=== PATIENT | female | born 1990 | race Caucasian/White ===

== ENCOUNTER 2016-12-07 15:04 | Emergency (ER) | payer OTHER ==
[~2016-12-07] VITALS: Ht 167.6 cm; Wt 117.9 kg
[~2016-12-07 15:04] MED LIST: IBUP-1428 PO
[2016-12-07 15:08] VITALS: TEMP 36.5; Ht 167.6 cm; Wt 117.9 kg
[2016-12-07] MEDS ORDERED: PROPARACAINE HCL 0.5% OP SOLN 15 ML BTL OP STA (15:27)
--- NOTE | 2016-12-07 16:35 | EMERGENCY ROOM VISIT NOTE ---
History First contact with patient: 15:20 Chief Complaint: EYE ASSESSMENT Stated Complaint: HAVING PROBLEMS W VISION History of Present Illness The patient is a 26 year old female who presents to the Emergency Room via private vehicle with complaints of "having problems with vision". The patient states that around 8 AM today she woke up with what she describes as eye pain bilaterally, that is worse with looking at bright lights. She states that she rates the pain as a 7/10. She describes as an achy sensation in the eyes bilaterally. There is no eye pressure or headache. She denies any speech troubles, weakness, sensation of foreign body in the eye, fever, chills, nausea , vomiting, history of contacts, trauma to the head. She does note that she lightly struck the forehead region about 5 days ago while taking the dog outside. There was no loss of consciousness or symptoms afterward. She did see her eye doctor in November, noted minor changes in vision and she began wearing her glasses 1 month ago. Review of Systems A complete 6-point Review of Systems was discussed with the patient, with pertinent positives and negatives listed in the History of Present Illness. All remaining Review of Systems questions can be considered negative unless otherwise specified. Past Medical/Surgical History Medical Problems: (1) Abdominal pain (2) Abdominal pain (3) Abdominal pain (4) Abdominal pain in (5) Abdominal pain in (6) Arm paresthesia, left (7) Headache (8) Kidney stone (9) Lyme disease (10) Nausea With Vomiting (11) Paresthesia and pain of both upper extremities (12) Paresthesia and pain of both upper extremities (13) Paresthesia of left arm (14) Sinusitis (15) Tobacco Use Disorder (16) Urinary tract infection (17) Urinary tract infection (18) Weakness Surgical Problems: (1) Cholecystectomy (2) Tubal ligation status Family History Asthma Diabetes mellitus FH: cancer Hypertension Seizures Social History Smoking Status: Never Smoker Alcohol Use: occasionally Drug Use: none Marital Status: in relationship Housing Status: lives with family Occupation Status: unemployed Current/Historical Medications Scheduled Clindamycin Phosphate (Topical (Cleocin-T), 1 APPLN TOP BID Scheduled PRN Ibuprofen (Motrin), 800 MG PO Q6H PRN for Pain Allergies Coded Allergies: Latex (Verified Allergy, Mild, ., 12/07/16) Physical Exam Vital Signs Date Time Temp Pulse Resp B/P Pulse Ox O2 Delivery O2 Flow Rate FiO2 12/07/16 16:43 80 16 148/94 98 12/07/16 15:08 36.5 69 18 131/80 98 Room Air Right Eye Acuity: 20/15 Left Eye Acuity: 20/20 Physical Exam VITAL SIGNS - Vital signs and nursing notes were reviewed. Patient is afebrile , normotensive, non-tachycardic and is saturating well on room air 98%. GENERAL -26-year-old female appearing her stated age. Communicates well with provider and answers questions appropriately. HEAD - Normocephalic, Atraumatic. No William's Sign or Raccoon's Eyes. No depressed skull fractures palpable. EYES - PERRL with EOMI bilaterally. Sclera without noticeable foreign body or excoriations. No conjunctival injection noted in the either eye. Without subconjunctival hemorrhage. Palpebral conjunctiva pink and moist with no injection or discharge noted. Brief fundoscopic exam demonstrates no AV-nicking , cotton wool spots, or flame hemorrhages. Slit lamp examination performed as further described. EARS - No deformities of external structures noted on gross examination bilaterally. Handle of malleus, umbo, cone of light, pars tensa/flaccid all easily visualized. NOSE - Midline and without cyanosis. Without discharge. MOUTH/OROPHARYNX - Without perioral cyanosis. Tongue midline with equal elevation of palate bilaterally. No tonsillar hypertrophy, erythema, or exudates noted. Fair dentition noted. NECK - FROM assessed. No cervical lymphadenopathy noted. Slit Lamp Examination was performed of the bilateral eye(s). Alcaine drops were applied to the affected eye(s) for proper anesthetization. The affected eye(s) were stained with Fluorescein stain to precipitate adequate visualization of any conjunctival/scleral excoriations or ulcers. The patient's face was comfortably rested on the chin guard of the slit lamp apparatus. The lights were dimmed and the affected eye(s) were thoroughly examined under microscopy using the blue light. He diffuse haze of uptake was present but no identifiable abrasions comedogenic lesions, ulcerations or evidence of keratitis. I suspect that the generalized haze may be secondary to environmental irritants that may have been sustained yesterday such as waned, and dry heat Additionally, the eye(s) were examined under microscopy using the regular light. Close examination revealed no abnormalities. 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 Funduscopic exam with both the coags will and panoptic scope revealed normal funduscopic exam. Patient tolerated the procedure well and no complications were met. An Automated Tonometer was utilized to obtain bilateral orbital pressures. The pressures in the LEFT eye were found to be 15, 14, 16 and 16 with an average of 15.3. The pressures in the RIGHT eye were found to be 16, 13, 14 and 17 with an average of 15.0. Patient tolerated the procedure well and no complications were met. Medical Decision & Procedures Medical Decision Patient was seen and evaluated as above. After obtaining a thorough history and physical examination pressures were obtained of the eyes and were noted to be normal. Patient's visual acuity was also within normal limits. She complained of no trouble with vision. There was only bilateral eye pain. I did obtain Alcaine drops, and anesthetize the eyes which nearly relieved her pain completely. I then performed a slit lamp exam as described above. There was diffuse very minimal uptake, likely secondary to irritation such as wind or try heat yesterday. No evidence of keratitis. There was no flare or cells visualized. I did discuss the case with the attending, and then discussed the case with the on-call town planner, Dr. Dejesus, at 4:26 PM. He recommended I provide the patient with artificial tears. He also noted that patient may call his office on Friday if symptoms persist. He and I both agree the patient does not appear to have any emergent nature to this. The patient is stable for discharge. She stated that she felt comfortable purchasing artificial tears [id number]. She was educated upon today's findings and worrisome symptoms in which to return. She questions answered prior to discharge, and was discharged home in good condition. I suspect the patient is experiencing bilateral eye irritation secondary to either the wind or dry heat. In the evaluation and treatment of this patient, the following differential diagnoses were considered: Corneal Abrasion, Conjunctivitis, Eye Contusion, Globe Injury, Orbital Floor Injury (Blowout Fracture), Corneal Ulcer, Keratitis , Herpes Zoster Opthalmic, Blepharitis, Orbital Cellulitis, Iritis, Scleritis/ Episcleritis, Uveitis, Temporal Arteritis, Subconjunctival Hemorrhage. Impression Primary Impression: Irritation of both eyes Departure Information Dispostion Home / Self-Care Condition GOOD Referrals Jose Garcia M.D. (PCP) Evens Robertson M.D. Patient Instructions My [facility] Additional Instructions You have been treated in the Emergency Department today for your eye pain. Please use artificial tears in her eyes to help lubricate them. For pain control, you can use the following [id number] medicines (if >12 yo): - Regular strength (325mg/tab) Tylenol (acetaminophen) 2 tabs every 4-6 hours as needed. Do not exceed 12 tablets in a 24 hour period. Avoid taking more than 4 grams (4000 mg) of Tylenol per day. This includes any other sources of acetaminophen you may take on a regular basis. - Regular strength (200 mg/tab) Advil (ibuprofen) 1-2 tabs every 4-6 hours as needed. Do not exceed a dose of 3200 mg per day. You should relax in a quiet, dark place for the rest of the day. You should wear sunglasses while outside for the next few days until your eyes are not as sensitive to the light. You should schedule a follow-up appointment in 2-3 days with your Primary Care Provider or established Eye Doctor (Sr. Operations Manager) for further evaluation and treatment of your Corneal Abrasion. (Dr. Robertson) please feel free to call this number first thing Friday to schedule follow-up if your symptoms persist, or return here if worsening. Return to the Emergency Department if your current symptoms worsen despite treatment course outlined above, or if you develop any of the following symptoms : intractable pain, visual disturbances, loss of vision, increased redness, swelling, drainage, or if you develop a fever. Please return to the emergency department with any new/concerning symptoms from your standpoint.
[2016-12-07 16:43] VITALS: BP 148/94; PULSE 80; O2SAT 98
[2017-06-02] MEDS ORDERED: MECL1TAB40 PO (13:02)
[2017-06-02] MEDS ORDERED: VNTHFA/IN INH (16:26)
== END 2016-12-07 16:46 | disposition home or self-care (01) ==
LOC: C.EDB 15:05 → C.EDD 16:46
DX: H57.8 Other specified disorders of eye and adnexa (principal)

== ENCOUNTER 2016-12-09 16:04 | Emergency (ER) | payer OTHER ==
[~2016-12-09] VITALS: Ht 167.6 cm; Wt 117.0 kg
[2016-12-09 16:09] VITALS: TEMP 36.4; Ht 167.6 cm; Wt 117.0 kg
[2016-12-09] MEDS ORDERED: KETOROLAC TROMETHAMINE 60 MG/2 ML VIAL IM STA (16:38)
[2016-12-09] MEDS ORDERED: DEXAMETHASONE SOD INJ 10 MG/ML VIAL IM ONE (16:45)
--- NOTE | 2016-12-09 19:29 | EMERGENCY ROOM VISIT NOTE ---
History First contact with patient: 16:09 Chief Complaint: EYE ASSESSMENT Stated Complaint: EYES HURT, HARD TO SEE BRIGHTNESS, MIGRAINE History of Present Illness The patient is a 26 year old female who presents to the Emergency Room with complaints of bilateral eye pain, photophobia and blurred vision. The patient states that she was seen here 2 days ago for the same symptoms of eye irritation. She states the pain has been getting worse. She now has a headache which she describes as being over the forehead region. She states that the pain is making her nauseated. She rates the pain at a 9 out of 10. She states the visual changes or worsen Friday. The patient has been taken ibuprofen without any relief. The patient denies any URI symptoms of fever, cough, sore throat, ear pain or head congestion. The patient wears glasses. She denies wearing contacts. The patient sees [facility] for her glasses. The patient was instructed to follow-up with Dr. Robertson after her ER visit 2 days ago. She states she called their office to make a follow-up appointment and was told that they do not take her insurance and that she would have to pay out of pocket. Therefore the patient decided to come back to the emergency room. Review of Systems 6 system review was performed and was negative unless stated otherwise in history of present illness. Past Medical/Surgical History Medical Problems: (1) Abdominal pain (2) Abdominal pain (3) Abdominal pain (4) Abdominal pain in (5) Abdominal pain in (6) Arm paresthesia, left (7) Headache (8) Kidney stone (9) Lyme disease (10) Nausea With Vomiting (11) Paresthesia and pain of both upper extremities (12) Paresthesia and pain of both upper extremities (13) Paresthesia of left arm (14) Sinusitis (15) Tobacco Use Disorder (16) Urinary tract infection (17) Urinary tract infection (18) Weakness Surgical Problems: (1) Cholecystectomy (2) Tubal ligation status Family History Asthma Diabetes mellitus FH: cancer Hypertension Seizures Social History Smoking Status: Never Smoker Alcohol Use: occasionally Drug Use: none Marital Status: in relationship Housing Status: lives with family Occupation Status: unemployed Current/Historical Medications Scheduled Clindamycin Phosphate (Topical (Cleocin-T), 1 APPLN TOP BID Scheduled PRN Albuterol Hfa (Ventolin Hfa), 2 PUFFS INH Q6H PRN for SOB/Wheezing Ibuprofen (Motrin), 800 MG PO Q6H PRN for Pain Allergies Coded Allergies: Latex (Verified Allergy, Mild, ., 12/09/16) Physical Exam Vital Signs Date Time Temp Pulse Resp B/P Pulse Ox O2 Delivery O2 Flow Rate FiO2 12/09/16 16:09 36.4 81 20 128/81 99 Room Air Right Eye Acuity: 20/20 Left Eye Acuity: 20/20 Physical Exam GENERAL: 26-year-old white female appears in no acute distress. MENTAL STATUS: Alert and oriented 3. EYES: PERRLA. The sclera on the right eye has a purplish hue. No injection is noted bilaterally. EOMs intact. Funduscopic exam is limited but no distinct abnormality noted. EARS: Canals with cerumen unable to visualize TMs. NECK: Supple, no lymphadenopathy noted. No carotid bruits noted. LUNGS: Clear auscultation without wheezes rales or rhonchi. CARDIAC: Regular rate and rhythm without murmur. Pulses is full and equal throughout. NEURO:Cranial nerves two through 12 intact. Cerebellar function intact with ivmzaq-ko-uity. Fine motor intact with alternating finger motions. Medical Decision & Procedures Medications Administered Medications (Trade) Dose Ordered Sig/Bjorn Route Start Time Stop Time Status Last Admin Dose Admin Dexamethasone Sodium Phosphate (Decadron Inj) 10 mg NOW ONCE IM 12/09/16 16:45 12/09/16 16:46 DC 12/09/16 17:01 10 MG Ketorolac Tromethamine (Toradol Inj) 60 mg NOW STAT IM 12/09/16 16:38 12/09/16 16:40 DC 12/09/16 17:00 60 MG ED Course The patient was evaluated. The patient's EMR was reviewed from her last ER visit with similar symptoms. She had a slit lamp exam performed at that time as well as eye pressures which were all normal. She did not have the purplish hue to the right sclera at that time. I feel that this is most likely scleritis. Since it is almost certain that this patient will not follow up on an outpatient basis due to having to pay out of pocket, Dr. Lockett was consulted and will come evaluate the patient in the emergency room. He was consulted at approximately 4:50 PM but stated he would not get here until at the earliest 6: 30. The patient was willing to wait for Dr. Lockett. In the interim the patient was given Decadron 10 mg IM and Toradol [address] Lockett came to evaluate the patient. Please see his note for details. He informed me that he did not see any abnormality. He suspected that she had dry eyes. The patient is to use artificial tears 4 times a day into both eyes. And use ketorolac eye drops into the left eye as directed. The patient was informed of the treatment plan and was in agreement. The patient was discharged home in stable condition Medical Decision Differential diagnosis include scleritis, corneal abrasion, retinal detachment, glaucoma, dry eyes Impression Primary Impression: Dry eyes, bilateral Departure Information Dispostion Home / Self-Care Condition GOOD Referrals Jose Garcia M.D. (PCP) Forms HOME CARE DOCUMENTATION FORM, IMPORTANT VISIT INFORMATION, WORK / SCHOOL INSTRUCTIONS Patient Instructions My [facility] Additional Instructions Use artificial tears into both eyes 4 times a day. Use ketorolac drops into the left eye one drop 4 times a day for one week then one drop in the left eye twice daily for another week then stop. If symptoms persist, follow-up with your radio installer or Dr. Lockett
[2016-12-09 19:36] VITALS: BP 122/79; PULSE 83; O2SAT 99
--- NOTE | 2016-12-09 22:49 | OPHTHALMOLOGY CONSULTATION ---
DATE OF CONSULTATION: 12/09/2016 CONSULT REQUESTED BY ATTENDING PHYSICIAN: Dr. Portillo Joaquin. CHIEF COMPLAINT AND HISTORY OF PRESENT ILLNESS: This is a 26-year-old female with a past medical history of Lyme disease, who presented to the Emergency Department for evaluation of eye pain. She actually initially came to the Emergency Room on 12/07/2016 to be evaluated for bilateral eye pain and light sensitivity. She describes the pain as achy but denies any headache or significant vision change. She says that if she had to compare the right and left eye, she thinks the left eye may be slightly blurry compared to the right. She does have a history of mild trauma where she hit her forehead a week ago when she was walking her dog. She was also actually seen by her primary eye physician in [place] last month and received new glasses which she says are working well for her. When she was evaluated by the Emergency Room staff on 12/07/2016, she was told to use artificial tears and have outpatient followup. She was unable to get an appointment with her eye doctor today, and as she was still having left eye discomfort, she returned to the Emergency Department for further evaluation. PAST MEDICAL HISTORY: Positive for Lyme disease. PAST SURGICAL HISTORY: Cholecystectomy. MEDICINES: Include clindamycin. ALLERGIES: LATEX. FAMILY HISTORY: Positive for type 2 diabetes, hypertension and seizures. SOCIAL HISTORY: Occasional alcohol use. PHYSICAL EXAMINATION: Her visual acuity is 20/20 in both eyes with correction. Her intraocular pressures are normal to palpation. Her extraocular movements are full in both eyes. 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 The cornea on the right side is clear with a rapid tear breakup time of 3-4 seconds. The anterior chamber is deep and quiet. The iris is round with no defects and the lens is clear. For the left eye, the lids, lashes and lacrimal glands are within normal limits. The conjunctiva and sclerae are white and quiet. The cornea is clear and there is some rapid tear breakup time of 3-4 seconds. The anterior chamber is deep and quiet. The iris is normal and the lens is clear. The dilated fundus exam shows cup-to-disc ratios of 0.3 bilaterally, and the macular vessels and peripheral retina are within normal limits on both sides. ASSESSMENT AND PLAN: This is a 26-year-old female with left eye discomfort x3-4 days. 1. There is no significant ocular pathology on the exam to explain her symptoms. She does have some mild dry eye and we discussed ways to treat this with [id number] artificial tear use at least 3-4 times daily. To try to help with her left eye discomfort, I would recommend a short course of treatment with a nonsteroidal anti-inflammatory eyedrop called ketorolac to use 4 times a day for a week, then twice a day for a week, then stop. I would recommend that she follow up with her primary eye doctor in [place] or with [facility] in [place] if she is unable to get an appointment with her doctor if her symptoms continue. Thank you for this consult.
[2017-06-02] MEDS ORDERED: MECL1TAB40 PO (13:02)
[2017-06-02] MEDS ORDERED: VNTHFA/IN INH (16:26)
== END 2016-12-09 19:37 | disposition home or self-care (01) ==
LOC: C.EDB 16:07 → C.EDD 19:37
DX: H04.123 Dry eye syndrome of bilateral lacrimal glands (principal)

== ENCOUNTER 2017-03-07 10:54 | Emergency (ER) | payer OTHER ==
[~2017-03-07] VITALS: Ht 170.2 cm; Wt 115.0 kg
[2017-03-07 10:57] VITALS: TEMP 36.7; Ht 170.2 cm; Wt 115.0 kg
[2017-03-07] MEDS ORDERED: HYDROCODONE/ACETAMOPHEN 5/325MG TAB PO STA (11:06)
--- NOTE | 2017-03-07 11:17 | EMERGENCY ROOM VISIT NOTE ---
History First contact with patient: 10:59 Chief Complaint: ANKLE PAIN Stated Complaint: SWELLING TO RIGHT ANKLE W/BLACK AND BLUE History of Present Illness The patient is a 26 year old female who presents to the Emergency Room via private vehicle accompanied by female with complaints of "swelling the right ankle with black and blue". The patient states that she was seen here 9 months ago for right ankle inversion injury. She was discharged home with crutches any gel ankle splint and had use those until resolution of her pain. She did follow up with Dr. Cartagena, and then Dr. Antony. She denies any new injury but states that she is progressively been experiencing increased pain behind the right posterior malleolar region followed by ecchymosis and swelling. She notes the pain has not fully gone away. She feels is now getting worse but has not identified any new injury to the area. She notes this morning she was unable to weight on it secondary to pain in the right posterior malleolus region. She rates the pain as an 8/10. There is minimal tingling. There has been swelling for the past few months. She denies any calf pain, chest pain, shortness of breath, fevers, chills. Review of Systems A complete 6-point Review of Systems was discussed with the patient, with pertinent positives and negatives listed in the History of Present Illness. All remaining Review of Systems questions can be considered negative unless otherwise specified. Past Medical/Surgical History Medical Problems: (1) Abdominal pain (2) Abdominal pain (3) Abdominal pain (4) Abdominal pain in (5) Abdominal pain in (6) Arm paresthesia, left (7) Headache (8) Kidney stone (9) Lyme disease (10) Nausea With Vomiting (11) Paresthesia and pain of both upper extremities (12) Paresthesia and pain of both upper extremities (13) Paresthesia of left arm (14) Sinusitis (15) Tobacco Use Disorder (16) Urinary tract infection (17) Urinary tract infection (18) Weakness Surgical Problems: (1) Cholecystectomy (2) Tubal ligation status Family History Asthma Diabetes mellitus FH: cancer Hypertension Seizures Social History Smoking Status: Never Smoker Alcohol Use: occasionally Drug Use: none Marital Status: in relationship Housing Status: lives with family Occupation Status: unemployed Current/Historical Medications Scheduled Clindamycin Phosphate (Topical (Cleocin-T), 1 APPLN TOP BID Scheduled PRN Albuterol Hfa (Ventolin Hfa), 2 PUFFS INH Q6H PRN for SOB/Wheezing Ibuprofen (Motrin), 800 MG PO Q6H PRN for Pain Allergies Coded Allergies: Latex (Verified Allergy, Mild, ., 12/09/16) Physical Exam Vital Signs Date Time Temp Pulse Resp B/P (MAP) Pulse Ox O2 Delivery O2 Flow Rate FiO2 03/07/17 10:57 36.7 68 18 125/81 99 Room Air Physical Exam VITAL SIGNS - Vital signs and nursing notes were reviewed. Patient is afebrile , normotensive, non-tachycardic and is saturating well on room air and 99%. GENERAL -26-year-old female appearing her stated age who is in no acute distress. Communicates well with provider and answers questions appropriately. SKIN - Without rashes. The skin overlying the right lateral malleolus region is slightly edematous, minimal bruising noted. The calf and garcia is unremarkable. Of the right lower extremity EXTREMITIES - No clubbing or peripheral cyanosis. No pretibial edema present. Patient is neurovascularly intact in the right lower extremity. There is tenderness to palpation overlying the region just posterior to the right malleolus. Minimal tenderness to palpation of this region. There is no tenderness to the calf, tibia/fibular region or foot. This is localized only to the right lateral malleolar region. +5/5 strength noted in UE/LE bilaterally. Medical Decision & Procedures ER Provider Diagnostic Interpretation: RIGHT ANKLE MIN 3 VIEWS ROUTINE CLINICAL HISTORY: Right ankle pain status post trauma COMPARISON: 05/07/2016 DISCUSSION: No acute fractures are visualized. There is a curvilinear corticated density projected adjacent the lateral malleolar tip. This is felt to represent an old avulsion. There are small plantar calcaneal spur. The ankle mortise appears intact. IMPRESSION: No acute fractures or dislocations identified Electronically signed by: Jovan Mckay M.D. 03/07/2017 11:50 AM Dictated Date/Time: 03/07/2017 11:49 AM Medications Administered Medications (Trade) Dose Ordered Sig/Bjorn Route Start Time Stop Time Status Last Admin Dose Admin Acetaminophen/ Hydrocodone Bitart ([place] 5/325 Tab) 1 tab NOW STAT PO 03/07/17 11:06 03/07/17 11:08 DC 03/07/17 11:12 1 TAB Medical Decision Patient was seen and evaluated as above. After obtaining a thorough history and physical examination previous visit was extensively reviewed. Patient was seen here approximately 9 months ago for a similar complaint. She was discharged home with splint and crutches. Radiographs were reviewed, no acute fracture was noted. There was an old injury noted. This was discussed with the patient. After discussing benefits versus risks, I did elect to obtain repeat radiograph of the right ankle region. I do not suspect DVT or vascular abnormality in this case, the patient's pain and swelling is in the exact same location as the previous injury. She denied any new trauma, smoking, or central or history of blood clot. Patient notes pain ongoing for the past few months in the same region as the old injury. It appears that she has followed up regarding this injury, but appears to be experiencing continued pain. It is possible that she experienced a higher grade sprain previously and with continued ambulation has weak in this region. She feels as though the joint at times is unstable. Radiograph results as above. Old avulsion, no acute injury. Patient was informed upon these findings. She noted that she had in the past a gel ankle splint and crutches, but no longer has these. I did offer her new ones. She was fitted with a gel ankle splint and crutches. She is to be nonweightbearing until she follows up. She notes that she was not happy with the follow-up previously with orthopod's, therefore be referred to a new group. She is to call him later today or first thing Friday morning to establish follow-up. She is to return here with any worsening symptoms. She was educated upon worrisome symptoms which to return, had questions prior to discharge, and was discharged home in good condition. In the evaluation and treatment of this patient, the following differential diagnoses were considered: Ankle Fracture, Ankle Sprain, Distal Fibula Fracture , Distal Tibia Fracture, Foot Fracture, DVT, [place]uve Fracture, among others. Impression Primary Impression: Right ankle pain Departure Information Dispostion Home / Self-Care Condition GOOD Referrals Jose Garcia M.D. (PCP) Alton Saeed M.D. Patient Instructions My [facility] Additional Instructions You have been treated in the Emergency Department for a left Ankle pain/ swelling. You have received pain medicine in the emergency department which impairs your ability to operate a vehicle. It is illegal for you to drive after receiving these medicines. For pain control, you can use the following [id number] medicines (if >12 yo): - Regular strength (325mg/tab) Tylenol (acetaminophen) 2 tabs every 4-6 hours as needed. Do not exceed 12 tablets in a 24 hour period. Avoid taking more than 3 grams (3000 mg) of Tylenol per day. This includes any other sources of acetaminophen you may take on a regular basis. - Regular strength (200 mg/tab) Advil (ibuprofen) 1-2 tabs every 4-6 hours as needed. Do not exceed a dose of 3200 mg per day. If this is a recent injury (<24 hrs), ice can be applied to the area of pain for the first 3 days to help decrease pain and inflammation. You have been provided the number for an Orthopaedic Surgeon. You should call this number as soon as possible to establish a follow-up visit from today's Emergency Department visit. Keep the ankle brace/splint in place until cleared by Orthopedics. Use the crutches you have been provided to keep ALL weight off of the ankle until weight bearing is tolerable. Return to the Emergency Department if your current symptoms worsen despite treatment course outlined above, or if you develop any of the following symptoms : intractable pain despite aforementioned treatment course or new onset of numbness or tingling of the foot. Please return to the emergency department with any new/concerning symptoms.
--- NOTE | 2017-03-07 11:51 | DIAGNOSTIC IMAGING REPORT ---
RIGHT ANKLE MIN 3 VIEWS ROUTINE CLINICAL HISTORY: Right ankle pain status post trauma COMPARISON: 05/07/2016 DISCUSSION: No acute fractures are visualized. There is a curvilinear corticated density projected adjacent the lateral malleolar tip. This is felt to represent an old avulsion. There are small plantar calcaneal spur. The ankle mortise appears intact. IMPRESSION: No acute fractures or dislocations identified Electronically signed by: Jovan Mckay M.D. 03/07/2017 11:50 AM Dictated Date/Time: 03/07/2017 11:49 AM
[2017-03-07 12:20] VITALS: BP 126/78; PULSE 70; O2SAT 99
[2017-06-02] MEDS ORDERED: MECL1TAB40 PO (13:02)
[2017-06-02] MEDS ORDERED: VNTHFA/IN INH (16:26)
== END 2017-03-07 12:24 | disposition home or self-care (01) ==
LOC: C.EDB 10:56 → C.EDD 12:24
DX: M25.571 Pain in right ankle and joints of right foot (principal); Z82.5 Family history of asthma and other chronic lower respiratory diseases; Z83.3 Family history of diabetes mellitus; Z82.49 Family history of ischemic heart disease and other diseases of the circulatory system; Z82.0 Family history of epilepsy and other diseases of the nervous system

== ENCOUNTER 2017-03-24 16:33 | Emergency (ER) | payer OTHER ==
[~2017-03-24] VITALS: Ht 170.2 cm; Wt 116.0 kg
[2017-03-24 16:40] VITALS: TEMP 36.5; Ht 170.2 cm; Wt 116.0 kg
[2017-03-24] MEDS ORDERED: PRLSR20 PO (17:02)
[2017-03-24 17:34] LABS: MEAN CELL VOLUME 87.8 fL (80-100); MEAN CORPUSCULAR HEMOGLOBIN 28.2 pg (25-34); MEAN CORPUSCULAR HGB CONC 32.1 g/dl (32-36); MEAN PLATELET VOLUME 10.1 fL (7.4-10.4); PLATELET COUNT 306 K/uL (130-400); RED BLOOD COUNT 4.44 M/uL (4.2-5.4); WHITE BLOOD COUNT 13.68 K/uL (4.8-10.8)
[2017-03-24 17:51] LABS: ALT/SGPT 20 U/L (12-78); AST/SGOT 14 U/L (15-37); BLOOD UREA NITROGEN 8 mg/dl (7-18); CALCIUM 7.9 mg/dl (8.5-10.1); CARBON DIOXIDE 27 mmol/L (21-32); CHLORIDE 112 mmol/L (98-107); CREATININE 0.59 mg/dl (0.60-1.20); GLUCOSE 92 mg/dl (70-99); POTASSIUM 3.5 mmol/L (3.5-5.1); SODIUM 145 mmol/L (136-145)
[2017-03-24 17:57] LABS: BASO % 0.1 %; BASO ABS # 0.02 K/uL (0-0.2); COMPLETE YES; EOS % 2.2 %; IG% 0.4 %; LYMPH % 18.6 %; LYMPH ABS # 2.54 K/uL (1.2-3.4); MONO % 6.4 %; NEUT % 72.3 %
--- NOTE | 2017-03-24 17:57 | DIAGNOSTIC IMAGING REPORT ---
CHEST ONE VIEW PORTABLE CLINICAL HISTORY: Atypical chest and back pain. Left arm pain. COMPARISON STUDY: 10/19/2016 FINDINGS: The cardiac and mediastinal contours are normal. There is no evidence of focal pulmonary consolidation. There is no evidence of failure. No pleural effusions are visualized.[ IMPRESSION: No active disease in the chest. Electronically signed by: Jovan Mckay M.D. 03/24/2017 5:56 PM Dictated Date/Time: 03/24/2017 5:56 PM
[2017-03-24 18:02] LABS: ALB/GLOB RATIO 0.9 (0.9-2); ALKALINE PHOSPHATASE 101 U/L (45-117)
[2017-03-24 18:04] LABS: PREG INTERNAL NEGATIVE QC NEG CLEAR BACKGROUND; PREG INTERNAL POSITIVE QC POS CONTROL LINE
[2017-03-24] MEDS ORDERED: KETOROLAC TROMETHAMINE 30 MG/ML VIAL IV STA (18:38)
[2017-03-24] MEDS ORDERED: ALUMINUM/MAGNESIUM SUSP 30 ML UDC PO STA (18:38)
[2017-03-24] MEDS ORDERED: LORAZEPAM 2 MG/ML 1 ML VIAL IV STA (19:57)
--- NOTE | 2017-03-24 19:59 | EMERGENCY ROOM VISIT NOTE ---
History Report prepared by Sharon: Destiny Pedersen Under the Supervision of: Dr. Carola Bullard D.O. First contact with patient: 16:47 Chief Complaint: CHEST PAIN Stated Complaint: CHEST/BACK PAIN,LF ARM PAIN Nursing Triage Summary: pt reports left arm pain started around 1600 today has pain in back and chest. just came from bathroom feels nauseated History of Present Illness The patient is a 26 year old female who presents to the Emergency Room with complaints of constant chest pain starting 1 hour ago. The pain came on suddenly. She was feeling well before. After the chest pain started she developed numbness in her left arm and lower back pain. She reports nausea. She has pain in her right arm now. She did not take any medications for her pain. The pain does not change with movement. She reports feeling SOB and fatigue. She denies any dizziness, lightheadedness, vomiting, fever, chills, cough, bowel movement changes, urinary symptoms, or leg swelling. She denies any dietary changes, recent travel, change in activity, or changes in medication. She denies any history of thyroid problems, but it does run in her family. She notes her grandfather had a ID in his 50s. She denies any chance of . She denies any medical problems. She does not smoke. Source of History: patient Onset: 1 hour ago Position: chest Quality: other (pain) Timing: constant Associated Symptoms: + SOB, + nausea, + back pain, + fatigue, + numbness ( arm), No fevers, No chills, No cough, No vomiting, No urinary symptoms Note: Pt reports arm pain. Pt denies dizziness, lightheadedness, changes in bowel movement, leg swelling. Review of Systems See HPI for pertinent positives & negatives. A total of 10 systems reviewed and were otherwise negative. Past Medical & Surgical Medical Problems: (1) Abdominal pain (2) Abdominal pain (3) Abdominal pain (4) Abdominal pain in (5) Abdominal pain in (6) Arm paresthesia, left (7) Headache (8) Kidney stone (9) Lyme disease (10) Nausea With Vomiting (11) Paresthesia and pain of both upper extremities (12) Paresthesia and pain of both upper extremities (13) Paresthesia of left arm (14) Sinusitis (15) Tobacco Use Disorder (16) Urinary tract infection (17) Urinary tract infection (18) Weakness Surgical Problems: (1) Cholecystectomy (2) Tubal ligation status Family History Asthma Diabetes mellitus FH: cancer Hypertension Seizures Social History Smoking Status: Never Smoker Alcohol Use: occasionally Drug Use: none Marital Status: in relationship Housing Status: lives with family Occupation Status: unemployed Current/Historical Medications Scheduled Clindamycin Phosphate (Topical (Cleocin-T), 1 APPLN TOP BID Omeprazole (Prilosec), 20 MG PO DAILY Scheduled PRN Albuterol Hfa (Ventolin Hfa), 2 PUFFS INH Q6H PRN for SOB/Wheezing Ibuprofen (Motrin), 800 MG PO Q6H PRN for Pain Allergies Coded Allergies: Latex (Verified Allergy, Mild, ., 03/24/17) Physical Exam Vital Signs Date Time Temp Pulse Resp B/P (MAP) Pulse Ox O2 Delivery O2 Flow Rate FiO2 03/24/17 20:41 88 16 121/77 97 03/24/17 19:02 79 20 151/88 95 Room Air 03/24/17 17:47 79 19 120/59 97 03/24/17 16:53 92 03/24/17 16:40 36.5 100 18 112/75 95 Room Air Physical Exam GENERAL: tearful, alert, well appearing, well nourished, no distress, non-toxic EYE EXAM: normal conjunctiva, PERRL and EOM's grossly intact OROPHARYNX: no exudate, no erythema, lips, buccal mucosa, and tongue normal and mucous membranes are moist NECK: supple, no nuchal rigidity, no adenopathy, non-tender LUNGS: Clear to auscultation. Normal chest wall mechanics HEART: no murmurs, S1 normal and S2 normal ABDOMEN: obese abdomen, soft, non-tender, normo-active bowel sounds, no masses, no rebound or guarding. BACK: Back is symmetrical on inspection and there is no deformity, no midline tenderness, no CVA tenderness. SKIN: no rashes and no bruising UPPER EXTREMITIES: upper extremities are grossly normal. LOWER EXTREMITIES: No pitting edema. NEURO EXAM: Normal sensorium, cranial nerves II-XII grossly intact, normal speech, no gross weakness of arms, no gross weakness of legs. Medical Decision & Procedures ER Provider Diagnostic Interpretation: Xray results have been interpreted by the radiologist and by me. CHEST ONE VIEW PORTABLE CLINICAL HISTORY: Atypical chest and back pain. Left arm pain. COMPARISON STUDY: 10/19/2016 FINDINGS: The cardiac and mediastinal contours are normal. There is no evidence of focal pulmonary consolidation. There is no evidence of failure. No pleural effusions are visualized.[ IMPRESSION: No active disease in the chest. Electronically signed by: Jovan Mckay M.D. 03/24/2017 5:56 PM Dictated Date/Time: 03/24/2017 5:56 PM Laboratory Results 03/24/17 17:20 Red Blood Count 4.44, Mean Corpuscular Volume 87.8, Mean Corpuscular Hemoglobin 28.2, Mean Corpuscular Hemoglobin Concent 32.1, Mean Platelet Volume 10.1, Neutrophils (%) (Auto) 72.3, Lymphocytes (%) (Auto) 18.6, Monocytes (%) (Auto) 6.4, Eosinophils (%) (Auto) 2.2, Basophils (%) (Auto) 0.1, Neutrophils # (Auto) 9.90, Lymphocytes # (Auto) 2.54, Monocytes # (Auto) 0.87, Eosinophils # (Auto) 0.30, Basophils # (Auto) 0.02 03/24/17 17:20 Test 03/24/17 17:20 03/24/17 19:10 03/24/17 20:17 White Blood Count 13.68 K/uL (4.8-10.8) Red Blood Count 4.44 M/uL (4.2-5.4) Hemoglobin 12.5 g/dL (12.0-16.0) Hematocrit 39.0 % (37-47) Mean Corpuscular Volume 87.8 fL (80-100) Mean Corpuscular Hemoglobin 28.2 pg (25-34) Mean Corpuscular Hemoglobin Concent 32.1 g/dl (32-36) Platelet Count 306 K/uL (130-400) Mean Platelet Volume 10.1 fL (7.4-10.4) Neutrophils (%) (Auto) 72.3 % Lymphocytes (%) (Auto) 18.6 % Monocytes (%) (Auto) 6.4 % Eosinophils (%) (Auto) 2.2 % Basophils (%) (Auto) 0.1 % Neutrophils # (Auto) 9.90 K/uL (1.4-6.5) Lymphocytes # (Auto) 2.54 K/uL (1.2-3.4) Monocytes # (Auto) 0.87 K/uL (0.11-0.59) Eosinophils # (Auto) 0.30 K/uL (0-0.5) Basophils # (Auto) 0.02 K/uL (0-0.2) RDW Standard Deviation 43.4 fL (36.4-46.3) RDW Coefficient of Variation 13.6 % (11.5-14.5) Immature Granulocyte % (Auto) 0.4 % Immature Granulocyte # (Auto) 0.05 K/uL (0.00-0.02) Anion Gap 6.0 mmol/L (3-11) Est Creatinine Clear Calc Drug Dose 191.8 ml/min Estimated GFR () 147.6 Estimated GFR (Non- 127.4 BUN/Creatinine Ratio 13.0 (10-20) Calcium Level 7.9 mg/dl (8.5-10.1) Total Bilirubin 0.2 mg/dl (0.2-1) Aspartate Amino Transf (AST/SGOT) 14 U/L (15-37) Alanine Aminotransferase (ALT/SGPT) 20 U/L (12-78) Alkaline Phosphatase 101 U/L (45-117) Troponin I < 0.015 ng/ml (0-0.045) Total Protein 7.0 gm/dl (6.4-8.2) Albumin 3.3 gm/dl (3.4-5.0) Globulin 3.7 gm/dl (2.5-4.0) Albumin/Globulin Ratio 0.9 (0.9-2) Thyroid Stimulating Hormone (TSH) 0.870 uIu/ml (0.300-4.500) Human Chorionic Gonadotropin, Qual NEG (NEG) D-Dimer < 190 ug/L FEU (0-500) Bedside Troponin I < 0.030 ng/ml (0-0.045) Laboratory results per my review. Medications Administered Medications (Trade) Dose Ordered Sig/Bjorn Route Start Time Stop Time Status Last Admin Dose Admin Ketorolac Tromethamine (Toradol Inj) 30 mg NOW STAT IV 03/24/17 18:38 03/24/17 18:39 DC 03/24/17 18:57 30 MG Al Hydroxide/Mg Hydroxide (Maalox Susp) 30 ml NOW STAT PO 03/24/17 18:38 03/24/17 18:39 DC 03/24/17 18:57 30 ML Lorazepam (Ativan Inj) 0.5 mg NOW STAT IV 03/24/17 19:57 03/24/17 19:58 DC 03/24/17 20:06 0.5 MG ECG Indication: chest pain Rate (beats per minute): 93 Rhythm: sinus rhythm Findings: no acute ischemic change, no ectopy, other (normal axis, normal intervals, low voltage throughout) ED Course 1649: The patient was evaluated in room C1B. A complete history and physical exam was performed. 1841: Upon reevaluation, the patient is still having pain, but appears more comfortable. 1958: Upon reevaluation, the patient is feeling better. I discussed the findings and the treatment plan with the patient. She verbalizes agreement and understanding. She was discharged home. Medical Decision Differential diagnosis: Etiologies such as cardiac ischemia, aortic dissection, pulmonary embolism, pneumonia, pneumothorax, musculoskeletal, infections, pericarditis, myocarditis , esophageal rupture, gastrointestinal, as well as others were entertained. Medication Reconciliation: I attest that I have personally reviewed the patient' s current medication list. Blood pressure screening: Patient was found to have normal blood pressure on screening and does not require follow-up. HEART score 1 Pt only risk factor for ACS is obesity. Labs otw reassuring. Pain improved here. Pt well appearing despite complaints. Vs stable. Doubt acs, dissection, tamponade, effusion, perf, gi bleed, infectious etiology. Discussed with pt more likely musculoskeletal, anxiety/stress, GERD. No recent URI/RAD sx to suggest additional occult pulmonary pathology. Discussed with pt f/u with her PCP, sx to watch/return for, she verbalized understanding and was agreeable with plan. Impression Primary Impression: CHEST PAIN, UNSPECIFIED Scribe Attestation The scribe's documentation has been prepared under my direction and personally reviewed by me in its entirety. I confirm that the note above accurately reflects all work, treatment, procedures, and medical decision making performed by me. Departure Information Dispostion Home / Self-Care Referrals Jose Garcia M.D. (PCP) Patient Instructions My [facility] Additional Instructions Please follow up with her family doctor regarding the episode of pain he had today. If you have any recurrent or worsening pain, develop trouble breathing, dizziness, nausea or vomiting, weakness, numbness or tingling, or you have any other new or concerning symptoms, please return the emergency room.
[2017-03-24 20:41] VITALS: BP 121/77; PULSE 88; O2SAT 97
--- NOTE | 2017-03-25 01:44 | EMERGENCY ROOM VISIT NOTE ---
ED Visit Note This patient was signed out to me at shift change by Dr. Bullard. At that point, the patient was doing well and her workup was complete with exception of a second troponin. Dr. Bullard and felt she could go home if the troponin was normal. The troponin was 0 and went back and I checked on the patient. She has been having some atypical chest pain and it is reproducible upon palpation .her EKG does not suggest ischemia. her troponin 2 was negative as well as her d-dimer was within normal limits and in a low pretest probability setting, makes PE highly unlikely. This may be more musculoskeletal or costochondritis. I will discharge her home and she should follow-up with her regular doctor.
[2017-06-02] MEDS ORDERED: MECL1TAB40 PO (13:02)
[2017-06-02] MEDS ORDERED: VNTHFA/IN INH (16:26)
== END 2017-03-24 20:42 | disposition home or self-care (01) ==
LOC: C.EDB 16:37 → C.EDC 20:42
DX: R07.89 Other chest pain (principal); Z82.49 Family history of ischemic heart disease and other diseases of the circulatory system; Z87.442 Personal history of urinary calculi; Z87.440 Personal history of urinary (tract) infections; Z90.49 Acquired absence of other specified parts of digestive tract; Z98.51 Tubal ligation status; Z82.5 Family history of asthma and other chronic lower respiratory diseases; Z83.3 Family history of diabetes mellitus; Z80.9 Family history of malignant neoplasm, unspecified; Z82.0 Family history of epilepsy and other diseases of the nervous system; Z79.899 Other long term (current) drug therapy

== ENCOUNTER → 2017-03-28 | Outpatient (CLI) | payer OTHER ==
[~2017-03-28] MED LIST changes: +CLIN1LOT TOP; +IBUP-103 PO; +MECL1TAB40 PO; +ONDA4TAB10 SL; +PRLSR20 PO; +SULF1TAB92 PO; +TRAM-10 PO; +VNTHFA/IN INH
== END | disposition home or self-care (01) ==
LOC: C.RDSM 10:20
PROVIDERS: ATTEND Physical Medicine & Rehabilitation Sports Medicine
DX: M25.571 Pain in right ankle and joints of right foot (principal)

== ENCOUNTER 2017-04-06 00:52 | Emergency (ER) | payer OTHER ==
[~2017-04-06] VITALS: Ht 170.2 cm; Wt 114.4 kg
[~2017-04-06 00:52] MED LIST changes: -CLIN1LOT TOP; -IBUP-103 PO; -MECL1TAB40 PO; -ONDA4TAB10 SL; -SULF1TAB92 PO; -TRAM-10 PO; -VNTHFA/IN INH
[2017-04-06 01:07] VITALS: TEMP 36.5; Ht 170.2 cm; Wt 114.4 kg
[2017-04-06] MEDS ORDERED: KETOROLAC TROMETHAMINE 30 MG/ML VIAL IV STA (01:30)
[2017-04-06] MEDS ORDERED: ONDANSETRON INJ 2 MG/ML 2 ML VIAL IV STA (01:30)
[2017-04-06] MEDS ORDERED: SODIUM CHLORIDE 0.9% 1000ML 1,000 ML IV ONE (01:30)
[2017-04-06 01:55] LABS: BASO % 0.2 %; BASO ABS # 0.03 K/uL (0-0.2); COMPLETE YES; EOS % 1.4 %; HEMATOCRIT 38.7 % (37-47); IG% 0.4 %; LYMPH % 20.5 %; LYMPH ABS # 3.86 K/uL (1.2-3.4); MEAN CELL VOLUME 85.8 fL (80-100); MEAN CORPUSCULAR HEMOGLOBIN 27.5 pg (25-34); MEAN PLATELET VOLUME 10.3 fL (7.4-10.4); MONO % 7.4 %; NEUT % 70.1 %; PLATELET COUNT 356 K/uL (130-400); RED BLOOD COUNT 4.51 M/uL (4.2-5.4); WHITE BLOOD COUNT 18.87 K/uL (4.8-10.8)
[2017-04-06 02:14] LABS: BUN/CREATININE RATIO 25.8 (10-20); CALCIUM 8.6 mg/dl (8.5-10.1); CREATININE 0.59 mg/dl (0.60-1.20); POTASSIUM 3.7 mmol/L (3.5-5.1)
[2017-04-06 02:17] LABS: ALB/GLOB RATIO 0.9 (0.9-2)
[2017-04-06 02:27] LABS: PREG INTERNAL NEGATIVE QC NEG CLEAR BACKGROUND; PREG INTERNAL POSITIVE QC POS CONTROL LINE
[2017-04-06 02:29] LABS: URINE APPEARANCE CLOUDY (CLEAR); URINE BILIRUBIN NEG (NEG); URINE COLOR DK YELLOW; URINE EPITHELIAL CELL AUTO >30 /lpf (0-5); URINE NITRITE NEG (NEG); URINE PH 6.5 (4.5-7.5); UROBILINOGEN NEG (NEG); ZZUR CULT IF INDIC CLEAN CATCH YES
[2017-04-06 02:34] LABS: MANUAL MICROSCOPIC REQUIRED? NO; REVIEW REQ? YES
[2017-04-06 02:48] LABS: LYME DISEASE AB IGG NEG (NEG); LYME DISEASE AB IGM NEG (NEG)
[2017-04-06 05:31] LABS: CSF APPEARANCE CLEAR; CSF CHEMISTRY TUBE # 2; CSF COLOR COLORLESS; CSF XANTHOCHROMIC NO XANTHOCHROMIA
[2017-04-06 05:39] LABS: CSF TOTAL PROTEIN 24.3 mg/dl (15.0-45.0)
[2017-04-06 06:42] VITALS: BP 124/77; PULSE 69; O2SAT 95
[2017-04-06] MEDS ORDERED: OXYCODONE IR HOME PACK PO ONE (06:45)
[2017-04-06] MEDS ORDERED: ONDANSETRON HOME PACK 4MG OD TAB PO ONE (06:45)
--- NOTE | 2017-04-06 07:54 | DIAGNOSTIC IMAGING REPORT ---
CT SCAN OF THE BRAIN WITHOUT IV CONTRAST CLINICAL HISTORY: Headache and dizziness. COMPARISON STUDY: CT of the brain dated 10/26/2014. TECHNIQUE: Unenhanced axial CT scan of the brain is performed from the vertex to the skull base. Automated dose control exposure was utilized. CT DOSE: 537.48 mGy.cm FINDINGS: Brain parenchyma: The brain parenchyma is normal in appearance. There is no hemorrhage, mass effect, or evidence of acute territorial ischemia by CT criteria. Gordon-white matter is preserved. No extra-axial fluid collection is seen. Ventricles, sulci, cisterns: Normal in configuration. Intracranial vasculature: The visualized intracranial vasculature at the skull base is normal in appearance. Calvarium: Unremarkable. Sinuses and mastoids: Trace fluid is seen within the sphenoid sinuses. The remaining visualized paranasal sinuses are clear. The mastoid air cells are well pneumatized. Orbits: The bony orbits are grossly intact. IMPRESSION: No acute intracranial abnormality. Electronically signed by: Armando Heller M.D. 04/06/2017 7:53 AM Dictated Date/Time: 04/06/2017 7:51 AM
--- NOTE | 2017-04-06 08:21 | EMERGENCY ROOM VISIT NOTE ---
ED Visit Note First contact with patient: 01:22 I saw this patient in conjunction with Bhavin Felder PA-C. I performed a lumbar puncture on her as described below. Lumbar puncture: We reviewed the risks and benefits with the patient. She was in agreement to have the procedure performed. I wore a gown, mask and sterile gloves. The patient was placed over a tray table with her back exposed. Landmarks were identified. The back was cleansed with Betadine. Landmarks were reidentified. Her back was draped with sterile dressings. The appropriate spinal level was anesthetized with buffered lidocaine. A spinal needle was inserted and CSF was obtained without difficulty. The patient tolerated this procedure well. She was made to lay flat for the next hour.
--- NOTE | 2017-04-06 08:46 | DIAGNOSTIC IMAGING REPORT ---
TWO VIEW CHEST CLINICAL HISTORY: Headache. Leukocytosis. Nausea and dizziness. FINDINGS: PA and lateral chest radiographs are compared to study dated 03/24/2017. The cardiomediastinal silhouette is unremarkable. The lungs and pleural spaces are clear. There is no pneumothorax. The bony thorax appears intact. Cholecystectomy clips are noted. IMPRESSION: No active disease in the chest. Electronically signed by: Armando Heller M.D. 04/06/2017 8:45 AM Dictated Date/Time: 04/06/2017 8:44 AM
--- NOTE | 2017-04-07 04:31 | EMERGENCY ROOM VISIT NOTE ---
History First contact with patient: :22 Chief Complaint: NECK PAIN Stated Complaint: NECK PAIN,HEADACHE,DIZZY,NAUSEA,BODYACHES History of Present Illness The patient is a 26 year old female who presents to the Emergency Room with several complaints bring her to the emergency department today. The patient states that around 3 hours ago she went to lay down to go to sleep tonight, when she began to develop left-sided neck pain. The patient progressively developed headache, nausea, dizziness, and generalized fatigue. She did not take anything [id number] for her symptoms. She became concerned that she may have Lyme disease as her mother was recently diagnosed with this. The patient has not had fever or chills. She is not photophobic. No chest pain, chest tightness, shortness of breath, or abdominal pain. She rates her current discomfort an 8/10 and nonradiating. She does not report aggravating or alleviating factors. Review of Systems More than 10 systems were reviewed and otherwise negative with the exception of history of present illness. Past Medical/Surgical History Medical Problems: (1) Abdominal pain (2) Abdominal pain (3) Abdominal pain (4) Abdominal pain in (5) Abdominal pain in (6) Arm paresthesia, left (7) Headache (8) Kidney stone (9) Lyme disease (10) Nausea With Vomiting (11) Paresthesia and pain of both upper extremities (12) Paresthesia and pain of both upper extremities (13) Paresthesia of left arm (14) Sinusitis (15) Tobacco Use Disorder (16) Urinary tract infection (17) Urinary tract infection (18) Weakness Surgical Problems: (1) Cholecystectomy (2) Tubal ligation status Family History Asthma Diabetes mellitus FH: cancer Hypertension Seizures Social History Smoking Status: Former Smoker Alcohol Use: occasionally Drug Use: none Marital Status: in relationship Housing Status: lives with family Occupation Status: unemployed Current/Historical Medications Scheduled Clindamycin Phosphate (Topical (Cleocin-T), 1 APPLN TOP BID Omeprazole (Prilosec), 20 MG PO DAILY Scheduled PRN Albuterol Hfa (Ventolin Hfa), 2 PUFFS INH Q6H PRN for SOB/Wheezing Ibuprofen (Motrin), 800 MG PO Q6H PRN for Pain Allergies Coded Allergies: Latex (Verified Allergy, Mild, ., 04/06/17) Physical Exam Vital Signs Date Time Temp Pulse Resp B/P (MAP) Pulse Ox O2 Delivery O2 Flow Rate FiO2 04/06/17 06:42 69 19 124/77 95 04/06/17 05:19 62 20 116/77 97 Room Air 04/06/17 03:20 84 18 120/67 98 Room Air 04/06/17 01:07 36.5 82 20 144/105 96 Room Air Pain Rating (0-10): 5.0 Physical Exam VITALS: Vitals are noted on the nurse's note and reviewed by myself. Vital signs stable. GENERAL: Well-developed, well-nourished, white female, who is in no acute distress and resting comfortably. Patient is cooperative with the examination. HEAD: Normocephalic atraumatic. NECK: Supple without nuchal rigidity. No lymphadenopathy. No thyromegaly. Cervical spine is nontender. Full range of motion of neck. HEART: Regular rate and rhythm without murmurs gallops or rubs. LUNGS: Clear to auscultation bilaterally without wheezes, rales or rhonchi. No retractions or accessory muscle use. ABDOMEN: Positive normal bowel sounds x 4. Soft, nontender, without masses or organomegaly. No guarding or rebound tenderness. MUSCULOSKELETAL: No muscle atrophy, erythema, or edema noted. Full range of motion without joint tenderness in all extremities. No tenderness to palpation. Normal gait. Strength 5/5 throughout. NEURO: Patient was alert and oriented to person place and time. CN II through XII grossly intact. Deep tendon reflexes 2+ throughout. No focal neurological deficits. No photophobia. SKIN: The skin was without rashes, erythema, edema, or bruising. Capillary reflex less than 2 seconds. Medical Decision & Procedures ER Provider Diagnostic Interpretation: CT SCAN OF THE BRAIN WITHOUT IV CONTRAST CLINICAL HISTORY: Headache and dizziness. COMPARISON STUDY: CT of the brain dated 10/26/2014. TECHNIQUE: Unenhanced axial CT scan of the brain is performed from the vertex to the skull base. Automated dose control exposure was utilized. CT DOSE: 537.48 mGy.cm FINDINGS: Brain parenchyma: The brain parenchyma is normal in appearance. There is no hemorrhage, mass effect, or evidence of acute territorial ischemia by CT criteria. Gordon-white matter is preserved. No extra-axial fluid collection is seen. Ventricles, sulci, cisterns: Normal in configuration. Intracranial vasculature: The visualized intracranial vasculature at the skull base is normal in appearance. Calvarium: Unremarkable. Sinuses and mastoids: Trace fluid is seen within the sphenoid sinuses. The remaining visualized paranasal sinuses are clear. The mastoid air cells are well pneumatized. Orbits: The bony orbits are grossly intact. IMPRESSION: No acute intracranial abnormality. TWO VIEW CHEST CLINICAL HISTORY: Headache. Leukocytosis. Nausea and dizziness. FINDINGS: PA and lateral chest radiographs are compared to study dated 03/24/2017. The cardiomediastinal silhouette is unremarkable. The lungs and pleural spaces are clear. There is no pneumothorax. The bony thorax appears intact. Cholecystectomy clips are noted. IMPRESSION: No active disease in the chest. Laboratory Results 04/06/17 01:44 Red Blood Count 4.51, Mean Corpuscular Volume 85.8, Mean Corpuscular Hemoglobin 27.5, Mean Corpuscular Hemoglobin Concent 32.0, Mean Platelet Volume 10.3, Neutrophils (%) (Auto) 70.1, Lymphocytes (%) (Auto) 20.5, Monocytes (%) (Auto) 7.4, Eosinophils (%) (Auto) 1.4, Basophils (%) (Auto) 0.2, Neutrophils # (Auto) 13.23, Lymphocytes # (Auto) 3.86, Monocytes # (Auto) 1.40, Eosinophils # (Auto) 0.27, Basophils # (Auto) 0.03 04/06/17 01:44 Test 04/06/17 00:00 04/06/17 01:44 04/06/17 05:00 Urine Color DK YELLOW Urine Appearance CLOUDY (CLEAR) Urine pH 6.5 (4.5-7.5) Urine Specific [place] 1.030 (1.000-1.030) Urine Protein NEG (NEG) Urine Glucose (UA) NEG (NEG) Urine Ketones TRACE (NEG) Urine Occult Blood NEG (NEG) Urine Nitrite NEG (NEG) Urine Bilirubin NEG (NEG) Urine Urobilinogen NEG (NEG) Urine Leukocyte Esterase NEG (NEG) Urine WBC (Auto) 1-5 /hpf (0-5) Urine RBC (Auto) 0-4 /hpf (0-4) Urine Hyaline Casts (Auto) 1-5 /lpf (0-5) Urine Epithelial Cells (Auto) >30 /lpf (0-5) Urine Bacteria (Auto) NEG (NEG) Urine Renal Epithelial Cells /lpf (0-5) Urine Yeast (Auto) (NONE PRSENT) Urine Test NEG (NEG) White Blood Count 18.87 K/uL (4.8-10.8) Red Blood Count 4.51 M/uL (4.2-5.4) Hemoglobin 12.4 g/dL (12.0-16.0) Hematocrit 38.7 % (37-47) Mean Corpuscular Volume 85.8 fL (80-100) Mean Corpuscular Hemoglobin 27.5 pg (25-34) Mean Corpuscular Hemoglobin Concent 32.0 g/dl (32-36) Platelet Count 356 K/uL (130-400) Mean Platelet Volume 10.3 fL (7.4-10.4) Neutrophils (%) (Auto) 70.1 % Lymphocytes (%) (Auto) 20.5 % Monocytes (%) (Auto) 7.4 % Eosinophils (%) (Auto) 1.4 % Basophils (%) (Auto) 0.2 % Neutrophils # (Auto) 13.23 K/uL (1.4-6.5) Lymphocytes # (Auto) 3.86 K/uL (1.2-3.4) Monocytes # (Auto) 1.40 K/uL (0.11-0.59) Eosinophils # (Auto) 0.27 K/uL (0-0.5) Basophils # (Auto) 0.03 K/uL (0-0.2) RDW Standard Deviation 42.3 fL (36.4-46.3) RDW Coefficient of Variation 13.4 % (11.5-14.5) Immature Granulocyte % (Auto) 0.4 % Immature Granulocyte # (Auto) 0.08 K/uL (0.00-0.02) Anion Gap 6.0 mmol/L (3-11) Est Creatinine Clear Calc Drug Dose 190.4 ml/min Estimated GFR () 147.6 Estimated GFR (Non- 127.4 BUN/Creatinine Ratio 25.8 (10-20) Calcium Level 8.6 mg/dl (8.5-10.1) Total Bilirubin 0.3 mg/dl (0.2-1) Aspartate Amino Transf (AST/SGOT) 13 U/L (15-37) Alanine Aminotransferase (ALT/SGPT) 18 U/L (12-78) Alkaline Phosphatase 99 U/L (45-117) Total Protein 7.3 gm/dl (6.4-8.2) Albumin 3.5 gm/dl (3.4-5.0) Globulin 3.8 gm/dl (2.5-4.0) Albumin/Globulin Ratio 0.9 (0.9-2) Lyme Disease IgG Antibody NEG (NEG) Lyme Disease IgM Antibody NEG (NEG) CSF Color COLORLESS CSF Appearance CLEAR CSF WBC 0 /uL (0-5) CSF RBC 0 /uL (0) CSF Xanthrochromic NO XANTHOCHROMIA CSF Cell Count Tube # 4 CSF Chemistry Tube # 2 CSF Glucose 59 mg/dl (40-70) CSF Total Protein 24.3 mg/dl (15.0-45.0) Medications Administered Medications (Trade) Dose Ordered Sig/Bjorn Route Start Time Stop Time Status Last Admin Dose Admin Sodium Chloride 1,000 ml @ 999 mls/hr Q1H1M ONCE IV 04/06/17 01:30 04/06/17 02:30 DC 04/06/17 01:54 999 MLS/HR Ketorolac Tromethamine (Toradol Inj) 30 mg NOW STAT IV 04/06/17 01:30 04/06/17 01:32 DC 04/06/17 01:52 30 MG Ondansetron HCl (Zofran Inj) 4 mg NOW STAT IV 04/06/17 01:30 04/06/17 01:32 DC 04/06/17 01:52 4 MG Ondansetron HCl (ZOFRAN ODT 4MG Home Pack) 1 homepack UD ONCE PO 04/06/17 06:45 04/06/17 06:46 DC 04/06/17 06:39 1 HOMEPACK Oxycodone HCl (Roxicodone Immediate Rel 5MG Home Pack) 1 homepack UD ONCE PO 04/06/17 06:45 04/06/17 06:46 DC 04/06/17 06:39 1 HOMEPACK ED Course Physical exam and history were performed. Nursing notes and EMR were reviewed. Patient appears to have neck pain and headache worsened over the past 3-4 hours. Additionally the patient is complaining of body aches. She is concerned for Lyme disease as her mother was recently diagnosed with this. IV access was established and labs were obtained. The patient was hydrated and medicated as above. The patient's blood work is as above and was reviewed. She does have a notably elevated white blood cell count of nearly 19,000. She does have a slight bandemia with this. She is not grossly anemic or with significant electrolyte imbalance. Transaminases are nondiagnostic. Lipase is negative. On reevaluation the patient continued to have persistent headache symptoms. Review of her EMR shows that she perpetually has an elevated white blood cell count that is typically around 12,000 and 13,000. This elevation today appears outside of normal even for her. The patient underwent chest x-ray which did not show evidence of acute process. I discussed the case with my attending physician, Dr. Mobley, who remain closely involved in patient care and decision making. We had a lengthy discussion with the patient regarding further options of care including a lumbar puncture. The risks and benefits were discussed at length, as well as possible complications and alternatives. The patient gave consent for lumbar puncture. Because of this a CT scan of the head was performed did not show acute bleed or contraindication to lumbar puncture. Lumbar puncture was performed by Dr. Mobley. Patient tolerated the procedure well and without complication. Please see Dr. Mobley's dictation for specifics regarding this procedure. The patient's CSF findings are without evidence of meningitis or blood. Overall the patient appears stable for discharge home. She likely has a musculoskeletal or tension type headache. The patient does not appear to have bleed or meningitis. I do not have a source for her elevated white blood cell count, and I do recommend that she follow-up on a very short interval with her primary care physician. The patient was educated on possibility of a spinal headache. She was otherwise invited back to the ER with any new, worsening, or concerning symptoms. She was given a home pack of oxycodone for pain control. The chart was completed utilizing [employer] Speech Voice Recognition Software. Grammatical errors, random word insertions, pronoun errors, and incomplete sentences are an occasional consequence of this system due to software limitations, ambient noise, and hardware issues. Any formal questions or concerns about the content, text, or information contained within the body of this dictation should be directly addressed to the provider for clarification. . Medical Decision The differential diagnosis includes, but is not limited to: acute intracranial bleed, meningitis, encephalitis, mass or mass effect, sinusitis, infection, tumor, headache, temporal arteritis and carbon monoxide exposure, and migraine. [place] Drug Monitoring Program Search Results: no issues identified Impression Primary Impression: Headache Additional Impressions: Elevated white blood cell count Neck pain Departure Information Dispostion Home / Self-Care Condition FAIR Forms HOME CARE DOCUMENTATION FORM, IMPORTANT VISIT INFORMATION Patient Instructions My [facility], ED Lumbar Puncture Normal Additional Instructions You were seen and evaluated today on an emergency basis only. This is not a substitute for, or an effort to provide, complete comprehensive medical care. It is not possible to recognize and treat all injuries or illnesses in a single emergency department visit. For this reason it is recommended that you followup with your primary care physician this week for ongoing care and evaluation. For baseline pain relief you may alternate ibuprofen and acetaminophen every 4 hours for pain control. Take 600 mg ibuprofen (Advil) and then 4 hours later take 1000 mg acetaminophen (Tylenol). Do not take more than 3000 mg acetaminophen in a single day. Oxycodone (OxyIR) 5mg (homepack): Take ONE pill every SIX hours for breakthrough pain. Avoid alcohol, operating machinery or dangerous equipment, working on ladders or roofs, DRIVING, or situations where being under the influence may be dangerous. It is recommended to use an [id number] stool softener such as Colace, 100mg twice daily while taking this medication to avoid constipation. Zofran 1 tablet every 6 hrs as needed for nausea. You are welcome to return to the emergency department anytime with new, worsening, or concerning symptoms. Problem Qualifiers Primary Impression: Headache Headache type: unspecified Headache chronicity pattern: acute headache Intractability: not intractable Qualified Codes: R51 - Headache
[2017-04-14 07:57] LABS: LYME IGG CSF NO BANDS DETECTED; LYME IGM CSF NO BANDS DETECTED
[2017-06-02] MEDS ORDERED: MECL1TAB40 PO (13:02)
[2017-06-02] MEDS ORDERED: VNTHFA/IN INH (16:26)
== END 2017-04-06 06:42 | disposition home or self-care (01) ==
LOC: C.EDB 00:53
DX: R51 Headache (principal); D72.829 Elevated white blood cell count, unspecified; M54.2 Cervicalgia; Z87.442 Personal history of urinary calculi; Z87.891 Personal history of nicotine dependence; Z87.440 Personal history of urinary (tract) infections; Z83.6 Family history of other diseases of the respiratory system; Z83.3 Family history of diabetes mellitus; Z80.9 Family history of malignant neoplasm, unspecified; Z82.49 Family history of ischemic heart disease and other diseases of the circulatory system

== ENCOUNTER 2017-04-09 12:01 | Emergency (ER) | payer OTHER ==
[2017-04-09 12:04] VITALS: TEMP 36.7; Ht 170.2 cm
[2017-04-09] MEDS ORDERED: DiphenhydrAMINE HCL 50 MG/ML VIAL IV STA (13:15)
[2017-04-09] MEDS ORDERED: SODIUM CHLORIDE 0.9% 1000ML 1,000 ML IV STA (13:15)
[2017-04-09] MEDS ORDERED: DEXAMETHASONE SOD INJ 10 MG/ML VIAL IV ONE (13:15)
[2017-04-09] MEDS ORDERED: PROCHLORPERAZINE 5 MG/ML 2 ML VIAL IV STA (13:15)
--- NOTE | 2017-04-09 13:16 | EMERGENCY ROOM VISIT NOTE ---
History Report prepared by Sharon: Romel Tirado Under the Supervision of: Dr. Miki Perales M.D. First contact with patient: 12:53 Chief Complaint: HEADACHE Stated Complaint: MIGRAINE, NECK STIFFNESS, BACK PAIN-SPINAL TAP DON History of Present Illness The patient is a 26 year old female who presents to the Emergency Room with complaints of a worsening headache that started a few days ago. She was seen here 4 days ago, and had a spinal tap done. The patient says that ever since then, she has been having neck stiffness, back pain, and a worsening headache. She states that this is the same headache as when she was here before, but worse. The patient says that her headache is so bad that she cannot stand or sit up. Standing and sitting up worsens the pain. The patient has only been laying down. The patient denies any abdominal pain. She has been taking ibuprofen, Aleve, and Excedrin for the pain, her last dose being yesterday. She did have a Lyme test which was negative. The patient denies any chance of . She is a non-smoker. Source of History: patient Onset: A few days ago Position: head Quality: other (headache) Timing: worsening Modifying Factors (Worsening): other (sitting or standing up) Modifying Factors (Relieving): other (laying down) Associated Symptoms: + back pain, No abdominal pain Note: Associated symptoms: Neck stiffness. Review of Systems See HPI for pertinent positives & negatives. A total of 10 systems reviewed and were otherwise negative. Past Medical & Surgical Medical Problems: (1) Abdominal pain (2) Abdominal pain (3) Abdominal pain (4) Abdominal pain in (5) Abdominal pain in (6) Arm paresthesia, left (7) Headache (8) Kidney stone (9) Lyme disease (10) Nausea With Vomiting (11) Paresthesia and pain of both upper extremities (12) Paresthesia and pain of both upper extremities (13) Paresthesia of left arm (14) Sinusitis (15) Tobacco Use Disorder (16) Urinary tract infection (17) Urinary tract infection (18) Weakness Surgical Problems: (1) Cholecystectomy (2) Tubal ligation status Family History Asthma Diabetes mellitus FH: cancer Hypertension Seizures Social History Smoking Status: Never Smoker Alcohol Use: occasionally Drug Use: none Marital Status: in relationship Housing Status: lives with family Occupation Status: unemployed Current/Historical Medications Scheduled Clindamycin Phosphate (Topical (Cleocin-T), 1 APPLN TOP BID Omeprazole (Prilosec), 20 MG PO DAILY Scheduled PRN Albuterol Hfa (Ventolin Hfa), 2 PUFFS INH Q6H PRN for SOB/Wheezing Ibuprofen (Motrin), 800 MG PO Q6H PRN for Pain Allergies Coded Allergies: Latex (Verified Allergy, Mild, ., 04/06/17) Physical Exam Vital Signs Date Time Temp Pulse Resp B/P (MAP) Pulse Ox O2 Delivery O2 Flow Rate FiO2 04/09/17 15:37 70 18 132/74 97 Room Air 04/09/17 13:41 65 18 134/87 100 Room Air 04/09/17 13:39 52 04/09/17 12:04 36.7 78 20 123/76 100 Room Air Physical Exam GENERAL: Patient is a healthy-appearing well-nourished 26 year old female. HEAD: Normocephalic atraumatic EYES: Ocular movements intact pupils equal and react to light OROPHARYNX mucous membranes are moist no exudates present no erythema or edema present NECK: Supple no nuchal rigidity CHEST: Good equal expansion LUNGS: Clear and equal to auscultation CARDIAC: Normal S1 and S2 ABDOMEN: Soft nontender no guarding BACK: No CVA tenderness EXTREMITIES: No pain upon palpation normal muscle strength in all groups no clubbing cyanosis or edema NEURO: Patient is following commands and answering questions appropriately. Alert and oriented x3 Cranial Nerves 2-12 grossly intact No evidence of meningitis or encephalitis on exam. Medical Decision & Procedures Laboratory Results 04/09/17 13:30 Red Blood Count 4.68, Mean Corpuscular Volume 87.0, Mean Corpuscular Hemoglobin 27.6, Mean Corpuscular Hemoglobin Concent 31.7, Mean Platelet Volume 10.7, Neutrophils (%) (Auto) 70.8, Lymphocytes (%) (Auto) 20.2, Monocytes (%) (Auto) 6.9, Eosinophils (%) (Auto) 1.6, Basophils (%) (Auto) 0.2, Neutrophils # (Auto) 8.94, Lymphocytes # (Auto) 2.55, Monocytes # (Auto) 0.87, Eosinophils # (Auto) 0.20, Basophils # (Auto) 0.03 04/09/17 13:30 Test 04/09/17 13:25 7/5/17 13:30 Urine Color YELLOW Urine Appearance CLEAR (CLEAR) Urine pH 7.5 (4.5-7.5) Urine Specific [place] 1.024 (1.000-1.030) Urine Protein NEG (NEG) Urine Glucose (UA) NEG (NEG) Urine Ketones NEG (NEG) Urine Occult Blood NEG (NEG) Urine Nitrite NEG (NEG) Urine Bilirubin NEG (NEG) Urine Urobilinogen NEG (NEG) Urine Leukocyte Esterase NEG (NEG) Urine Test NEG (NEG) White Blood Count 12.63 K/uL (4.8-10.8) Red Blood Count 4.68 M/uL (4.2-5.4) Hemoglobin 12.9 g/dL (12.0-16.0) Hematocrit 40.7 % (37-47) Mean Corpuscular Volume 87.0 fL (80-100) Mean Corpuscular Hemoglobin 27.6 pg (25-34) Mean Corpuscular Hemoglobin Concent 31.7 g/dl (32-36) Platelet Count 347 K/uL (130-400) Mean Platelet Volume 10.7 fL (7.4-10.4) Neutrophils (%) (Auto) 70.8 % Lymphocytes (%) (Auto) 20.2 % Monocytes (%) (Auto) 6.9 % Eosinophils (%) (Auto) 1.6 % Basophils (%) (Auto) 0.2 % Neutrophils # (Auto) 8.94 K/uL (1.4-6.5) Lymphocytes # (Auto) 2.55 K/uL (1.2-3.4) Monocytes # (Auto) 0.87 K/uL (0.11-0.59) Eosinophils # (Auto) 0.20 K/uL (0-0.5) Basophils # (Auto) 0.03 K/uL (0-0.2) RDW Standard Deviation 43.5 fL (36.4-46.3) RDW Coefficient of Variation 13.7 % (11.5-14.5) Immature Granulocyte % (Auto) 0.3 % Immature Granulocyte # (Auto) 0.04 K/uL (0.00-0.02) Anion Gap 8.0 mmol/L (3-11) Estimated GFR () 142.3 Estimated GFR (Non- 122.8 BUN/Creatinine Ratio 18.2 (10-20) Calcium Level 8.6 mg/dl (8.5-10.1) Total Bilirubin 0.3 mg/dl (0.2-1) Direct Bilirubin < 0.1 mg/dl (0-0.2) Aspartate Amino Transf (AST/SGOT) 10 U/L (15-37) Alanine Aminotransferase (ALT/SGPT) 17 U/L (12-78) Alkaline Phosphatase 95 U/L (45-117) Total Protein 7.2 gm/dl (6.4-8.2) Albumin 3.5 gm/dl (3.4-5.0) Lipase 114 U/L (73-393) Monoscreen NEG (NEG) Labs reviewed by ED physician. Medications Administered Medications (Trade) Dose Ordered Sig/Bjorn Route Start Time Stop Time Status Last Admin Dose Admin Prochlorperazine Edisylate (Compazine Inj) 10 mg NOW STAT IV 04/09/17 13:15 04/09/17 13:17 DC 04/09/17 13:35 10 MG Diphenhydramine HCl (Benadryl Inj) 50 mg NOW STAT IV 04/09/17 13:15 04/09/17 13:17 DC 04/09/17 13:35 50 MG Caffeine Citrated 500 mg/Sodium Chloride 1,025 ml @ 512.5 mls/ hr 1415 ONCE IV 04/09/17 14:15 04/09/17 16:14 DC 04/09/17 15:09 512.5 MLS/HR Sodium Chloride 1,000 ml @ 999 mls/hr Q1H1M STAT IV 04/09/17 13:15 04/09/17 14:15 DC 04/09/17 13:35 999 MLS/HR Dexamethasone Sodium Phosphate (Decadron Inj) 10 mg NOW ONCE IV 04/09/17 13:15 04/09/17 13:17 DC 04/09/17 13:35 10 MG Magnesium Sulfate (Magnesium Sulfate) 2 gm NOW STAT IV 04/09/17 13:28 04/09/17 13:29 DC 04/09/17 13:49 2 GM Ketorolac Tromethamine (Toradol Inj) 30 mg NOW STAT IV 04/09/17 14:57 04/09/17 14:58 DC 7/5/17 15:21 30 MG ED Course 1309: Past medical records reviewed. The patient was evaluated in room A9B. A complete history and physical examination was performed. 1315: Ordered Decadron Inj 10 mg IV, NSS 1000 ml @ 999 mls/hr IV, Benadryl Inj 50 mg IV, Compazine Inj 10 mg IV. 1328: Ordered Magnesium Sulfate 2 gm IV. 1350: I discussed the patient with Dr. Hooper of anesthesiology. 1415: Ordered Caffeine Citrated 500 mg/Sodium Chloride 1,025 ml @ 512.5 mls/hr IV. 1455: Upon reexamination the patient is resting.. I discussed results and treatment plan with the patient. She verbalizes agreement and understanding. The patient is ready for discharge. 1457: Ordered Toradol Inj 30 mg IV. Medical Decision Differential diagnosis: Etiologies such as migraine headache, meningitis, sinusitis, CO exposure, ICH, SAH, infection, tumor, headache, sinus thrombosis, arterial dissection, as well as others were entertained. Medication Reconciliation: I attest that I have personally reviewed the patient' s current medication list Blood Pressure Screening: Patient was found to have normal blood pressure on screening and does not require follow up. This is a 26-year-old female who presents emergency department complaining of headache take its worse when she sits up or stands up. The patient had a lumbar puncture performed 3 days ago. These laboratory results and culture results were reviewed by me. There were noted to be normal. The patient does have an elevation in her white blood count cell count however it is grossly decreased compared to 3 days ago. I do believe that the patient is doing better. She is able swallow her own saliva. An IV was established, patient given normal saline bolus, Compazine, Benadryl, caffeine, Decadron. I did discuss the case with anesthesia who agreed to do a blood patch. Repeat examination revealed improvement patient's symptoms. I do believe that the patient as well as to be discharged home for follow-up with neurology. Patient and family were in agreement with the treatment plan. Consults Time Called: 1340 Consulting Physician: Dr. Hooper of anesthesiology Returned Call: 1350 I discussed the patient with Dr. Hooper of anesthesiology. Impression Primary Impression: Headache, post-lumbar puncture Scribe Attestation The scribe's documentation has been prepared under my direction and personally reviewed by me in its entirety. I confirm that the note above accurately reflects all work, treatment, procedures, and medical decision making performed by me. Departure Information Dispostion Home / Self-Care Referrals Jose Garcia M.D. (PCP) Forms HOME CARE DOCUMENTATION FORM, IMPORTANT VISIT INFORMATION, School Instructions, Work Instructions Patient Instructions ED Headache Post Spinal Tap W Patch, My [facility] Additional Instructions Culture results are usually available in approx 48 hours You have been examined and treated today on an emergency basis only. This is not a substitute for, or an effort to provide, complete comprehensive medical care. It is impossible to recognize and treat all injuries or illnesses in a single emergency department visit. It is therefore important that you follow up closely with Dr Garcia. Call as soon as possible for an appointment. Thank you for your time and consideration. I look forward to speaking with you again soon. Please don't hesitate to call us if you have any questions.
[2017-04-09] MEDS ORDERED: MAGNESIUM SULFATE 1GM / D5W 1 GM BAG IV STA (13:28)
[2017-04-09 13:40] LABS: URINE APPEARANCE CLEAR (CLEAR); URINE BILIRUBIN NEG (NEG); URINE COLOR YELLOW; URINE NITRITE NEG (NEG); URINE PH 7.5 (4.5-7.5); URINE SPECIFIC GRAVITY 1.024 (1.000-1.030); UROBILINOGEN NEG (NEG)
[2017-04-09 13:41] LABS: BASO % 0.2 %; BASO ABS # 0.03 K/uL (0-0.2); COMPLETE YES; EOS % 1.6 %; HEMATOCRIT 40.7 % (37-47); IG% 0.3 %; LYMPH % 20.2 %; LYMPH ABS # 2.55 K/uL (1.2-3.4); MEAN CORPUSCULAR HEMOGLOBIN 27.6 pg (25-34); MEAN CORPUSCULAR HGB CONC 31.7 g/dl (32-36); MEAN PLATELET VOLUME 10.7 fL (7.4-10.4); MONO % 6.9 %; NEUT % 70.8 %; PLATELET COUNT 347 K/uL (130-400); RED BLOOD COUNT 4.68 M/uL (4.2-5.4); WHITE BLOOD COUNT 12.63 K/uL (4.8-10.8)
[2017-04-09 13:44] LABS: MANUAL MICROSCOPIC REQUIRED? NO; REVIEW REQ? NO
[2017-04-09 14:04] LABS: ALT/SGPT 17 U/L (12-78); BLOOD UREA NITROGEN 12 mg/dl (7-18); BUN/CREATININE RATIO 18.2 (10-20); CALCIUM 8.6 mg/dl (8.5-10.1); CARBON DIOXIDE 25 mmol/L (21-32); CHLORIDE 110 mmol/L (98-107); CREATININE 0.66 mg/dl (0.60-1.20); GLUCOSE 79 mg/dl (70-99); POTASSIUM 3.9 mmol/L (3.5-5.1); SODIUM 143 mmol/L (136-145)
[2017-04-09 14:07] LABS: ALKALINE PHOSPHATASE 95 U/L (45-117); AST/SGOT 10 U/L (15-37)
[2017-04-09] MEDS ORDERED: CAFFEINE CITRATE 500 MG in SODIUM CHLORIDE 0.9% 1000ML 1,000 ML IV ONE (14:15)
--- NOTE | 2017-04-09 14:56 | Anesthesiology Progress Note ---
Anesthesia Progress Note Date of Service Apr 09, 2017. Progress Notes Ms. Araiza presented with what appeared to be a positional headache three days after having an LP in the ER to r/o meningitis. Per ER physician, LP was negative for infection and her lyme titer was negative. Patient described a significant headache that started a day after her LP and was worsened by prolonged sitting and standing. Headache was much improved upon lying supine. She has NKDA and denied being on any blood thinning medications. I spoke at length with patient and she ultimately agreed to have epidural blood patch performed. Risk and benefits were discussed and consent was obtained. IV fluids were running and patient was placed on CV monitors. Patient was placed in sitting position. Midline approach was done at L3-L4. 17G Touhy needle was used , patient was prepped and draped with duraprep. 1ml of 1% lidocaine used for skin analgesia. ERMA to air at 7cm. ER nurse and then primer charging tool setter eventually obtained only 10ml of blood after multiple attempts (sterile technique performed ). All 10ml of blood was slowly injected into epidural space. Patient tolerated well and had no complaints of backpain. Headache had already gone down to a 5/ 10 in intensity in sitting position (was 10/10 beforehand). She was instructed to remain flat for 1 hour after which point she can be discharged per ER physician. She was instructed to have no heavy lifting or straining for several days and to increase her intake of caffeinated beverages. VSS. No complications.
[2017-04-09] MEDS ORDERED: KETOROLAC TROMETHAMINE 30 MG/ML VIAL IV STA (14:57)
[2017-04-09 15:37] VITALS: BP 132/74; PULSE 70; O2SAT 97
[2017-04-16 05:39] LABS: EBV EARLY ANTIGEN AB <9.00 U/ML; EHRLICHIA CHAFF IGG AB <1:64 (<1:64); EHRLICHIA CHAFF IGM AB <1:20 (<1:20); EPSTEIN BARR VIR CAPSID IGG >750.00 U/ML
[2017-06-02] MEDS ORDERED: MECL1TAB40 PO (13:02)
[2017-06-02] MEDS ORDERED: VNTHFA/IN INH (16:26)
== END 2017-04-09 16:01 | disposition home or self-care (01) ==
LOC: C.EDB 12:02 → C.EDA 16:01
DX: G97.1 Other reaction to spinal and lumbar puncture (principal); R51 Headache; M54.9 Dorsalgia, unspecified; M43.6 Torticollis; Z98.51 Tubal ligation status; Z82.5 Family history of asthma and other chronic lower respiratory diseases; Z83.3 Family history of diabetes mellitus; Z82.49 Family history of ischemic heart disease and other diseases of the circulatory system; Z82.0 Family history of epilepsy and other diseases of the nervous system

== ENCOUNTER 2017-04-23 17:19 | Emergency (ER) | payer OTHER ==
[~2017-04-23] VITALS: Ht 170.2 cm; Wt 118.0 kg
[2017-04-23 17:32] VITALS: TEMP 37; Ht 170.2 cm; Wt 118.0 kg
[2017-04-23] MEDS ORDERED: IBUPROFEN 600 MG TAB PO STA (17:51)
[2017-04-23] MEDS ORDERED: ACETAMINOPHEN 500 MG TAB PO STA (17:51)
--- NOTE | 2017-04-23 18:22 | DIAGNOSTIC IMAGING REPORT ---
HEAD WITHOUT CONTRAST (CT) CT DOSE: 537.48 mGy.cm HISTORY: Trauma mval, headache TECHNIQUE: Multiaxial CT images of the head were performed without the use of intravenous contrast. Comparison: 04/06/2017 Findings: The paranasal sinuses and mastoid air cells are clear. The calvarium and skull base are intact. The ventricles and sulci are within normal limits. There is no mass, hematoma, midline shift, or acute infarct. Impression: No acute intracranial abnormality. The above report was generated using voice recognition software. It may contain grammatical, syntax or spelling errors. Electronically signed by: Riley Ghosh M.D. 04/23/2017 6:20 PM Dictated Date/Time: 04/23/2017 6:20 PM
[2017-04-23 18:36] VITALS: BP 129/78; PULSE 92; O2SAT 94
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
[2017-06-02] MEDS ORDERED: MECL1TAB40 PO (13:02)
[2017-06-02] MEDS ORDERED: VNTHFA/IN INH (16:26)
== END 2017-04-23 18:40 | disposition home or self-care (01) ==
LOC: C.EDB 17:21
DX: S16.1XXA Strain of muscle, fascia and tendon at neck level, initial encounter (principal); S06.0X0A Concussion without loss of consciousness, initial encounter; V89.0XXA Person injured in unspecified motor-vehicle accident, nontraffic, initial encounter; Z87.442 Personal history of urinary calculi; Z87.891 Personal history of nicotine dependence; Z87.440 Personal history of urinary (tract) infections; Z90.49 Acquired absence of other specified parts of digestive tract; Z98.51 Tubal ligation status; Z82.5 Family history of asthma and other chronic lower respiratory diseases; Z83.3 Family history of diabetes mellitus; Z80.9 Family history of malignant neoplasm, unspecified; Z82.0 Family history of epilepsy and other diseases of the nervous system; Z82.49 Family history of ischemic heart disease and other diseases of the circulatory system

== ENCOUNTER 2017-04-30 12:35 | Emergency (ER) | payer OTHER ==
[~2017-04-30] VITALS: Ht 170.2 cm; Wt 115.0 kg
[~2017-04-30 12:35] MED LIST changes: -PRLSR20 PO
[2017-04-30 12:46] VITALS: TEMP 36.8; Ht 170.2 cm; Wt 115.0 kg
[2017-04-30] MEDS ORDERED: SULF1TAB92 PO (13:01)
[2017-04-30 13:19] LABS: URINE APPEARANCE CLEAR (CLEAR); URINE BILIRUBIN NEG (NEG); URINE COLOR YELLOW; URINE NITRITE NEG (NEG); URINE PH 7.5 (4.5-7.5); URINE SPECIFIC GRAVITY 1.013 (1.000-1.030); UROBILINOGEN NEG (NEG); ZZUR CULT IF INDIC CLEAN CATCH NO
[2017-04-30 13:20] LABS: MANUAL MICROSCOPIC REQUIRED? NO; REVIEW REQ? NO
[2017-04-30 13:22] LABS: PREG INTERNAL NEGATIVE QC NEG CLEAR BACKGROUND; PREG INTERNAL POSITIVE QC POS CONTROL LINE
[2017-04-30] MEDS ORDERED: SODIUM CHLORIDE 0.9% 1000ML 1,000 ML IV STA (13:22)
[2017-04-30] MEDS ORDERED: ACETAMINOPHEN 325 MG TAB PO STA (13:22)
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
--- NOTE | 2017-04-30 14:41 | DIAGNOSTIC IMAGING REPORT ---
CERVICAL SPINE W/O CLINICAL HISTORY: 26 years-old Female presenting with Fall, questionable LOC, Dizzy, C spine pain/tenderness. TECHNIQUE: Multidetector CT of the cervical spine was performed without the use of intravenous contrast. IV contrast: None. A dose lowering technique was used consistent with the principles of ALARA (as low as reasonably achievable). COMPARISON: Correlation made to MR from 2013. CT DOSE (mGy.cm): The estimated cumulative dose is 996.30 mGy.cm inclusive of the head CT. FINDINGS: Insole Taper topogram: Unremarkable. Slight straightening of normal cervical lordosis. Vertebral bodies maintain normal height and alignment. The vertebral disc spaces preserved. No acute fracture or subluxation. No significant degenerative change. No osseous neural foraminal or spinal canal narrowing. Minimal mucosal thickening in the sphenoid sinus. Paraspinal soft tissues remarkable for numerous prominent cervical lymph nodes bilaterally, possibly reactive. Lung apices clear. IMPRESSION: 1. No acute osseous injury of the cervical spine. 2. Prominent bilateral cervical lymph nodes, possibly reactive. Electronically signed by: Alton Eubanks M.D. 04/30/2017 2:40 PM Dictated Date/Time: 04/30/2017 2:35 PM
[2017-04-30 14:50] VITALS: O2SAT 96
[2017-04-30 15:38] LABS: BASO % 0.2 %; BASO ABS # 0.03 K/uL (0-0.2); COMPLETE YES; EOS % 1.3 %; HEMATOCRIT 40.4 % (37-47); IG% 0.3 %; LYMPH % 24.1 %; LYMPH ABS # 3.27 K/uL (1.2-3.4); MEAN CELL VOLUME 87.3 fL (80-100); MEAN CORPUSCULAR HEMOGLOBIN 27.6 pg (25-34); MEAN CORPUSCULAR HGB CONC 31.7 g/dl (32-36); MEAN PLATELET VOLUME 10.4 fL (7.4-10.4); MONO % 6.9 %; NEUT % 67.2 %; PLATELET COUNT 347 K/uL (130-400); RED BLOOD COUNT 4.63 M/uL (4.2-5.4); WHITE BLOOD COUNT 13.55 K/uL (4.8-10.8)
[2017-04-30 15:54] LABS: BUN/CREATININE RATIO 16.6 (10-20); CALCIUM 8.6 mg/dl (8.5-10.1); CREATININE 0.7 mg/dl (0.60-1.20); MAGNESIUM 2.1 mg/dl (1.8-2.4); POTASSIUM 3.5 mmol/L (3.5-5.1)
[2017-04-30 15:57] LABS: ALB/GLOB RATIO 0.9 (0.9-2)
[2017-04-30 16:59] VITALS: BP 101/73; PULSE 68; O2SAT 100
[2017-06-02] MEDS ORDERED: MECL1TAB40 PO (13:02)
[2017-06-02] MEDS ORDERED: VNTHFA/IN INH (16:26)
== END 2017-04-30 17:00 | disposition home or self-care (01) ==
LOC: EDBD 12:35 → C.EDC 12:37
DX: R51 Headache (principal); S06.0X0A Concussion without loss of consciousness, initial encounter; W22.8XXA Striking against or struck by other objects, initial encounter; R42 Dizziness and giddiness; F17.200 Nicotine dependence, unspecified, uncomplicated; Z87.440 Personal history of urinary (tract) infections; Z87.442 Personal history of urinary calculi; Z86.19 Personal history of other infectious and parasitic diseases; Z90.49 Acquired absence of other specified parts of digestive tract; Z98.51 Tubal ligation status; Z83.3 Family history of diabetes mellitus; Z80.9 Family history of malignant neoplasm, unspecified; Z82.49 Family history of ischemic heart disease and other diseases of the circulatory system; Z82.0 Family history of epilepsy and other diseases of the nervous system

== ENCOUNTER 2017-06-02 18:13 | Emergency (ER) | payer OTHER ==
[~2017-06-02] VITALS: Ht 170.2 cm; Wt 114.0 kg
[~2017-06-02 18:13] MED LIST changes: +MECL1TAB40 PO; +SULF1TAB92 PO; +VNTHFA/IN INH
[2017-06-02 18:33] VITALS: TEMP 36.8; Ht 170.2 cm; Wt 114.0 kg
[2017-06-02] MEDS ORDERED: ACETAMINOPHEN 500 MG TAB PO STA (18:49)
[2017-06-02] MEDS ORDERED: ONDANSETRON 4MG OD TAB PO STA (18:49)
[2017-06-02] MEDS ORDERED: IBUP-103 PO (19:07)
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
[2017-06-02] MEDS ORDERED: CLIN1LOT TOP (19:44)
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
[2017-06-02] MEDS ORDERED: TRAM-10 PO (20:49)
[2017-06-02] MEDS ORDERED: ONDA4TAB10 SL (20:49)
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
[2017-06-02] MEDS ORDERED: TRAMADOL HCL 50 MG HOME PACK PO ONE (21:00)
[2017-06-02] MEDS ORDERED: ONDANSETRON HOME PACK 4MG OD TAB PO ONE (21:00)
[2017-06-02 21:23] VITALS: BP 119/85; PULSE 90; O2SAT 97
== END 2017-06-02 21:25 | disposition home or self-care (01) ==
LOC: C.EDB 18:14 → C.EDD 21:25
DX: S09.90XA Unspecified injury of head, initial encounter (principal); S16.1XXA Strain of muscle, fascia and tendon at neck level, initial encounter; S80.12XA Contusion of left lower leg, initial encounter; V87.7XXA Person injured in collision between other specified motor vehicles (traffic), initial encounter; Z82.0 Family history of epilepsy and other diseases of the nervous system; Z82.49 Family history of ischemic heart disease and other diseases of the circulatory system; Z83.3 Family history of diabetes mellitus; Z82.5 Family history of asthma and other chronic lower respiratory diseases

== ENCOUNTER 2017-06-21 19:58 | Emergency (ER) | payer OTHER ==
[~2017-06-21] VITALS: Ht 170.2 cm; Wt 117.4 kg
[~2017-06-21 19:58] MED LIST changes: +CLIN1LOT TOP; +IBUP-103 PO; -IBUP-1428 PO; +ONDA4TAB10 SL; -SULF1TAB92 PO; +TRAM-10 PO
[2017-06-21 20:05] VITALS: TEMP 36.4; Ht 170.2 cm; Wt 117.4 kg
[2017-06-21] MEDS ORDERED: TRAM-10 PO (20:12)
[2017-06-21] MEDS ORDERED: ACETAMINOPHEN 500 MG TAB PO STA (20:17)
--- NOTE | 2017-06-21 20:40 | DIAGNOSTIC IMAGING REPORT ---
RIGHT ANKLE MIN 3 VIEWS ROUTINE CLINICAL HISTORY: Right ankle pain. Swelling. COMPARISON: None. DISCUSSION: No acute fractures or dislocations are visualized. There is a small plantar calcaneal spur. There is accessory ossicle posterior to the talus. There is mild lateral soft tissue swelling. IMPRESSION: No fractures or subluxations identified. Electronically signed by: Jovan Mckay M.D. 06/21/2017 8:39 PM Dictated Date/Time: 06/21/2017 8:38 PM
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
[2017-06-21 21:17] VITALS: BP 135/85; PULSE 66; O2SAT 98
== END 2017-06-21 21:18 | disposition home or self-care (01) ==
LOC: C.EDB 19:59 → C.EDD 21:18
DX: S93.401A Sprain of unspecified ligament of right ankle, initial encounter (principal); X50.1XXA Overexertion from prolonged static or awkward postures, initial encounter; Z87.440 Personal history of urinary (tract) infections; Z72.0 Tobacco use; Z90.49 Acquired absence of other specified parts of digestive tract; Z98.51 Tubal ligation status

== ENCOUNTER 2017-10-02 18:08 | Emergency (ER) | payer OTHER ==
[~2017-10-02] VITALS: Ht 170.2 cm; Wt 120.1 kg
[~2017-10-02 18:08] MED LIST changes: -CLIN1LOT TOP; -IBUP-103 PO; -MECL1TAB40 PO; -ONDA4TAB10 SL; -VNTHFA/IN INH
[2017-10-02 18:11] VITALS: TEMP 36.3; Ht 170.2 cm; Wt 120.1 kg
[2017-10-02] MEDS ORDERED: OPTIRAY 320 IV PRN (18:45)
[2017-10-02 20:01] LABS: ISTAT CREATININE 0.6 mg/dl (0.6-1.3); ISTAT IONIZED CALCIUM 1.21 mmol/l (1.12-1.32); ISTAT POTASSIUM 3.9 mEq/L (3.3-5.0)
--- NOTE | 2017-10-02 20:14 | DIAGNOSTIC IMAGING REPORT ---
SOFT TISSUE NECK WITH CLINICAL HISTORY: 27 years-old Female presenting with painful swallowing; feels like something in back of throat. TECHNIQUE: Multidetector CT of the neck was performed after the administration of intravenous contrast. IV contrast: 94 mL of Optiray 320. A dose lowering technique was used consistent with the principles of ALARA (as low as reasonably achievable). COMPARISON: CT cervical spine from 06/02/2017. CT DOSE (mGy.cm): The estimated cumulative dose is 876.65 mGy.cm. FINDINGS: Bull Ladle Tender topogram: Unremarkable. No infiltration of the superficial or deep fat planes of the face or neck. No displacement of the parapharyngeal fat. Paranasal sinuses and mastoid air cells clear in the visualized portion. Orbits grossly normal. No suspicious nodular enhancement in the airway. No effacement of the valleculae or piriform sinuses. Normal thyroid. Three-vessel aortic arch with patent branch vessels. Venous structures patent. No lymphadenopathy. Cervical spine within normal limits. Lung apices clear. Limited intracranial evaluation within normal limits. IMPRESSION: No CT abnormality of the neck. Electronically signed by: Alton Eubanks M.D. 10/02/2017 8:12 PM Dictated Date/Time: 10/02/2017 8:07 PM
[2017-10-02 20:39] VITALS: BP 138/89; PULSE 82; O2SAT 100
--- NOTE | 2017-10-03 21:55 | EMERGENCY ROOM VISIT NOTE ---
ED Visit Note First contact with patient: 18:15 Chief Complaint: Throat pain. History of Present Illness: Ms. Araiza is a 27-year-old white female who ambulates into the ED complaining of throat pain. Patient reports yesterday she developed throat pain. She reports initially it was mild and has gradually increased in intensity. She describes her pain as a sharp sensation when swallowing liquids or food. She rates her discomfort 7/10. She reports she feels like there is a foreign body in the back of her throat "like polyps." She has not identified any alleviating factors related to her discomfort. She has not taken any medication for discomfort prior to arrival at the hospital. She denies any associated symptoms including fevers, chills, sweats, skin eruptions, skin color changes, headache, sinus drainage, voice changes, painful talking, drooling, recent choking episodes, neck pain/stiffness, cough, wheezing, shortness of breath. Review of Systems: As noted above in history of present illness. Past Medical History: Asthma, kidney stones, status post section, unspecified laparoscopy, endoscopy, cholecystectomy and tubal ligation. Current Medications: Medications Dose Route/Sig Max Daily Dose Days Date Category Dose Instructions Elavil (Amitriptyline Hcl) 25 Mg Tab 50 Mg PO HS 10/02/17 Reported Zyrtec (Cetirizine Hcl) 10 Mg Tab 10 Mg PO DAILY 10/02/17 Reported Mag-Ox (Magnesium Oxide) 400 Mg Tab 400 Mg PO HS 10/02/17 Reported B-2-400 (Riboflavin) 400 Mg Cap 400 Mg PO DAILY 10/02/17 Reported Flonase Allergy Relief (Fluticasone Propionate (Nasal)) 50 Mcg/Act Spr 2 Sprays JACKELIN DAILY 10/02/17 Reported Celexa (Citalopram Hydrobromide) 20 Mg Tab 20 Mg PO DAILY 10/02/17 Reported Clinoril (Sulindac) 200 Mg Tab 200 Mg PO BIDM 10/02/17 Reported Advil (Ibuprofen) 200 Mg Tab 600-800 Mg PO Q8 PRN 06/02/17 Reported Ventolin Hfa (Albuterol) 200 Puffs/61809 Mcg Aers 2 Puffs INH Q6H PRN 12/09/16 Reported Cleocin-T (Clindamycin Phosphate (Topical) 1 % Lot 1 Appln [facility] HS 10/19/16 Reported APPLY TO AFFECTED AREA(S) OF SKIN Allergies to Medications: Latex Social History: Patient is not employed; she feels safe in her home environment ; she denies tobacco use and admits to alcohol use. Physical Examination: Vital Signs: Date Time Temp Pulse Resp B/P (MAP) Pulse Ox O2 Delivery O2 Flow Rate FiO2 10/02/17 20:39 82 18 138/89 100 10/02/17 20:11 81 18 121/82 100 Room Air 10/02/17 18:22 99 Room Air 10/02/17 18:11 36.3 83 16 120/82 99 GENERAL: 27-year-old female in no acute distress, nontoxic-appearing, afebrile and hemodynamically stable. NEUROLOGICAL: Awake, alert and oriented to person, place and time. Answering questions appropriately and following commands. Normal gait. Good hand eye coordination. SKIN: Warm, dry and pink. No soft tissue eruptions or trauma noted. HEENT: Atraumatic and normocephalic. No drainage from naris. Oral cavity moist and pink. Airway patent. Uvula is midline and no abscesses are seen. No foreign bodies were noted into the posterior pharyngeal area to the top of the epiglottis. Pharynx is nonerythematous or edematous. No tonsillar hypertrophy or exudates. Speech normal. No auditory or auscultatory stridor. No lymphadenopathy. No laryngeal tenderness. Trachea midline. No jugular venous distention. THORAX: Lungs sounds are clear to auscultation and equal bilaterally with symmetrical chest wall. ED Course: Patient is assessed as noted above. Laboratory Testing: Test 10/02/17 19:47 Range/Units Bedside Hemoglobin 12.9 12.0-16.0 g/dl Bedside Hematocrit 38 37-47 % Bedside Sodium 140 135-144 mEq/L Bedside Potassium 3.9 3.3-5.0 mEq/L Bedside Chloride 102 101-112 mEq/L Bedside Total CO2 27 24-31 mEq/l Anion Gap 16.0 16-25 mmol/L Bedside Blood Urea Nitrogen 18 7-18 mg/dl Bedside Creatinine 0.6 0.6-1.3 mg/dl Bedside Glucose (other) 87 70-99 mg/dl Bedside Ionized Calcium (Maida) 1.21 1.12-1.32 mmol/l Soft Tissue Neck CT: Was reviewed by myself and read by the radiologist showing no CT abnormality of the neck. Patient's case was reviewed with Dr. Garcia; we agreed on diagnostic approach, treatment, disposition and plan. Patient was educated about today's findings and instructed on her treatment plan ; she verbalizes understanding and agreement with this plan. Clinical Impression: Throat pain. Decision-Making: Initially my differential diagnosis I considered neck abscess, neck growth, foreign body, epiglottitis and other causes. Disposition: Patient discharged home in stable condition accompanied by her and children; prior to departure she was reassessed and subjectively reported she was feeling better and rated her discomfort 5/10. Plan: Patient was encouraged to alternate ibuprofen and acetaminophen every 3 hours for persistent pain per Patient was encouraged to use a liquid or mechanical soft diet until resolution of throat discomfort. Patient was encouraged to follow-up with her PNP or ENT specialist. Patient was encouraged return ED for worsening/uncontrolled pain, fevers, inability to swallow or any new/concerning symptoms.
[2017-10-04] MEDS ORDERED: VNTHFA/IN INH (16:26)
[2017-10-07] MEDS ORDERED: MELO-83 PO (15:36)
[2017-10-09] MEDS ORDERED: LEVE500T13 PO (14:09)
[2018-03-25] MEDS ORDERED: LEVE750T PO (18:21)
[2018-03-25] MEDS ORDERED: CHOL1000 PO (18:23)
[2018-03-25] MEDS ORDERED: LEVE250T PO (20:28)
== END 2017-10-02 20:39 | disposition home or self-care (01) ==
LOC: C.EDB 18:09 → C.EDC 20:39
DX: R07.0 Pain in throat (principal); J45.909 Unspecified asthma, uncomplicated

== ENCOUNTER 2017-10-04 17:07 | Emergency (ER) | payer OTHER ==
[~2017-10-04] VITALS: Ht 170.2 cm; Wt 122.7 kg
[~2017-10-04 17:07] MED LIST changes: -TRAM-10 PO; +VNTHFA/IN INH
[2017-10-04 17:17] VITALS: Ht 170.2 cm; Wt 122.7 kg
[2017-10-04] MEDS ORDERED: SODIUM CHLORIDE 0.9% 1000ML 1,000 ML IV STA (17:17)
[2017-10-04 17:30] VITALS: O2SAT 98
[2017-10-04 17:53] LABS: BASO % 0.3 %; BASO ABS # 0.04 K/uL (0-0.2); EOS % 1.7 %; HEMATOCRIT 40.4 % (37-47); HEMOGLOBIN 13.6 g/dL (12.0-16.0); IG# 0.08 K/uL (0.00-0.02); LYMPH % 19.4 %; MEAN CELL VOLUME 86.3 fL (80-100); MEAN CORPUSCULAR HEMOGLOBIN 29.1 pg (25-34); MEAN CORPUSCULAR HGB CONC 33.7 g/dl (32-36); MEAN PLATELET VOLUME 10.5 fL (7.4-10.4); MONO % 6.9 %; MONO ABS # 0.82 K/uL (0.11-0.59); NEUT ABS # 8.39 K/uL (1.4-6.5); PLATELET COUNT 349 K/uL (130-400); RED CELL DISTRIBUTION WIDTH CV 13.4 % (11.5-14.5); RED CELL DISTRIBUTION WIDTH SD 42.1 fL (36.4-46.3); WHITE BLOOD COUNT 11.83 K/uL (4.8-10.8)
[2017-10-04 18:02] LABS: PTT PATIENT 29.4 SECONDS (21.0-31.0)
[2017-10-04 18:14] LABS: ALBUMIN 3.6 gm/dl (3.4-5.0); ALT/SGPT 27 U/L (12-78); AST/SGOT 21 U/L (15-37); BLOOD UREA NITROGEN 16 mg/dl (7-18); CALCIUM 8.5 mg/dl (8.5-10.1); CARBON DIOXIDE 28 mmol/L (21-32); CREATININE 0.64 mg/dl (0.60-1.20); GLUCOSE 72 mg/dl (70-99); POTASSIUM 3.4 mmol/L (3.5-5.1); SODIUM 138 mmol/L (136-145)
--- NOTE | 2017-10-04 18:18 | DIAGNOSTIC IMAGING REPORT ---
HEAD WITHOUT CONTRAST (CT) CLINICAL HISTORY: 27 years-old Female presenting with fall hit head. TECHNIQUE: Multidetector CT imaging of the head was performed without the use of intravenous contrast. IV contrast: None. A dose lowering technique was used consistent with the principles of ALARA (as low as reasonably achievable). COMPARISON: 06/02/2017. CT DOSE (mGy.cm): The estimated cumulative dose is 1085.[address] cervical spine. FINDINGS: Corporate Consultant topogram: Unremarkable. Ventricles and sulci normal in size. Brain parenchyma normal in appearance with preserved wallace-white differentiation. No mass effect or midline shift. No hemorrhage or acute territorial infarct. No extra-axial fluid collection. Paranasal sinuses and mastoid air cells clear. Calvarium intact. IMPRESSION: 1. No acute intracranial abnormality. Electronically signed by: Alton Eubanks M.D. 10/04/2017 6:17 PM Dictated Date/Time: 10/04/2017 6:15 PM
--- NOTE | 2017-10-04 18:22 | DIAGNOSTIC IMAGING REPORT ---
CERVICAL SPINE W/O CLINICAL HISTORY: 27 years-old Female presenting with fall hit head, syncope. TECHNIQUE: Multidetector CT of the cervical spine was performed without the use of intravenous contrast. IV contrast: None. A dose lowering technique was used consistent with the principles of ALARA (as low as reasonably achievable). COMPARISON: CTA neck from 10/02/2017. CT DOSE (mGy.cm): The estimated cumulative dose is 1085.94 mGy.cm. FINDINGS: Farmworker Fruit topogram: Unremarkable. Straightening of normal cervical lordosis likely positional. No degenerative change. No acute fracture or subluxation. Paraspinal soft tissues within normal limits. Bilaterally symmetric prominent cervical lymph nodes may be reactive. Mild prominence of the tonsillar adenoidal tissue. Minimal aerated secretions in the sphenoid sinus. IMPRESSION: 1. No acute osseous injury of the cervical spine. 2. Possible reactive hyperplasia of the tonsillar lymphoid tissue and bilateral cervical lymph nodes. 3. Minimal aerated secretions in the sphenoid sinus. Correlate clinically to exclude acute sinusitis. Electronically signed by: Alton Eubanks M.D. 10/04/2017 6:20 PM Dictated Date/Time: 10/04/2017 6:17 PM
[2017-10-04 18:25] LABS: ALKALINE PHOSPHATASE 114 U/L (45-117); TOTAL PROTEIN 7.7 gm/dl (6.4-8.2)
[2017-10-04] MEDS ORDERED: MAGN400T6 PO (18:45)
[2017-10-04] MEDS ORDERED: CITA20TA9 PO (18:45)
[2017-10-04] MEDS ORDERED: FLUT0.15 NAE (18:45)
[2017-10-04] MEDS ORDERED: RIBOCAP PO (18:45)
[2017-10-04] MEDS ORDERED: SULI200T4 PO (18:45)
[2017-10-04] MEDS ORDERED: AMIT25TA9 PO (18:47)
[2017-10-04] MEDS ORDERED: CETI10TA10 PO (18:47)
--- NOTE | 2017-10-04 19:03 | DIAGNOSTIC IMAGING REPORT ---
CHEST ONE VIEW PORTABLE CLINICAL HISTORY: 27 years-old Female presenting with EVALUATE ALTERED MENTAL STATUS/WEAKNESS. TECHNIQUE: Portable upright AP view of the chest was obtained. COMPARISON: 04/06/2017. FINDINGS: Cardiomediastinal silhouette normal. Lungs and pleural spaces clear. Osseous structures normal. Upper abdomen normal. IMPRESSION: 1. No acute cardiopulmonary disease. Electronically signed by: Alton Eubanks M.D. 10/04/2017 7:02 PM Dictated Date/Time: 10/04/2017 7:02 PM
[2017-10-04] MEDS ORDERED: IBUP-103 PO (19:07)
[2017-10-04] MEDS ORDERED: PENI-82 PO (19:13)
[2017-10-04] MEDS ORDERED: PENICILLIN V POTASSIUM 250 MG TAB PO ONE (19:15)
[2017-10-04 19:26] VITALS: BP 183/93; PULSE 78; TEMP 36.6; O2SAT 99
[2017-10-04] MEDS ORDERED: CLIN1LOT TOP (19:44)
--- NOTE | 2017-10-04 20:44 | EMERGENCY ROOM VISIT NOTE ---
History Report prepared by Sharon: Gisselle Gomes Under the Supervision of: Dr. Del Vasquez D.O. First contact with patient: 17:10 Stated Complaint: SYNCOPE, FALL History of Present Illness The patient is a 27 year old female who presents to the Emergency Room with complaints of a resolved syncopal episode that occurred earlier today. The patient states that she was doing the dishes, when she became light headed and warm, lost consciousness, and fell. The patient notes she had some sharp chest pain last night. She notes that she has been able to eat solid food due to severe pain in her throat. The patient denies feeling like food gets stuck in her throat. She notes she was seen in the Emergency Department 2 days ago and was put on a liquid diet as her throat has been bothering her. She has been eating soups and soft foods. Pt denies headache, change in vision, fevers, shortness of breath, nausea, vomiting, diarrhea, pain with urination, and melena. Patient denies diabetes, hypertension, hyperlipidemia, CAD, history of sudden at a young age. Patient denies swelling of calves, recent trips, history of immobilization or recent surgery, prior history of DVT, hemoptysis, history of malignancy, history of smoking. Source of History: patient Onset: earlier today Position: other (global) Quality: other Timing: other (persistent) Associated Symptoms: + chest pain Review of Systems See HPI for pertinent positives & negatives. A total of 10 systems reviewed and were otherwise negative. Past Medical & Surgical Medical Problems: (1) Abdominal pain (2) Abdominal pain (3) Abdominal pain (4) Abdominal pain in (5) Abdominal pain in (6) Arm paresthesia, left (7) Headache (8) Kidney stone (9) Lyme disease (10) Nausea With Vomiting (11) Paresthesia and pain of both upper extremities (12) Paresthesia and pain of both upper extremities (13) Paresthesia of left arm (14) Sinusitis (15) Tobacco Use Disorder (16) Urinary tract infection (17) Urinary tract infection (18) Weakness Surgical Problems: (1) Cholecystectomy (2) Tubal ligation status Family History Asthma Diabetes mellitus FH: cancer Hypertension Seizures Social History Smoking Status: Never Smoker Alcohol Use: occasionally Drug Use: none Marital Status: in relationship Housing Status: lives with family Occupation Status: unemployed Current/Historical Medications Scheduled Amitriptyline Hcl ([facility]), 50 MG PO HS Cetirizine Hcl (Zyrtec), 10 MG PO DAILY Citalopram Hydrobromide (Celexa), 20 MG PO DAILY Clindamycin Phosphate (Topical (Cleocin-T), 1 APPLN TOP HS Fluticasone Propionate (Nasal) (Flonase Allergy Relief), 2 SPRAYS JACKELIN DAILY Magnesium Oxide (Mag-Ox), 400 MG PO HS Penicillin V Potassium (Veetids), 500 MG PO TID Riboflavin (B-2-400), 400 MG PO DAILY Sulindac (Clinoril), 200 MG PO BIDM Scheduled PRN Albuterol Hfa (Ventolin Hfa), 2 PUFFS INH Q6H PRN for SOB/Wheezing Ibuprofen Tab (Advil), 600-800 MG PO Q8 PRN for Pain Allergies Coded Allergies: Latex (Verified Allergy, Mild, RASH, 06/21/17) Physical Exam Vital Signs Date Time Temp Pulse Resp B/P (MAP) Pulse Ox O2 Delivery O2 Flow Rate FiO2 10/04/17 19:26 36.6 78 20 183/93 99 10/04/17 19:11 78 20 183/93 99 Room Air 10/04/17 18:00 79 18 147/85 84 148/92 96 140/100 10/04/17 17:30 98 Room Air 10/04/17 17:17 36.6 88 18 157/91 95 Room Air Physical Exam GENERAL: disheveled, well nourished, no distress, non-toxic HEAD: normal cephalic, atraumatic EYE EXAM: normal conjunctiva, PERRL and EOM's grossly intact OROPHARYNX: no exudate, no erythema, lips, buccal mucosa, and tongue normal and mucous membranes are moist EARS: TMs clear b/l NECK: Cervical collar in place, faint tenderness in cervical region. Supple, no nuchal rigidity, no adenopathy, non-tender CHEST: stable to compression anteriorly and posteriorly LUNGS: clear to auscultation. Normal chest wall mechanics HEART: no murmurs, S1 normal and S2 normal ABDOMEN: abdomen soft, non-tender, normo-active bowel sounds, no masses, no rebound or guarding. PELVIS: stable to compression anteriorly and posteriorly BACK: Back is symmetrical on inspection and there is no deformity, no midline tenderness, no CVA tenderness. UPPER EXTREMITIES: full active and passive range of motion of all joints without tenderness to palpation LOWER EXTREMITIES: full active and passive range of motion of all joints without tenderness to palpation NEURO EXAM: Normal sensorium, cranial nerves II-XII grossly intact, normal speech, no gross weakness of arms, no gross weakness of legs. GCS: 15. Medical Decision & Procedures ER Provider Diagnostic Interpretation: Radiology results as stated below per my review and the radiologist's interpretation: CERVICAL SPINE W/O CLINICAL HISTORY: 27 years-old Female presenting with fall hit head, syncope. TECHNIQUE: Multidetector CT of the cervical spine was performed without the use of intravenous contrast. IV contrast: None. A dose lowering technique was used consistent with the principles of ALARA (as low as reasonably achievable). COMPARISON: CTA neck from 10/02/2017. CT DOSE (mGy.cm): The estimated cumulative dose is 1085.94 mGy.cm. FINDINGS: Professor Of Oceanography topogram: Unremarkable. Straightening of normal cervical lordosis likely positional. No degenerative change. No acute fracture or subluxation. Paraspinal soft tissues within normal limits. Bilaterally symmetric prominent cervical lymph nodes may be reactive. Mild prominence of the tonsillar adenoidal tissue. Minimal aerated secretions in the sphenoid sinus. IMPRESSION: 1. No acute osseous injury of the cervical spine. 2. Possible reactive hyperplasia of the tonsillar lymphoid tissue and bilateral cervical lymph nodes. 3. Minimal aerated secretions in the sphenoid sinus. Correlate clinically to exclude acute sinusitis. Electronically signed by: Alton Eubanks M.D. 10/04/2017 6:20 PM Dictated Date/Time: 10/04/2017 6:17 PM HEAD WITHOUT CONTRAST (CT) CLINICAL HISTORY: 27 years-old Female presenting with fall hit head. TECHNIQUE: Multidetector CT imaging of the head was performed without the use of intravenous contrast. IV contrast: None. A dose lowering technique was used consistent with the principles of ALARA (as low as reasonably achievable). COMPARISON: 06/02/2017. CT DOSE (mGy.cm): The estimated cumulative dose is 1085.[address] cervical spine. FINDINGS: Professor Of Oceanography topogram: Unremarkable. Ventricles and sulci normal in size. Brain parenchyma normal in appearance with preserved wallace-white differentiation. No mass effect or midline shift. No hemorrhage or acute territorial infarct. No extra-axial fluid collection. Paranasal sinuses and mastoid air cells clear. Calvarium intact. IMPRESSION: 1. No acute intracranial abnormality. Electronically signed by: Alton Eubanks M.D. 10/04/2017 6:17 PM Dictated Date/Time: 10/04/2017 6:15 PM CHEST ONE VIEW PORTABLE CLINICAL HISTORY: 27 years-old Female presenting with EVALUATE ALTERED MENTAL STATUS/WEAKNESS. TECHNIQUE: Portable upright AP view of the chest was obtained. COMPARISON: 04/06/2017. FINDINGS: Cardiomediastinal silhouette normal. Lungs and pleural spaces clear. Osseous structures normal. Upper abdomen normal. IMPRESSION: 1. No acute cardiopulmonary disease. Electronically signed by: Alton Eubanks M.D. 10/04/2017 7:02 PM Dictated Date/Time: 10/04/2017 7:02 PM Laboratory Results 10/04/17 17:35 Red Blood Count 4.68, Mean Corpuscular Volume 86.3, Mean Corpuscular Hemoglobin 29.1, Mean Corpuscular Hemoglobin Concent 33.7, Mean Platelet Volume 10.5, Neutrophils (%) (Auto) 71.0, Lymphocytes (%) (Auto) 19.4, Monocytes (%) (Auto) 6.9, Eosinophils (%) (Auto) 1.7, Basophils (%) (Auto) 0.3, Neutrophils # (Auto) 8.39, Lymphocytes # (Auto) 2.30, Monocytes # (Auto) 0.82, Eosinophils # (Auto) 0.20, Basophils # (Auto) 0.04 10/04/17 17:35 Test 10/04/17 17:31 10/04/17 17:35 Urine Color YELLOW Urine Appearance CLEAR (CLEAR) Urine pH 6.0 (4.5-7.5) Urine Specific [place] 1.008 (1.000-1.030) Urine Protein NEG (NEG) Urine Glucose (UA) NEG (NEG) Urine Ketones NEG (NEG) Urine Occult Blood NEG (NEG) Urine Nitrite NEG (NEG) Urine Bilirubin NEG (NEG) Urine Urobilinogen NEG (NEG) Urine Leukocyte Esterase NEG (NEG) White Blood Count 11.83 K/uL (4.8-10.8) Red Blood Count 4.68 M/uL (4.2-5.4) Hemoglobin 13.6 g/dL (12.0-16.0) Hematocrit 40.4 % (37-47) Mean Corpuscular Volume 86.3 fL (80-100) Mean Corpuscular Hemoglobin 29.1 pg (25-34) Mean Corpuscular Hemoglobin Concent 33.7 g/dl (32-36) Platelet Count 349 K/uL (130-400) Mean Platelet Volume 10.5 fL (7.4-10.4) Neutrophils (%) (Auto) 71.0 % Lymphocytes (%) (Auto) 19.4 % Monocytes (%) (Auto) 6.9 % Eosinophils (%) (Auto) 1.7 % Basophils (%) (Auto) 0.3 % Neutrophils # (Auto) 8.39 K/uL (1.4-6.5) Lymphocytes # (Auto) 2.30 K/uL (1.2-3.4) Monocytes # (Auto) 0.82 K/uL (0.11-0.59) Eosinophils # (Auto) 0.20 K/uL (0-0.5) Basophils # (Auto) 0.04 K/uL (0-0.2) RDW Standard Deviation 42.1 fL (36.4-46.3) RDW Coefficient of Variation 13.4 % (11.5-14.5) Immature Granulocyte % (Auto) 0.7 % Immature Granulocyte # (Auto) 0.08 K/uL (0.00-0.02) Activated Partial Thromboplast Time 29.4 SECONDS (21.0-31.0) Partial Thromboplastin Ratio 1.1 D-Dimer < 190 ug/L FEU (0-500) Anion Gap 6.0 mmol/L (3-11) Est Creatinine Clear Calc Drug Dose 181.0 ml/min Estimated GFR () 142.7 Estimated GFR (Non- 123.2 BUN/Creatinine Ratio 24.2 (10-20) Calcium Level 8.5 mg/dl (8.5-10.1) Total Bilirubin 0.2 mg/dl (0.2-1) Direct Bilirubin < 0.1 mg/dl (0-0.2) Aspartate Amino Transf (AST/SGOT) 21 U/L (15-37) Alanine Aminotransferase (ALT/SGPT) 27 U/L (12-78) Alkaline Phosphatase 114 U/L (45-117) Troponin I < 0.015 ng/ml (0-0.045) Total Protein 7.7 gm/dl (6.4-8.2) Albumin 3.6 gm/dl (3.4-5.0) Thyroid Stimulating Hormone (TSH) 1.550 uIu/ml (0.300-4.500) Laboratory results per my review. Medications Administered Medications (Trade) Dose Ordered Sig/Bjorn Route Start Time Stop Time Status Last Admin Dose Admin Sodium Chloride 1,000 ml @ 999 mls/hr Q1H1M STAT IV 10/04/17 17:17 10/04/17 18:17 DC 10/04/17 17:17 999 MLS/HR Penicillin V Potassium (Veetids Tab) 500 mg NOW ONCE PO 10/04/17 19:15 10/04/17 19:16 DC 10/04/17 19:26 500 MG ECG Indication: syncope Rate (beats per minute): 80 Rhythm: sinus rhythm Findings: RBBB, other (normal axis) ED Course ED COURSE: Vital signs were reviewed and showed normal vitals. The patients medical record was reviewed The above diagnostic studies were performed and reviewed. ED treatments and interventions as stated above. 1712: The patient was evaluated in room B8. A complete history and physical examination was performed. 7: Ordered Sodium Chloride 1000ml @ 999mls/hr IV. 1914: Ordered Penicillin V Potassium 500mg PO. 1953: Upon reevaluation, the patient is resting comfortably.I discussed my findings with the patient and she understands and agrees with the treatment plan. She was discharged home. Medical Decision Differential diagnosis: Etiologies such as vasovagal event, infection, hypoglycemia, electrolyte abnormalities, cardiac sources, intracerebral event, toxicologic, neurologic, as well as others were entertained. The patient is a 27 year old female who presents to the ED with complaints of syncopal episode. Patient has not been eating and drinking much secondary to her sore throat which she was seen here yesterday. Should the CT which was negative. She notes that she was washing dishes and became very warm and flushed. At this time she passed out. She has no cardiac history or sniffing risk factors for PEs. CBC all BMP, LFTs, bilirubin, troponin and TSH were normal. D-dimer was negative. UA was negative. She has absolutely no abdominal pain. EKG was unremarkable. CT head and cervical spine was negative but did show some fullness in the posterior pharyngeal area. Based on this she was given short prescription of antibiotics. Chest x-ray was unremarkable. Patient was feeling significantly better. She was updated bedside. She was discharged follow-up with PCP. Discussed with Pt concerning signs and symptoms to watch out for. Pt was instructed to follow up with their PCP and discussed with the patient their option to return to the ED at anytime for persistent or worsening symptoms. The appropriate anticipatory guidance and out-patient management, including indications for return to the emergency department, were explained at length to the patient and understood. Medication Reconcilliation Current Medication List: was personally reviewed by me Impression Primary Impression: Syncope Scribe Attestation The scribe's documentation has been prepared under my direction and personally reviewed by me in its entirety. I confirm that the note above accurately reflects all work, treatment, procedures, and medical decision making performed by me. Departure Information Dispostion Home / Self-Care Prescriptions Penicillin V Potassium (Veetids) 500 Mg Tab 500 MG PO TID, #21 TAB Prov: Del Vasquez, DO 10/04/17 Referrals Jose Garcia M.D. (PCP) Forms HOME CARE DOCUMENTATION FORM, IMPORTANT VISIT INFORMATION Additional Instructions Please follow up with your primary care doctor with in the next 24 hours. Any worsening of your symptoms, please return to the ED immediately. This includes any fevers greater than 100.4, worsening pain, chest pain, shortness breath, persistent nausea, vomiting, unable to eat or drink, or any other concerning signs or symptoms from your standpoint. No driving for the next 24 hours. Please take antibiotics as prescribed. Problem Qualifiers Primary Impression: Syncope Syncope type: unspecified Qualified Codes: R55 - Syncope and collapse
[2017-10-07] MEDS ORDERED: MELO-83 PO (15:36)
[2017-10-09] MEDS ORDERED: LEVE500T13 PO (14:09)
[2018-03-25] MEDS ORDERED: LEVE750T PO (18:21)
[2018-03-25] MEDS ORDERED: CHOL1000 PO (18:23)
[2018-03-25] MEDS ORDERED: LEVE250T PO (20:28)
== END 2017-10-04 19:27 | disposition home or self-care (01) ==
LOC: EDBD 17:07 → C.EDB 17:08
DX: R55 Syncope and collapse (principal); Z82.5 Family history of asthma and other chronic lower respiratory diseases; Z83.3 Family history of diabetes mellitus; Z82.49 Family history of ischemic heart disease and other diseases of the circulatory system; Z82.0 Family history of epilepsy and other diseases of the nervous system

== ENCOUNTER 2017-10-07 11:15 | Observation (INO) | payer OTHER ==
[~2017-10-07] VITALS: Ht 170.2 cm; Wt 119.0 kg
[~2017-10-07 11:15] MED LIST changes: +AMIT25TA9 PO; +CETI10TA10 PO; +CITA20TA9 PO; +CLIN1LOT TOP; +FLUT0.15 NAE; +IBUP-103 PO; +MAGN400T6 PO; +PENI-82 PO; +RIBOCAP PO; +SULI200T4 PO
[2017-10-07] MEDS ORDERED: SODIUM CHLORIDE 0.9% 1000ML 1,000 ML IV STA (12:25)
--- NOTE | 2017-10-07 12:44 | EMERGENCY ROOM VISIT NOTE ---
History Report prepared by Sharon: Shahid Rivas Under the Supervision of: Dr. Jacob Raphael M.D. First contact with patient: 12:17 Chief Complaint: FALL Stated Complaint: FELL IN MY LIVING ROOM 3RD DAY History of Present Illness The patient is a 27 year old female who presents to the Emergency Room with complaints of resolved intermittent falls that began three days ago. She rates her discomfort as a 7/10 in severity. The patient states that this is the third episode of falling she had in the last three days. She reports that she does not remember when she falls and is unsure why she is falling. She reports that when she is on the floor after falling, her vision is blurry and she is dizzy. The patient is accompanied by her who states that she bit her tongue during her episode yesterday and was shaking after. Her states that she is usually not responsive for 10 minutes following her falls. She states that she went to the [facility] ED yesterday where they thought she was having seizures. The patient reports she was put on seizure medication, but is unsure which medication. The patient denies previous similar symptoms, injury, back pain before falling, chest pain, shortness of breath, black or bloody stools, suicidal ideations, feeling depressed, numbness or weakness in her legs, incontinence, urinary symptoms, and fever. She denies a history of seizures, but reports that her family has a history of seizures. The patient reports she has a history of chronic back pain and depression. She states that she was put on Penicillin a week ago due to swollen tonsils. Source of History: patient Onset: three days ago Position: other (global) Symptom Intensity: 7/10 Quality: other (falls) Timing: resolved Associated Symptoms: No fevers, No chest pain, No SOB, No melena, No hematochezia, No urinary symptoms, No weakness, No numbness Note: Associated symptoms: lightheadedness, dizzy, blurry vision, biting tongue, shaking. Review of Systems See HPI for pertinent positives & negatives. A total of 10 systems reviewed and were otherwise negative. Past Medical & Surgical Medical Problems: (1) Anxiety and depression (2) Headache Surgical Problems: (1) Cholecystectomy (2) H/O exploratory laparotomy (3) Tubal ligation status Old medical records were reviewed. Nurse's notes were reviewed and I agree with. Family History Asthma Diabetes mellitus FH: cancer Hypertension Seizures Social History Smoking Status: Never Smoker Alcohol Use: occasionally Drug Use: none Marital Status: in relationship Housing Status: lives with family Occupation Status: unemployed Current/Historical Medications Scheduled Amitriptyline Hcl (Elavil), 50 MG PO HS Citalopram Hydrobromide (Celexa), 20 MG PO DAILY Clindamycin Phosphate (Topical (Cleocin-T), 1 APPLN TOP HS Fluticasone Propionate (Nasal) (Flonase Allergy Relief), 2 SPRAYS JACKELIN DAILY Levetiracetam (Keppra), 1 TAB PO BID Magnesium Oxide (Mag-Ox), 400 MG PO HS Riboflavin (B-2-400), 400 MG PO DAILY Sulindac (Clinoril), 200 MG PO BIDM Scheduled PRN Albuterol Hfa (Ventolin Hfa), 2 PUFFS INH Q6H PRN for SOB/Wheezing Ibuprofen Tab (Advil), 600-800 MG PO Q8 PRN for Pain Meloxicam (Meloxicam), 15 MG PO DAILY PRN for Pain Allergies Coded Allergies: Latex (Verified Allergy, Mild, RASH, 10/07/17) Physical Exam Vital Signs Date Time Temp Pulse Resp B/P (MAP) Pulse Ox O2 Delivery O2 Flow Rate FiO2 10/07/17 13:17 76 18 119/80 100 Room Air 10/07/17 11:19 36.9 90 20 91/61 98 Room Air Physical Exam General: Non-ill appearing young female, non-ill appearing, in no acute distress , alert and oriented x3. HEENT: Normal cephalic atraumatic. Pupils are equal round and reactive to light. Extraocular movements are intact. Oropharynx is pink with moist mucous membranes. No swelling of the mouth lips or tongue. Neck: Supple with a midline trachea. No meningeal signs or stiffness, no JVD or bruits. No Stridor. Chest: Clear to auscultation bilaterally. No wheezes or rhonchi. No increased work of breathing. Heart: regular rate and rhythm. Abdomen: Soft nontender, nondistended without rebound guarding or rigidity. Extremities: No cyanosis clubbing or edema. No calf tenderness or assymetry Spine/Back. Non tender to palpation. No CVA tenderness Skin: Good turgor without rashes. Neurologic exam: AxO x3. Cranial nerves two through 12 are intact. Motor and sensation are intact and symmetrical throughout. Medical Decision & Procedures ER Provider Diagnostic Interpretation: X-ray results as stated below per interpretation by me and the radiologist: CHEST ONE VIEW PORTABLE CLINICAL HISTORY: CHEST PAIN dyspnea COMPARISON STUDY: 10/04/2017 FINDINGS: The bones soft tissues and hemidiaphragms are normal. The cardiomediastinal silhouette is normal. The lungs are clear. The pulmonary vasculature is normal. IMPRESSION: Negative chest. The above report was generated using voice recognition software. It may contain grammatical, syntax or spelling errors. Electronically signed by: Riley Ghosh M.D. 10/07/2017 12:56 PM Dictated Date/Time: 10/07/2017 12:55 PM Laboratory Results 10/07/17 13:10 Red Blood Count 4.33, Mean Corpuscular Volume 86.8, Mean Corpuscular Hemoglobin 28.6, Mean Corpuscular Hemoglobin Concent 33.0, Mean Platelet Volume 10.6, Neutrophils (%) (Auto) 70.6, Lymphocytes (%) (Auto) 20.8, Monocytes (%) (Auto) 6.6, Eosinophils (%) (Auto) 1.3, Basophils (%) (Auto) 0.2, Neutrophils # (Auto) 10.68, Lymphocytes # (Auto) 3.14, Monocytes # (Auto) 0.99, Eosinophils # (Auto) 0.19, Basophils # (Auto) 0.03 10/07/17 13:10 Test 10/07/17 12:45 10/07/17 13:10 10/07/17 13:52 Urine Color YELLOW Urine Appearance CLOUDY (CLEAR) Urine pH 7.5 (4.5-7.5) Urine Specific [place] 1.021 (1.000-1.030) Urine Protein NEG (NEG) Urine Glucose (UA) NEG (NEG) Urine Ketones NEG (NEG) Urine Occult Blood NEG (NEG) Urine Nitrite NEG (NEG) Urine Bilirubin NEG (NEG) Urine Urobilinogen NEG (NEG) Urine Leukocyte Esterase NEG (NEG) Urine WBC (Auto) 1-5 /hpf (0-5) Urine RBC (Auto) 0-4 /hpf (0-4) Urine Hyaline Casts (Auto) 1-5 /lpf (0-5) Urine Epithelial Cells (Auto) >30 /lpf (0-5) Urine Bacteria (Auto) 1+ (NEG) Urine Mucus PRESENT (NONE PRSENT) Urine Test NEG (NEG) White Blood Count 15.10 K/uL (4.8-10.8) Red Blood Count 4.33 M/uL (4.2-5.4) Hemoglobin 12.4 g/dL (12.0-16.0) Hematocrit 37.6 % (37-47) Mean Corpuscular Volume 86.8 fL (80-100) Mean Corpuscular Hemoglobin 28.6 pg (25-34) Mean Corpuscular Hemoglobin Concent 33.0 g/dl (32-36) Platelet Count 300 K/uL (130-400) Mean Platelet Volume 10.6 fL (7.4-10.4) Neutrophils (%) (Auto) 70.6 % Lymphocytes (%) (Auto) 20.8 % Monocytes (%) (Auto) 6.6 % Eosinophils (%) (Auto) 1.3 % Basophils (%) (Auto) 0.2 % Neutrophils # (Auto) 10.68 K/uL (1.4-6.5) Lymphocytes # (Auto) 3.14 K/uL (1.2-3.4) Monocytes # (Auto) 0.99 K/uL (0.11-0.59) Eosinophils # (Auto) 0.19 K/uL (0-0.5) Basophils # (Auto) 0.03 K/uL (0-0.2) RDW Standard Deviation 43.3 fL (36.4-46.3) RDW Coefficient of Variation 13.7 % (11.5-14.5) Immature Granulocyte % (Auto) 0.5 % Immature Granulocyte # (Auto) 0.07 K/uL (0.00-0.02) Anion Gap 5.0 mmol/L (3-11) Est Creatinine Clear Calc Drug Dose 209.8 ml/min Estimated GFR () > 150.0 Estimated GFR (Non- 130.2 BUN/Creatinine Ratio 27.6 (10-20) Calcium Level 8.3 mg/dl (8.5-10.1) Total Bilirubin 0.2 mg/dl (0.2-1) Direct Bilirubin < 0.1 mg/dl (0-0.2) Aspartate Amino Transf (AST/SGOT) 20 U/L (15-37) Alanine Aminotransferase (ALT/SGPT) 24 U/L (12-78) Alkaline Phosphatase 97 U/L (45-117) Total Creatine Kinase 53 U/L (26-192) Creatine Kinase MB 0.5 ng/ml (0.5-3.6) Creatine Kinase MB Ratio 0.9 (0-3.0) Troponin I < 0.015 ng/ml (0-0.045) Total Protein 7.2 gm/dl (6.4-8.2) Albumin 3.4 gm/dl (3.4-5.0) Lipase 129 U/L (73-393) Prothrombin Time 10.6 SECONDS (9.0-12.0) Prothromb Time International Ratio 1.0 (0.9-1.1) Activated Partial Thromboplast Time 28.2 SECONDS (21.0-31.0) Partial Thromboplastin Ratio 1.1 Laboratory studies as stated above per my review. Medications Administered Medications (Trade) Dose Ordered Sig/Bjorn Route Start Time Stop Time Status Last Admin Dose Admin Sodium Chloride 1,000 ml @ 999 mls/hr Q1H1M STAT IV 10/07/17 12:25 10/07/17 13:25 DC 10/07/17 12:25 999 MLS/HR ECG Indication: other (dizziness) Rate (beats per minute): 73 Rhythm: normal sinus Findings: RBBB (incomplete), no acute ischemic change Comparison ECG Date: 10/04/17 Change: no significant change ED Course 1218: Past medical records reviewed. The patient was evaluated in room C08, and a complete history and physical examination were performed. 1225: Ordered Sodium Chloride 1000 ml @ 999 mls/hr IV. 1417: I reevaluated the patient and updated her on her results. I discussed the treatment plan with the patient and she agrees. The patient will be further evaluated. 1422: I discussed the patients case with NAVA Norton [facility] Hospitalist. She understands the patients condition and agrees to accept the patient. The patient will be further evaluated. Medical Decision Differentials include, but are not limited to; Seizure, syncope, trauma, infection, and electrolyte or metabolic abnormality. This patient comes in as described above. This is her third ER visits in the last 3 or 4 days after either having syncopal episodes or seizures or other reason for falling. She is a poor historian but is not sure why she keeps falling. She had extensive workup done here 2 days ago including a CAT scan of her head. She apparently was also [facility] yesterday and tells me they thought she had seizures we'll start on some unknown medication. I did extensive workup. A EKG was unremarkable multiple blood testing was unremarkable. She did apparently bite her tongue and her thought she has some shakiness posturals was a seizure. I do think she needs to be observed/admitted for further inpatient treatment and evaluation. [facility]. Medication Reconcilliation Current Medication List: was personally reviewed by me Blood Pressure Screening Patient's blood pressure: Normal blood pressure Consults Time Called: 1421 Consulting Physician: NAVA Norton [facility] Hospitalist Returned Call: 1421 1421: I discussed the patients case with NAVA Norton [facility] Hospitalist. She understands the patients condition and agrees to accept the patient. The patient will be further evaluated. Impression Primary Impression: Seizure-like activity Scribe Attestation The scribe's documentation has been prepared under my direction and personally reviewed by me in its entirety. I confirm that the note above accurately reflects all work, treatment, procedures, and medical decision making performed by me. Departure Information Dispostion Being Evaluated By Hospitalist Jose Hines M.D. (PCP) Patient Instructions My [facility]
--- NOTE | 2017-10-07 12:57 | DIAGNOSTIC IMAGING REPORT ---
CHEST ONE VIEW PORTABLE CLINICAL HISTORY: CHEST PAIN dyspnea COMPARISON STUDY: 10/04/2017 FINDINGS: The bones soft tissues and hemidiaphragms are normal. The cardiomediastinal silhouette is normal. The lungs are clear. The pulmonary vasculature is normal. IMPRESSION: Negative chest. The above report was generated using voice recognition software. It may contain grammatical, syntax or spelling errors. Electronically signed by: Riley Ghosh M.D. 10/07/2017 12:56 PM Dictated Date/Time: 10/07/2017 12:55 PM
[2017-10-07 13:33] LABS: BASO % 0.2 %; BASO ABS # 0.03 K/uL (0-0.2); EOS % 1.3 %; EOS ABS # 0.19 K/uL (0-0.5); HEMATOCRIT 37.6 % (37-47); HEMOGLOBIN 12.4 g/dL (12.0-16.0); IG# 0.07 K/uL (0.00-0.02); LYMPH % 20.8 %; LYMPH ABS # 3.14 K/uL (1.2-3.4); MEAN CELL VOLUME 86.8 fL (80-100); MEAN CORPUSCULAR HEMOGLOBIN 28.6 pg (25-34); MEAN PLATELET VOLUME 10.6 fL (7.4-10.4); MONO % 6.6 %; MONO ABS # 0.99 K/uL (0.11-0.59); NEUT % 70.6 %; NEUT ABS # 10.68 K/uL (1.4-6.5); PLATELET COUNT 300 K/uL (130-400); RED CELL DISTRIBUTION WIDTH CV 13.7 % (11.5-14.5); RED CELL DISTRIBUTION WIDTH SD 43.3 fL (36.4-46.3)
[2017-10-07 13:55] LABS: ALBUMIN 3.4 gm/dl (3.4-5.0); ALT/SGPT 24 U/L (12-78); AST/SGOT 20 U/L (15-37); BLOOD UREA NITROGEN 15 mg/dl (7-18); CALCIUM 8.3 mg/dl (8.5-10.1); CARBON DIOXIDE 25 mmol/L (21-32); CREATININE 0.54 mg/dl (0.60-1.20); GLUCOSE 77 mg/dl (70-99); LIPASE 129 U/L (73-393); POTASSIUM 3.6 mmol/L (3.5-5.1); SODIUM 140 mmol/L (136-145)
[2017-10-07 14:01] LABS: ALKALINE PHOSPHATASE 97 U/L (45-117); CKMB 0.5 ng/ml (0.5-3.6); TOTAL PROTEIN 7.2 gm/dl (6.4-8.2)
[2017-10-07 14:35] LABS: PTT PATIENT 28.2 SECONDS (21.0-31.0)
--- NOTE | 2017-10-07 14:48 | Pharmacy Progress Note ---
ED Pharmacist Progress Note Date of Service: Oct 07, 2017. Was asked by Dr. Raphael to inquire about recently prescribed anti-seizure medication. I spoke marisol Tracey who confirmed that she was recently seen in [facility]'s ED. Patient was unsure of medication prescribed, but gave permission for me to call. Patient reports that she has not yet filled/started this prescription. Called [facility] ED and spoke marisol Zepeda (RN) who noted the patient was recently provided the following prescription: Keppra 500 mg tab 1 tab po BID, dispense 60 tab
[2017-10-07] MEDS ORDERED: ONDANSETRON INJ 2 MG/ML 2 ML VIAL IV PRN (15:00)
[2017-10-07] MEDS ORDERED: ACETAMINOPHEN 325 MG TAB PO PRN (15:00)
[2017-10-07] MEDS ORDERED: MELO15TA4 PO (15:36)
[2017-10-07] MEDS ORDERED: LEVE500T13 PO (15:36)
[2017-10-07 15:51] VITALS: O2SAT 98; Ht 170.2 cm; Wt 119.0 kg
--- NOTE | 2017-10-07 16:08 | DIAGNOSTIC IMAGING REPORT ---
BRAIN COMBO FOR SEIZURE CLINICAL HISTORY: possible seizure mental status change COMPARISON STUDY: 04/11/2013 TECHNIQUE: Utilizing a 1.5 Jonna magnet and dedicated coil, multiplanar, multiecho imaging of the brain was performed pre and postcontrast administration. IV administration of 7.5 mL of Gadavist contrast was uneventful. Thin cut coronal T2 imaging was performed according to seizure protocol. FINDINGS: Diffusion-weighted images are negative for an acute ischemic insult. Signal characteristics of the cerebellar as well as cerebral hemispheres are unremarkable. Ventricular system is midline. No abnormal postcontrast enhancement IMPRESSION: Normal study. The above report was generated using voice recognition software. It may contain grammatical, syntax or spelling errors. Electronically signed by: Riley Ghosh M.D. 10/07/2017 4:07 PM Dictated Date/Time: 10/07/2017 4:03 PM
--- NOTE | 2017-10-07 16:09 | History and Physical ---
History & Physical Date & Time of Service: Oct 07, 2017 ~ 14:30 Chief Complaint: Falls Primary Care Physician: Jose Garcia M.D. History of Present Illness 27 year old female who presents to the ED with frequent falls. Patient has been seen in the ED 3 times in the past 4 days. Patient describes events that she suddenly falls and wakes up on the floor not remembering falling or what happened. witnessed the event yesterday and reports that she had whole body shaking for about 10 minutes. She also had tongue biting but there was no incontinence or vomiting. When she came to, she a little slow to respond for about one minute. She then got up and walked to the couch. Patient reports she does not remember this event. She was seen in the [place] ED yesterday for this complaint and was given an anti-seizure medication (patient is unsure of the name). She also had a head CT that was unremarkable per the patient. She was also discharged on Keppra however patient reports she did not pick the medicine up from the pharmacy yet. Patient had another unwitnessed fall at home today. She is unsure if she looses coconsciousness or strikes her head. She denies any preceding chest pain or shortness of breath. She currently has a mild frontal headache and denies photosensitivity, neck stiffness, and blurred vision. She denies any recent illnesses, fever, and chills. No abdominal pain, nausea, vomiting, or diarrhea. She denies any urinary symptoms. In the ED, labs are unremarkable and vitals are stable. Past Medical/Surgical History Medical Problems: (1) Anxiety and depression Status: Chronic (2) Headache Status: Chronic Surgical Problems: (1) Cholecystectomy Status: Chronic (2) H/O exploratory laparotomy Permanent Comment: lysis of adhesions Status: Chronic (3) Tubal ligation status Status: Chronic Family History Seizures UNCLE Social History Smoking Status: Former Smoker Alcohol Use: occasionally Marital Status: in relationship Immunizations History of Influenza Vaccine: Yes Influenza Vaccine Date: Jun 25, 2017 History of Tetanus Vaccine?: Yes Tetanus Immunization Date: Dec 23, 2014 History of Pneumococcal: Yes Pneumococcal Date: Dec 23, 2014 Allergies Coded Allergies: Latex (Verified Allergy, Mild, RASH, 10/07/17) Home Medications Scheduled Amitriptyline Hcl (Elavil), 50 MG PO HS Citalopram Hydrobromide (Celexa), 20 MG PO DAILY Clindamycin Phosphate (Topical (Cleocin-T), 1 APPLN TOP HS Fluticasone Propionate (Nasal) (Flonase Allergy Relief), 2 SPRAYS JACKELIN DAILY Levetiracetam (Keppra), 1 TAB PO BID Magnesium Oxide (Mag-Ox), 400 MG PO HS Riboflavin (B-2-400), 400 MG PO DAILY Sulindac (Clinoril), 200 MG PO BIDM Scheduled PRN Albuterol Hfa (Ventolin Hfa), 2 PUFFS INH Q6H PRN for SOB/Wheezing Ibuprofen Tab (Advil), 600-800 MG PO Q8 PRN for Pain Meloxicam (Meloxicam), 15 MG PO DAILY PRN for Pain Review of Systems ROS per HPI, all other systems reviewed and negative Physical Exam Vital Signs Date Time Temp Pulse Resp B/P (MAP) Pulse Ox O2 Delivery O2 Flow Rate FiO2 10/07/17 13:17 76 18 119/80 100 Room Air 10/07/17 11:19 36.9 90 20 91/61 98 Room Air General Appearance: WD/WN, no apparent distress Head: normocephalic, atraumatic Eyes: normal inspection, PERRL, EOMI, + pertinent finding (chronic wallace discoloration noted to right eye) ENT: hearing grossly normal, + pertinent finding (mucous membranes moist) Neck: supple, no JVD, trachea midline Respiratory/Chest: lungs clear, normal breath sounds, no respiratory distress Cardiovascular: regular rate, rhythm, no edema, normal peripheral pulses Abdomen/GI: normal bowel sounds, non tender, soft, no organomegaly Extremities/Musculoskelatal: normal inspection, no calf tenderness, normal capillary refill Neurologic/Psych: no motor/sensory deficits, alert, normal mood/affect, oriented x 3 Skin: normal color, warm/dry Diagnostics Laboratory Results Results Past 24 Hours Test 10/07/17 12:45 10/07/17 13:10 10/07/17 13:52 Range/Units Urine Color YELLOW Urine Appearance CLOUDY CLEAR Urine pH 7.5 4.5-7.5 Urine Specific [place] 1.021 1.000-1.030 Urine Protein NEG NEG Urine Glucose (UA) NEG NEG Urine Ketones NEG NEG Urine Occult Blood NEG NEG Urine Nitrite NEG NEG Urine Bilirubin NEG NEG Urine Urobilinogen NEG NEG Urine Leukocyte Esterase NEG NEG Urine WBC (Auto) 1-5 0-5 /hpf Urine RBC (Auto) 0-4 0-4 /hpf Urine Hyaline Casts (Auto) 1-5 0-5 /lpf Urine Epithelial Cells (Auto) >30 0-5 /lpf Urine Bacteria (Auto) 1+ NEG Urine Mucus PRESENT NONE PRSENT Urine Test NEG NEG White Blood Count 15.10 4.8-10.8 K/uL Red Blood Count 4.33 4.2-5.4 M/uL Hemoglobin 12.4 12.0-16.0 g/dL Hematocrit 37.6 37-47 % Mean Corpuscular Volume 86.8 80-100 fL Mean Corpuscular Hemoglobin 28.6 25-34 pg Mean Corpuscular Hemoglobin Concent 33.0 32-36 g/dl Platelet Count 300 130-400 K/uL Mean Platelet Volume 10.6 7.4-10.4 fL Neutrophils (%) (Auto) 70.6 % Lymphocytes (%) (Auto) 20.8 % Monocytes (%) (Auto) 6.6 % Eosinophils (%) (Auto) 1.3 % Basophils (%) (Auto) 0.2 % Neutrophils # (Auto) 10.68 1.4-6.5 K/uL Lymphocytes # (Auto) 3.14 1.2-3.4 K/uL Monocytes # (Auto) 0.99 0.11-0.59 K/uL Eosinophils # (Auto) 0.19 0-0.5 K/uL Basophils # (Auto) 0.03 0-0.2 K/uL RDW Standard Deviation 43.3 36.4-46.3 fL RDW Coefficient of Variation 13.7 11.5-14.5 % Immature Granulocyte % (Auto) 0.5 % Immature Granulocyte # (Auto) 0.07 0.00-0.02 K/uL Sodium Level 140 136-145 mmol/L Potassium Level 3.6 3.5-5.1 mmol/L Chloride Level 110 98-107 mmol/L Carbon Dioxide Level 25 21-32 mmol/L Anion Gap 5.0 3-11 mmol/L Blood Urea Nitrogen 15 7-18 mg/dl Creatinine 0.54 0.60-1.20 mg/dl Est Creatinine Clear Calc Drug Dose 209.8 ml/min Estimated GFR () > 150.0 Estimated GFR (Non- 130.2 BUN/Creatinine Ratio 27.6 10-20 Random Glucose 77 70-99 mg/dl Calcium Level 8.3 8.5-10.1 mg/dl Total Bilirubin 0.2 0.2-1 mg/dl Direct Bilirubin < 0.1 0-0.2 mg/dl Aspartate Amino Transf (AST/SGOT) 20 15-37 U/L Alanine Aminotransferase (ALT/SGPT) 24 12-78 U/L Alkaline Phosphatase 97 45-117 U/L Total Creatine Kinase 53 26-192 U/L Creatine Kinase MB 0.5 0.5-3.6 ng/ml Creatine Kinase MB Ratio 0.9 0-3.0 Troponin I < 0.015 0-0.045 ng/ml Total Protein 7.2 6.4-8.2 gm/dl Albumin 3.4 3.4-5.0 gm/dl Lipase 129 73-393 U/L Prothrombin Time 10.6 9.0-12.0 SECONDS Prothromb Time International Ratio 1.0 0.9-1.1 Activated Partial Thromboplast Time 28.2 21.0-31.0 SECONDS Partial Thromboplastin Ratio 1.1 Microbiology Results 10/07/17 Urine Culture, Received Pending Diagnostic Radiology CXR IMPRESSION: Negative chest. Impression Assessment and Plan FREQUENT FALLS - admit to tele - patient presenting with 3 falls in the past 4 days, only one was witnessed by her yesterday and he describes seizure like activity - patient was seen at [facility] yesterday and discharged on Keppra however did not rock picker with prescription - obtain records from [facility] - consider syncope, will check orthostatic BPs and monitor on tele for arrhythmias - no meningeal signs on exam - EEG, brain MRI - seizure precautions - case discussed with Dr. Cao - will continue Keppra 500mg BID, decrease amitriptyline to 25mg HS, continue citalopram at current dosing ANXIETY / DEPRESSION - citalopram as above HEADACHES - amitriptyline as above DVT PROPHYLAXIS - SCDs DISPO - The patient will be placed as observation status for now until further work up is complete. VTE Prophylaxis VTE Risk Assessment Done? Y/N: Yes Risk Level: Moderate Given or contraindicated: SCD's Note ATTENDING ADDENDUM Record reviewed. Patient interviewed and examined. Care coordinated with NAVA Norton. Please refer to her documentation for patient's history. Briefly, 27 YO female with history of headaches. 3 falls over the past few days. One episode was witnessed by her who described unresponsiveness, shaking of whole body, and tongue biting. EXAM: General- no distress VS- as noted HEENT- anicteric Neck- supple Lungs- clear Heart- RRR Abdomen- + BS, soft, nontender Extremities- no edema or calf tenderness Neuro- alert, oriented; PERRL, EOMI; no facial palsy; no dysarthria; motor strength upper and lower extremities 5/5; patellar DTR's 1/2 bilat; finger to nose intact DATA: WBC 15,100. Other lab studies as noted. CXR negative. CT head at [facility] 10/04/[address] head at [facility] yesterday reportedly negative. EKG performed at 12:39 reviewed and demonstrated NSR 70/min, no acute changes. ASSESSMENT AND PLAN: Apparent syncope, possible seizure. Check MRI. Check EEG. Consult Neuro. . Please refer to LOULOU Polo's documentation for discussion of other issues. Bruce Soria MD .
[2017-10-07] MEDS ORDERED: GADAVIST IV PRN (16:15)
[2017-10-07 16:22] VITALS: O2SAT 98
[2017-10-07] MEDS ORDERED: IV FLUIDS COMPLETED PRN (16:45)
[2017-10-07 16:50] VITALS: BP 111/78; PULSE 79; TEMP 36.6; O2SAT 98
[2017-10-07] MEDS: LEVETIRACETAM 500 MG TAB PO SCH ×2 (17:43→20:27)
[2017-10-07] MEDS: SULINDAC 200 MG TAB PO SCH (17:44)
[2017-10-07 20:08] VITALS: BP_SYST 107; BP_SYST 110; BP_SYST 138; BP_DIAS 75; BP_DIAS 77; PULSE 100; PULSE 80; PULSE 90; TEMP 37.4; O2SAT 95; O2SAT 98
[2017-10-07] MEDS: MAGNESIUM OXIDE 400 MG TAB PO SCH (20:27)
[2017-10-07] MEDS: AMITRIPTYLINE HCL 25 MG TAB PO SCH (20:27)
[2017-10-08] VITALS: BP_SYST 110; BP_SYST 115; BP_SYST 123; BP_DIAS 78; BP_DIAS 82; BP_DIAS 94; PULSE 78; TEMP 36.4; O2SAT 96
[2017-10-08 04:15] VITALS: BP 116/72; PULSE 74; TEMP 36.6; O2SAT 96
[2017-10-08 07:23] LABS: HEMATOCRIT 38.3 % (37-47); HEMOGLOBIN 12.8 g/dL (12.0-16.0); MEAN CELL VOLUME 85.9 fL (80-100); MEAN CORPUSCULAR HEMOGLOBIN 28.7 pg (25-34); MEAN CORPUSCULAR HGB CONC 33.4 g/dl (32-36); MEAN PLATELET VOLUME 10.5 fL (7.4-10.4); PLATELET COUNT 294 K/uL (130-400); RED CELL DISTRIBUTION WIDTH CV 13.6 % (11.5-14.5); RED CELL DISTRIBUTION WIDTH SD 42.6 fL (36.4-46.3); WHITE BLOOD COUNT 11.78 K/uL (4.8-10.8)
[2017-10-08 07:45] VITALS: BP 128/80; PULSE 80; TEMP 36.6; O2SAT 97
[2017-10-08] MEDS: LEVETIRACETAM 500 MG TAB PO SCH ×2 (07:48→20:54)
[2017-10-08] MEDS: SULINDAC 200 MG TAB PO SCH ×2 (07:49→16:43)
[2017-10-08] MEDS: CITALOPRAM 20 MG TAB PO SCH (07:49)
[2017-10-08 07:51] LABS: BLOOD UREA NITROGEN 15 mg/dl (7-18); CALCIUM 8.6 mg/dl (8.5-10.1); CARBON DIOXIDE 25 mmol/L (21-32); CREATININE 0.52 mg/dl (0.60-1.20); GLUCOSE 92 mg/dl (70-99); POTASSIUM 3.7 mmol/L (3.5-5.1); SODIUM 139 mmol/L (136-145)
[2017-10-08] MEDS ORDERED: RIBOFLAVIN 400 MG PO SCH (09:00)
[2017-10-08 11:29] VITALS: BP 115/72; PULSE 82; TEMP 36.8; O2SAT 95
--- NOTE | 2017-10-08 11:49 | ELECTROENCEPHALOGRAPH REPORT ---
FOR: NAVA Norton CLINICAL DIAGNOSIS: Recurrent syncopal episodes, possible seizures. ELECTROENCEPHALOGRAM DIAGNOSIS: Essentially normal during wakefulness. DESCRIPTION OF TRACING: This EEG was done as a bedside recording and is of excellent technical quality. A simultaneous video analysis of patient movement and behavior was obtained. Photic stimulation was the only stimulus parameter utilized. Drowsiness and light sleep were not recorded. Under these conditions, there is evidence for normal appearing background rhythm in the alpha range of up to 10 Hz of maximum frequency and 30 microvolts of maximum amplitude. This is maximum posterior head regions and bilaterally symmetrical. Polymorphic mid frequency modest voltage theta activity is seen over all head regions without clear focal or regional predominance. Anterior head region maximum bilaterally symmetrical low voltage fast activity in the beta range is present. Photic stimulation provokes a modest driving response without a photomyogenic or photoparoxysmal component. At no time during the waking tracing is there evidence for potentially epileptogenic activity in the form of polyspike or spike wave bursts, focal sharp waves or focal spikes. INTERPRETATION: This EEG is essentially normal during wakefulness without evidence for focal or generalized encephalopathy and without evidence for potentially epileptogenic activity.
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
--- NOTE | 2017-10-08 15:22 | Progress Note ---
Internal Med Progress Note Date of Service: Oct 08, 2017. Provider Documentation: SUBJECTIVE: Seen and examined at bedside No seizure like activity since hospitalization Denies chest pain, SOB, dizziness OBJECTIVE: Vital Signs-as noted below Physical Exam: Vitals signs as noted above General Appearance:Obese, no apparent distress Head: normocephalic, Atraumatic Eyes: normal inspection, EOMI, PERRL Neck: supple, Trachea midline Respiratory/Chest: Normal breath sounds, CTA Cardiovascular: S1, S2, No murmur Abdomen/GI:Soft, Non tender, Bowel sounds present Extremities/Musculoskelatal:normal inspection, no edema Neurologic/Psych:AAOX3, grossly no focal neurological deficits Skin: normal color, warm Lab data as noted below. ASSESSMENT & PLAN: Frequent falls, ? recurrent syncopal episodes DD: seizure Monitor in tele or any rhythm issues Appreciate Neurology Input Continue Keppra Check orthostatics EEG, brain MRI, Carotid Doppler: normal seizure precautions ECHO: * There is normal left ventricular wall thickness. * The left ventricular wall motion is normal. * Left ventricular systolic function is normal. * The LV Ejection Fraction = 60-65%. * The right ventricle is mildly dilated. * The right ventricular systolic function is normal. * There is no evidence of atrial septal defect, but resolution does not allow assessment for a patent foramen ovale. * The LV diastolic function is normal. Anxiety/Depression continue citalopram Headaches continue amitriptyline DVT Px: SCDs Disposition: Monitor in Tele Vital Signs: Date Time Temp Pulse Resp B/P (MAP) Pulse Ox O2 Delivery O2 Flow Rate FiO2 10/08/17 16:18 36.6 90 16 138/76 (96) 98 Room Air 10/08/17 16:00 Room Air 10/08/17 12:15 Room Air 10/08/17 11:29 36.8 82 18 115/72 (86) 95 Room Air 10/08/17 08:15 Room Air 10/08/17 07:45 36.6 80 18 128/80 (96) 97 Room Air 10/08/17 04:15 36.6 74 20 116/72 (87) 96 Room Air 10/08/17 04:00 Room Air 10/08/17 00:00 36.4 78 15 123/82 (96) 96 Room Air 115/78 (90) 110/94 (99) 10/08/17 00:00 Room Air 1/2/18 20:08 98 Room Air 10/07/17 20:08 37.4 80 18 138/75 (96) 95 Room Air 90 110/75 (87) 100 107/77 (87) Lab Results: Results Past 24 Hours Test 10/08/17 07:00 Range/Units White Blood Count 11.78 4.8-10.8 K/uL Red Blood Count 4.46 4.2-5.4 M/uL Hemoglobin 12.8 12.0-16.0 g/dL Hematocrit 38.3 37-47 % Mean Corpuscular Volume 85.9 80-100 fL Mean Corpuscular Hemoglobin 28.7 25-34 pg Mean Corpuscular Hemoglobin Concent 33.4 32-36 g/dl RDW Standard Deviation 42.6 36.4-46.3 fL RDW Coefficient of Variation 13.6 11.5-14.5 % Platelet Count 294 130-400 K/uL Mean Platelet Volume 10.5 7.4-10.4 fL Sodium Level 139 136-145 mmol/L Potassium Level 3.7 3.5-5.1 mmol/L Chloride Level 109 98-107 mmol/L Carbon Dioxide Level 25 21-32 mmol/L Anion Gap 5.0 3-11 mmol/L Blood Urea Nitrogen 15 7-18 mg/dl Creatinine 0.52 0.60-1.20 mg/dl Est Creatinine Clear Calc Drug Dose 218.2 ml/min Estimated GFR () > 150.0 Estimated GFR (Non- 131.9 BUN/Creatinine Ratio 28.6 10-20 Random Glucose 92 70-99 mg/dl Calcium Level 8.6 8.5-10.1 mg/dl
[2017-10-08 16:18] VITALS: BP 138/76; PULSE 90; TEMP 36.6; O2SAT 98
--- NOTE | 2017-10-08 16:22 | ECHOCARDIOGRAM REPORT ---
*NOTICE TO RECEIVING [facility] This information is strictly Confidential and protected under [place] law. [place] law prohibits you from making any further disclosure of this information unless further disclosure is expressly permitted by the written consent of the person to whom it pertains or is authorized by law. A general authorization for the release of medical or other information is not sufficient for this purpose. Hospital accepts no responsibility if the information is made available to any other person, INCLUDING THE PATIENT. Interpretation Summary * Name: TARIK MATUTE Study Date: 10/08/2017 03:01 PM BP: 115/72 mmHg * Patient Location: [facility]\S\N281\S\1 HR: 82 * : 1990 (M/d/yyyy) Gender: Female Height: 67 in * Age: 27 yrs Ethnicity: [place] Weight: 260 lb * Ordering Physician: Colleen Max * Referring Physician: ANGUS * Performed By: Edith Howard RDCS * * Reason For Study: SYNCOPE, UNEXPLAINED LOC * BSA: 2.3 m2 * The study was technically adequate. * -- Conclusions -- * There is normal left ventricular wall thickness. * The left ventricular wall motion is normal. * Left ventricular systolic function is normal. * The LV Ejection Fraction = 60-65%. * The right ventricle is mildly dilated. * The right ventricular systolic function is normal. * There is no evidence of atrial septal defect, but resolution does not allow assessment for a patent foramen ovale. * The LV diastolic function is normal. Procedure Details * A complete two-dimensional transthoracic echocardiogram was performed (2D, M-mode, Doppler and color flow Doppler). Left Ventricle * The left ventricle is normal in size. * There is normal left ventricular wall thickness. * Left ventricular systolic function is normal. * Ejection Fraction = 60-65%. * The left ventricular wall motion is normal. Right Ventricle * The right ventricle is mildly dilated. * The right ventricular systolic function is normal. Atria * The left atrial size is normal. * Right atrial size is normal. * There is no evidence of atrial septal defect, but resolution does not allow assessment for a patent foramen ovale. Mitral Valve * The mitral valve is normal. * There is no mitral valve stenosis. * Significant mitral regurgitation is absent. Tricuspid Valve * The tricuspid valve is normal. * There is no tricuspid stenosis. * Significant tricuspid regurgitation is absent. * Doppler findings do not suggest pulmonary hypertension. Aortic Valve * The aortic valve is trileaflet. * Aortic stenosis is absent. * There is no significant aortic regurgitation. Pulmonic Valve * The pulmonary valve is not well seen, but the Doppler examination is normal without significant regurgitation or stenosis. Great Vessels * The aortic root and proximal ascending aorta are normal sized. Pericardium/Pleural * There is no pericardial effusion. Great Vessels * Normal inferior vena cava diameter and respiratory variation suggests normal central venous pressure. Left Ventricular Diastolic Function * The LV diastolic function is normal. MMode 2D Measurements and Calculations IVSd 0.83 cm IVSs 1.1 cm LVIDd 4.5 cm LVIDs 3.1 cm LVPWd 1.1 cm LVPWs 1.8 cm IVS/LVPW 0.73 FS 30.7 % EDV(Teich) 94.1 ml ESV(Teich) 39.2 ml EF(Teich) 58.4 % EDV(cubed) 93.2 ml ESV(cubed) 31.0 ml EF(cubed) 66.7 % % IVS thick 37.7 % % LVPW thick 55.5 % LV mass(C)d 152.8 grams LV mass(C)dI 67.6 grams/m\S\2 LV mass(C)s 160.9 grams LV mass(C)sI 71.2 grams/m\S\2 SV(Teich) 54.9 ml SI(Teich) 24.3 ml/m\S\2 SV(cubed) 62.2 ml SI(cubed) 27.5 ml/m\S\2 Ao root diam 2.7 cm Ao root area 5.6 cm\S\2 LA dimension 2.6 cm LA/Ao 0.98 LVAd ap4 28.5 cm\S\2 LVLd ap4 7.8 cm EDV(MOD-sp4) 86.1 ml EDV(sp4-el) 87.8 ml LVAs ap4 17.9 cm\S\2 LVLs ap4 6.8 cm ESV(MOD-sp4) 40.7 ml ESV(sp4-el) 39.9 ml EF(MOD-sp4) 52.7 % EF(sp4-el) 54.6 % LVAd ap2 26.5 cm\S\2 LVLd ap2 8.1 cm EDV(MOD-sp2) 75.1 ml EDV(sp2-el) 74.2 ml LVAs ap2 16.0 cm\S\2 LVLs ap2 6.9 cm ESV(MOD-sp2) 32.7 ml ESV(sp2-el) 31.3 ml EF(MOD-sp2) 56.4 % EF(sp2-el) 57.9 % LVLd %diff 2.8 % EDV(MOD-bp) 80.6 ml LVLs %diff 1.5 % ESV(MOD-bp) 36.7 ml EF(MOD-bp) 54.5 % SV(MOD-sp4) 45.4 ml SI(MOD-sp4) 20.1 ml/m\S\2 SV(MOD-sp2) 42.4 ml SI(MOD-sp2) 18.8 ml/m\S\2 SV(MOD-bp) 43.9 ml SI(MOD-bp) 19.4 ml/m\S\2 SV(sp4-el) 47.9 ml SI(sp4-el) 21.2 ml/m\S\2 SV(sp2-el) 42.9 ml SI(sp2-el) 19.0 ml/m\S\2 Doppler Measurements and Calculations MV E max ceasar 85.9 cm/sec MV A max ceasar 40.7 cm/sec MV E/A 2.1 MV dec time 0.31 sec Ao V2 max 115.5 cm/sec Ao max PG 5.3 mmHg Ao max PG (full) 1.8 mmHg LV V1 max PG 3.6 mmHg LV V1 max 94.6 cm/sec TR max ceasar 195.5 cm/sec
--- NOTE | 2017-10-08 17:04 | DIAGNOSTIC IMAGING REPORT ---
CAROTID DOPPLER NECK ART CLINICAL HISTORY: 27 years-old Female presenting with syncope. TECHNIQUE: Real-time grayscale and color and spectral Doppler ultrasound imaging of the bilateral carotid arteries was performed. NASCET criteria was used in evaluating this study. COMPARISON: CT soft tissue neck from 10/02/2017. FINDINGS: Right: Common carotid: Patent. Peak systolic velocity 93 cm/s. Internal carotid artery: Patent. Peak systolic velocity 85 cm/s. Systolic ratio: 0.9. External carotid artery: Patent. Peak systolic velocity 95 cm/s. Left: Common carotid: Patent. Peak systolic velocity 102 cm/s. Internal carotid artery: Patent. Peak systolic velocity 117 cm/s. Systolic ratio: 1.2. External carotid artery: Patent. Peak systolic velocity 95 cm/s. Bilateral antegrade flow within the vertebral arteries. Reference ranges: Stenosis measurements are compared to reference velocity parameters. ICA peak systolic velocity (PSV) < 125 cm/s normal or indicating < 50% stenosis; ICA PSV 125-230 cm/s equivalent to 50-69% stenosis; ICA PSV > 230 cm/s equivalent to greater than or equal to 70% stenosis. ICA PSV to common carotid artery PSV ratio < 2 normal or < 50% stenosis; 2-4 equates to 50-69% stenosis, > 4 equates to greater than or equal to 70% stenosis. Normal ICA end-diastolic velocity less than 40. Blood pressure Brachial: Right: 128/80 mmHg, Left: 116/72 mmHg. IMPRESSION: No hemodynamically significant stenosis seen within the carotid arteries. Electronically signed by: Alton Eubanks M.D. 10/08/2017 5:03 PM Dictated Date/Time: 10/08/2017 5:01 PM
[2017-10-08 20:22] VITALS: BP_SYST 121; BP_SYST 126; BP_SYST 129; BP_DIAS 80; BP_DIAS 84; BP_DIAS 88; PULSE 106; PULSE 95; TEMP 36.6; O2SAT 93
[2017-10-08] MEDS: AMITRIPTYLINE HCL 25 MG TAB PO SCH (20:53)
[2017-10-08] MEDS: MAGNESIUM OXIDE 400 MG TAB PO SCH (20:54)
[2017-10-09 04:56] VITALS: BP_SYST 114; BP_SYST 178; BP_DIAS 70; BP_DIAS 91; PULSE 72; PULSE 75; TEMP 36.3; TEMP 36.7; O2SAT 93; O2SAT 94
[2017-10-09 06:04] LABS: HEMATOCRIT 38.6 % (37-47); HEMOGLOBIN 12.7 g/dL (12.0-16.0); MEAN CORPUSCULAR HEMOGLOBIN 28.3 pg (25-34); MEAN CORPUSCULAR HGB CONC 32.9 g/dl (32-36); MEAN PLATELET VOLUME 10.5 fL (7.4-10.4); PLATELET COUNT 319 K/uL (130-400); RED CELL DISTRIBUTION WIDTH CV 13.6 % (11.5-14.5); RED CELL DISTRIBUTION WIDTH SD 42.4 fL (36.4-46.3); WHITE BLOOD COUNT 11.24 K/uL (4.8-10.8)
[2017-10-09 06:35] LABS: BLOOD UREA NITROGEN 19 mg/dl (7-18); CALCIUM 8.4 mg/dl (8.5-10.1); CARBON DIOXIDE 24 mmol/L (21-32); CREATININE 0.54 mg/dl (0.60-1.20); GLUCOSE 100 mg/dl (70-99); POTASSIUM 3.7 mmol/L (3.5-5.1); SODIUM 139 mmol/L (136-145)
[2017-10-09 07:32] VITALS: BP_SYST 105; BP_SYST 108; BP_SYST 116; BP_DIAS 73; BP_DIAS 77; PULSE 102; PULSE 130; PULSE 79; TEMP 36.4; O2SAT 95
[2017-10-09] MEDS: LEVETIRACETAM 500 MG TAB PO SCH (07:45)
[2017-10-09] MEDS: SULINDAC 200 MG TAB PO SCH (07:46)
[2017-10-09] MEDS: CITALOPRAM 20 MG TAB PO SCH (07:46)
[2017-10-09 12:01] VITALS: BP 126/107; PULSE 79; TEMP 36.5; O2SAT 98
--- NOTE | 2017-10-09 13:59 | Progress Note ---
Internal Med Progress Note Date of Service: Oct 09, 2017. Provider Documentation: SUBJECTIVE: Seen and examined at bedside Feels tired No other complaints No seizure like activity since hospitalization Denies chest pain, SOB, dizziness OBJECTIVE: Vital Signs-as noted below Physical Exam: Vitals signs as noted above General Appearance:Obese, no apparent distress Head: normocephalic, Atraumatic Eyes: normal inspection, EOMI, PERRL Neck: supple, Trachea midline Respiratory/Chest: Normal breath sounds, CTA Cardiovascular: S1, S2, No murmur Abdomen/GI:Soft, Non tender, Bowel sounds present Extremities/Musculoskelatal:normal inspection, no edema Neurologic/Psych:AAOX3, grossly no focal neurological deficits Skin: normal color, warm Lab data as noted below. ASSESSMENT & PLAN: Frequent falls, Possible recurrent syncopal episodes DD: seizure No rhythm issues on Telemetry Appreciate Neurology Input Continue Keppra EEG, brain MRI, Carotid Doppler: normal seizure precautions ECHO: * There is normal left ventricular wall thickness. * The left ventricular wall motion is normal. * Left ventricular systolic function is normal. * The LV Ejection Fraction = 60-65%. * The right ventricle is mildly dilated. * The right ventricular systolic function is normal. * There is no evidence of atrial septal defect, but resolution does not allow assessment for a patent foramen ovale. * The LV diastolic function is normal. Needs ZIO patch and 72 hour EEG as outpatient Anxiety/Depression continue citalopram Headaches continue amitriptyline DVT Px: SCDs Disposition: Plan to discharge home today Follow up with Primary Care physician on 10/15/2017 at 9:00AM Follow up with your Neurologist Colleen Max on 10/20/2017 at 9:20AM Get ZIO patch and 72 hour EEG done as outpatient Seek immediate medical attention if your symptoms reoccur or worsen Driving not permitted until cleared by your Neurologist Vital Signs: Date Time Temp Pulse Resp B/P (MAP) Pulse Ox O2 Delivery O2 Flow Rate FiO2 10/09/17 12:01 36.5 79 15 126/107 (113) 98 Room Air 10/09/17 12:00 Room Air 10/09/17 08:00 Room Air 10/09/17 07:32 36.4 79 18 108/73 (85) 95 Room Air 102 105/73 (84) 130 116/77 (90) 10/09/17 04:56 36.3 72 20 114/70 (85) 94 Room Air 10/09/17 04:00 Room Air 10/09/17 00:00 Room Air 10/08/17 20:22 36.6 95 16 129/80 (96) 93 Room Air 95 126/84 (98) 106 121/88 (99) 10/08/17 20:00 Room Air 10/08/17 16:18 36.6 90 16 138/76 (96) 98 Room Air 10/08/17 16:00 Room Air Lab Results: Results Past 24 Hours Test 10/09/17 05:40 Range/Units White Blood Count 11.24 4.8-10.8 K/uL Red Blood Count 4.49 4.2-5.4 M/uL Hemoglobin 12.7 12.0-16.0 g/dL Hematocrit 38.6 37-47 % Mean Corpuscular Volume 86.0 80-100 fL Mean Corpuscular Hemoglobin 28.3 25-34 pg Mean Corpuscular Hemoglobin Concent 32.9 32-36 g/dl RDW Standard Deviation 42.4 36.4-46.3 fL RDW Coefficient of Variation 13.6 11.5-14.5 % Platelet Count 319 130-400 K/uL Mean Platelet Volume 10.5 7.4-10.4 fL Sodium Level 139 136-145 mmol/L Potassium Level 3.7 3.5-5.1 mmol/L Chloride Level 108 98-107 mmol/L Carbon Dioxide Level 24 21-32 mmol/L Anion Gap 7.0 3-11 mmol/L Blood Urea Nitrogen 19 7-18 mg/dl Creatinine 0.54 0.60-1.20 mg/dl Est Creatinine Clear Calc Drug Dose 210.8 ml/min Estimated GFR () > 150.0 Estimated GFR (Non- 130.2 BUN/Creatinine Ratio 34.4 10-20 Random Glucose 100 70-99 mg/dl Calcium Level 8.4 8.5-10.1 mg/dl
[2017-10-09] MEDS ORDERED: LEVE500T13 PO (14:09)
--- NOTE | 2017-10-09 14:11 | Discharge Summary ---
Discharge Summary Date of Service Oct 09, 2017. Discharge Summary Admission Date: Oct 07, 2017 at 15:00 Discharge Date: Oct 09, 2017 Discharge Disposition: Home Principal Diagnosis: Frequent Falls, Possible Seizures Vs Syncope Procedures: MRI Brain: Normal study. Carotid Doppler: No hemodynamically significant stenosis seen within the carotid arteries. EEG: This EEG is essentially normal during wakefulness without evidence for focal or generalized encephalopathy and without evidence for potentially epileptogenic activity. ECHO: * There is normal left ventricular wall thickness. * The left ventricular wall motion is normal. * Left ventricular systolic function is normal. * The LV Ejection Fraction = 60-65%. * The right ventricle is mildly dilated. * The right ventricular systolic function is normal. * There is no evidence of atrial septal defect, but resolution does not allow assessment for a patent foramen ovale. * The LV diastolic function is normal. Consultations: Neurology Pending Studies/Follow-Up: Follow up with Primary Care physician on 10/15/2017 at 9:00AM Follow up with your Neurologist Colleen Max on 10/20/2017 at 9:20AM Get ZIO patch and 72 hour EEG done as outpatient Seek immediate medical attention if your symptoms reoccur or worsen Driving not permitted until cleared by your Neurologist Medication Reconciliation Continued Medications: Albuterol Hfa (Ventolin Hfa) 200 Puffs/07573 Mcg Aers 2 PUFFS INH Q6H PRN for SOB/Wheezing Amitriptyline Hcl (Elavil) 25 Mg Tab 50 MG PO HS, TAB Citalopram Hydrobromide (Celexa) 20 Mg Tab 20 MG PO DAILY, TAB Clindamycin Phosphate (Topical (Cleocin-T) 1 % Lot 1 APPLN TOP HS APPLY TO AFFECTED AREA(S) OF SKIN Fluticasone Propionate (Nasal) (Flonase Allergy Relief) 50 Mcg/Act Spr 2 SPRAYS JACKELIN DAILY Ibuprofen Tab (Advil) 200 Mg Tab 600-800 MG PO Q8 PRN for Pain, TAB Levetiracetam (Keppra) 500 Mg Tab 1 TAB PO BID for 30 Days, #60 TAB 1 Refill (This prescription has been renewed) patient did not start taking yet Magnesium Oxide (Mag-Ox) 400 Mg Tab 400 MG PO HS, TAB Meloxicam (Meloxicam) 15 Mg Tab 15 MG PO DAILY PRN for Pain Riboflavin (B-2-400) 400 Mg Cap 400 MG PO DAILY Sulindac (Clinoril) 200 Mg Tab 200 MG PO BIDM, TAB Admission Information HPI (per Admitting provider): 27 year old female who presents to the ED with frequent falls. Patient has been seen in the ED 3 times in the past 4 days. Patient describes events that she suddenly falls and wakes up on the floor not remembering falling or what happened. witnessed the event yesterday and reports that she had whole body shaking for about 10 minutes. She also had tongue biting but there was no incontinence or vomiting. When she came to, she a little slow to respond for about one minute. She then got up and walked to the couch. Patient reports she does not remember this event. She was seen in the [facility] ED yesterday for this complaint and was given an anti-seizure medication (patient is unsure of the name). She also had a head CT that was unremarkable per the patient. She was also discharged on Keppra however patient reports she did not pick the medicine up from the pharmacy yet. Patient had another unwitnessed fall at home today. She is unsure if she looses coconsciousness or strikes her head. She denies any preceding chest pain or shortness of breath. She currently has a mild frontal headache and denies photosensitivity, neck stiffness, and blurred vision. She denies any recent illnesses, fever, and chills. No abdominal pain, nausea, vomiting, or diarrhea. She denies any urinary symptoms. In the ED, labs are unremarkable and vitals are stable. Physical Exam (per Admitting): General Appearance: WD/WN, no apparent distress Head: normocephalic, atraumatic Eyes: normal inspection, PERRL, EOMI, + pertinent finding (chronic wallace discoloration noted to right eye) ENT: hearing grossly normal, + pertinent finding (mucous membranes moist) Neck: supple, no JVD, trachea midline Respiratory/Chest: lungs clear, normal breath sounds, no respiratory distress Cardiovascular: regular rate, rhythm, no edema, normal peripheral pulses Abdomen/GI: normal bowel sounds, non tender, soft, no organomegaly Extremities/Musculoskelatal: normal inspection, no calf tenderness, normal capillary refill Neurologic/Psych: no motor/sensory deficits, alert, normal mood/affect, oriented x 3 Skin: normal color, warm/dry Hospital Course Frequent falls, Possible recurrent syncopal episodes DD: seizure No rhythm issues on Telemetry Appreciate Neurology Input Continue Keppra EEG, brain MRI, Carotid Doppler: normal seizure precautions ECHO: * There is normal left ventricular wall thickness. * The left ventricular wall motion is normal. * Left ventricular systolic function is normal. * The LV Ejection Fraction = 60-65%. * The right ventricle is mildly dilated. * The right ventricular systolic function is normal. * There is no evidence of atrial septal defect, but resolution does not allow assessment for a patent foramen ovale. * The LV diastolic function is normal. Needs ZIO patch and 72 hour EEG as outpatient Anxiety/Depression continue citalopram Headaches continue amitriptyline DVT Px: SCDs Disposition: Plan to discharge home today Follow up with Primary Care physician on 10/15/2017 at 9:00AM Follow up with your Neurologist Colleen Max on 10/20/2017 at 9:20AM Get ZIO patch and 72 hour EEG done as outpatient Seek immediate medical attention if your symptoms reoccur or worsen Driving not permitted until cleared by your Neurologist Total time spent on discharge = 33 minutes This includes examination of the patient, discharge planning, medication reconciliation, and communication with other providers. Discharge Instructions Discharge Instructions Date of Service Oct 09, 2017. Admission Reason for Admission: FALLS Discharge Discharge Diagnosis / Problem: Frequent Falls, Possible Seizures Vs Syncope Discharge Goals Goal(s): Decrease discomfort, Improve function Activity Recommendations Activity Limitations: resume your previous activity Exercise/Sports Limitations: as tolerated Driving or Machine Use: Not Permitted Until clared by your Neurologist . Instructions / Follow-Up Instructions / Follow-Up Follow up with Primary Care physician on 10/15/2017 at 9:00AM Follow up with your Neurologist Colleen Max on 10/20/2017 at 9:20AM Get ZIO patch and 72 hour EEG done as outpatient Seek immediate medical attention if your symptoms reoccur or worsen Driving not permitted until cleared by your Neurologist Current Hospital Diet Patient's current hospital diet: Regular Diet Discharge Diet Recommended Diet: Regular Diet Pending Studies Studies pending at discharge: no Medical Emergencies . Who to Call and When: Medical Emergencies: If at any time you feel your situation is an emergency, please call 911 immediately. . Non-Emergent Contact Non-Emergency issues call your: Primary Care Provider, Neurologist Call Non-Emergent contact if: you have a fever, your pain is not controlled, your pain is worsening, your pain is unusual for you, your pain is concerning you, you have any medication questions Seek immediate medical attention if your symptoms reoccur or worsen . . "Provider Documentation" section prepared by Ata Lopez. . VTE Core Measure Inpt VTE Proph given/why not?: SCD's <Electronically signed by Ata Lopez MD> Signed: 10/09/17 6020 Signed: The status of this report is Signed * If report status is Draft, the document has not been finalized by the responsible provider.
[2017-10-09 14:25] VITALS: BP 126/107; PULSE 79; TEMP 36.5; O2SAT 98
== END 2017-10-09 15:07 | disposition home or self-care (01) ==
LOC: C.EDB 11:16 → C.MED 15:00 → ENRESERV 15:20 → C.MED 10-08 10:41
PROVIDERS: ADMIT Hospitalist; ATTEND Internal Medicine
DX: R56.9 Unspecified convulsions (principal); Z91.81 History of falling; F32.9 Major depressive disorder, single episode, unspecified; F41.9 Anxiety disorder, unspecified; R26.9 Unspecified abnormalities of gait and mobility; Z90.49 Acquired absence of other specified parts of digestive tract; Z87.891 Personal history of nicotine dependence; Z83.3 Family history of diabetes mellitus; Z82.5 Family history of asthma and other chronic lower respiratory diseases

== ENCOUNTER 2017-10-20 16:32 | Emergency (ER) | payer OTHER ==
[~2017-10-20] VITALS: Ht 170.2 cm; Wt 122.7 kg
[~2017-10-20 16:32] MED LIST changes: -CETI10TA10 PO; +LEVE500T13 PO; +MELO15TA4 PO; -PENI-82 PO
[2017-10-20 16:45] VITALS: TEMP 36.7; Ht 170.2 cm; Wt 122.7 kg
[2017-10-20] MEDS ORDERED: SODIUM CHLORIDE 0.9% 1000ML 1,000 ML IV STA ×2 (18:03→18:41)
[2017-10-20] MEDS ORDERED: LEVE500T13 PO (18:41)
[2017-10-20] MEDS ORDERED: DiphenhydrAMINE HCL 50 MG/ML VIAL IV STA (18:41)
[2017-10-20] MEDS ORDERED: METOCLOPRAMIDE HCL INJ 5 MG/ML 2 ML VIAL IV STA (18:41)
[2017-10-20 18:50] LABS: BASO % 0.3 %; BASO ABS # 0.03 K/uL (0-0.2); EOS % 2.6 %; EOS ABS # 0.31 K/uL (0-0.5); HEMOGLOBIN 12.4 g/dL (12.0-16.0); IG# 0.03 K/uL (0.00-0.02); LYMPH % 24.8 %; LYMPH ABS # 2.91 K/uL (1.2-3.4); MEAN CELL VOLUME 85.6 fL (80-100); MEAN CORPUSCULAR HEMOGLOBIN 28.7 pg (25-34); MEAN CORPUSCULAR HGB CONC 33.5 g/dl (32-36); MEAN PLATELET VOLUME 10.5 fL (7.4-10.4); MONO % 6.8 %; NEUT % 65.2 %; NEUT ABS # 7.64 K/uL (1.4-6.5); PLATELET COUNT 297 K/uL (130-400); RED CELL DISTRIBUTION WIDTH CV 13.5 % (11.5-14.5); WHITE BLOOD COUNT 11.72 K/uL (4.8-10.8)
[2017-10-20 18:56] VITALS: O2SAT 98
[2017-10-20 19:14] LABS: ALBUMIN 3.4 gm/dl (3.4-5.0); ALT/SGPT 25 U/L (12-78); AST/SGOT 15 U/L (15-37); BLOOD UREA NITROGEN 13 mg/dl (7-18); CALCIUM 8.2 mg/dl (8.5-10.1); CARBON DIOXIDE 25 mmol/L (21-32); CREATININE 0.62 mg/dl (0.60-1.20); GLUCOSE 98 mg/dl (70-99); LIPASE 148 U/L (73-393); POTASSIUM 3.4 mmol/L (3.5-5.1); SODIUM 139 mmol/L (136-145)
[2017-10-20 19:16] LABS: ALKALINE PHOSPHATASE 114 U/L (45-117); TOTAL PROTEIN 7.5 gm/dl (6.4-8.2)
--- NOTE | 2017-10-20 19:18 | DIAGNOSTIC IMAGING REPORT ---
CHEST ONE VIEW PORTABLE CLINICAL HISTORY: Atypical chest pain COMPARISON STUDY: 10/07/2017 FINDINGS: The cardiac and mediastinal contours are normal. There is no evidence of focal pulmonary consolidation. There is no evidence of failure. No pleural effusions are visualized.[ There is an electronic record device projected over the left upper chest. IMPRESSION: No active disease in the chest. Electronically signed by: Jovan Mckay M.D. 10/20/2017 7:16 PM Dictated Date/Time: 10/20/2017 7:16 PM
--- NOTE | 2017-10-20 19:19 | DIAGNOSTIC IMAGING REPORT ---
CT HEAD WITHOUT CONTRAST (CT) CLINICAL HISTORY: syncope COMPARISON STUDY: 10/04/2017 TECHNIQUE: Axial CT of the brain is performed from the vertex to the skull base. IV contrast was not administered for this examination. A dose lowering technique was utilized adhering to the principles of ALARA. CT DOSE: FINDINGS: No intra or extra-axial mass lesions are visualized. There is no CT evidence of acute cortical infarction. There is no evidence of midline shift. There is no acute hemorrhage. No calvarial fractures are visualized. There is no evidence of pathologic ventricular dilatation. There is no evidence of acute sinusitis IMPRESSION: No acute intracranial findings Electronically signed by: Jovan Mckay M.D. 10/20/2017 7:17 PM Dictated Date/Time: 10/20/2017 7:16 PM
--- NOTE | 2017-10-20 19:21 | DIAGNOSTIC IMAGING REPORT ---
CT OF THE CERVICAL SPINE CLINICAL HISTORY: Neck pain status post trauma COMPARISON STUDY: 10/04/2017 CT DOSE: 999.61 mGy.cm TECHNIQUE: CT scan of the cervical spine was performed from the skull base to the thoracic inlet. Images are reviewed in the axial, sagittal, and coronal planes. IV contrast was not administered for this examination. A dose lowering technique was utilized adhering to the principles of ALARA. FINDINGS: The visualized portions of the lung apices reveal no evidence of pneumothorax. The prevertebral soft tissues are normal. No fractures or subluxations are visualized. There is slight reversal of the normal cervical lordosis IMPRESSION: Slight reversal of the normal cervical lordosis. No acute fractures or traumatic subluxations identified. Electronically signed by: Jovan Mckay M.D. 10/20/2017 7:19 PM Dictated Date/Time: 10/20/2017 7:18 PM
[2017-10-20] MEDS ORDERED: CEPHALEXIN MONOHYDRATE 250 MG CAP PO ONE (20:30)
[2017-10-20] MEDS ORDERED: CEPH500C PO (21:15)
--- NOTE | 2017-10-20 21:16 | EMERGENCY ROOM VISIT NOTE ---
History Report prepared by Sharon: Destiny Pedersen Under the Supervision of: Dr. Sunil Gifford M.D. First contact with patient: 18:02 Chief Complaint: FALL Stated Complaint: FELL IN KITCHEN , HIT HEAD- WAS HERE 2WKS AGO History of Present Illness The patient is a 27 year old female who presents to the Emergency Room with complaints of an episode of fall around 8 hours ago. The patient was opening the door for her dogs when she fell. She did not bend down before falling. She hit the back of her head on the floor. She did not lose consciousness. She remembers the fall. She stayed on the ground for several minutes. She reports dizziness, lightheadedness, blurry vision, headache, and neck pain since the fall. She has not felt well enough to take care of her kids since the fall. She is nauseated which she attributes to her period. She denies any fever, chills, cough, congestion, vomiting, diarrhea, urinary symptoms, or abdominal pain. The patient was recently admitted for similar symptoms over concerns that she might be having seizures. This was her first fall since being discharged. The patient had a normal MRI and EEG. She had a follow up appointment with neurology scheduled for today which she had to cancel because she had no ride. She is currently wearing a heart monitor. The patient is currently on Keppra. She has a history of tubal ligation. Source of History: patient Onset: 8 hours ago Position: other (global) Quality: other (fall) Timing: other (episodic) Associated Symptoms: + headache, + neck pain, + nausea, No LOC, No fevers, No chills, No cough, No vomiting, No abdominal pain, No diarrhea, No urinary symptoms Note: Associated symptoms: dizziness, lightheadedness, blurry vision Review of Systems See HPI for pertinent positives and negatives. A total of ten systems were reviewed and were otherwise negative. Past Medical & Surgical Medical Problems: (1) Anxiety and depression (2) Headache Surgical Problems: (1) Cholecystectomy (2) H/O exploratory laparotomy (3) Tubal ligation status Family History Seizures UNCLE Social History Smoking Status: Never Smoker Alcohol Use: occasionally Marital Status: Housing Status: lives with family Current/Historical Medications Scheduled Amitriptyline Hcl (Elavil), 50 MG PO HS Cephalexin Monohydrate (Keflex), 500 MG PO BID Citalopram Hydrobromide (Celexa), 20 MG PO DAILY Clindamycin Phosphate (Topical (Cleocin-T), 1 APPLN TOP HS Fluticasone Propionate (Nasal) (Flonase Allergy Relief), 2 SPRAYS JACKELIN DAILY Levetiracetam (Keppra), 500 MG PO BID Riboflavin (B-2-400), 400 MG PO DAILY Sulindac (Clinoril), 200 MG PO BIDM Scheduled PRN Albuterol Hfa (Ventolin Hfa), 2 PUFFS INH Q6H PRN for SOB/Wheezing Ibuprofen Tab (Advil), 600-800 MG PO Q8 PRN for Pain Meloxicam (Meloxicam), 15 MG PO DAILY PRN for Pain Allergies Coded Allergies: Latex (Verified Allergy, Mild, RASH, 10/07/17) Physical Exam Vital Signs Date Time Temp Pulse Resp B/P (MAP) Pulse Ox O2 Delivery O2 Flow Rate FiO2 10/20/17 21:28 78 20 99/71 98 10/20/17 20:30 93 20 92/54 95 Room Air 10/20/17 19:36 75 10/20/17 18:57 83 20 120/77 97 Room Air 10/20/17 18:56 98 Room Air 10/20/17 18:56 98 Room Air 10/20/17 16:45 36.7 92 16 113/67 99 Room Air Physical Exam GENERAL: Awake, alert, well-appearing, in no distress HENT: Normocephalic, atraumatic. Dry mucous membranes. EYES: Normal conjunctiva. Sclera non-icteric. NECK: Supple. No nuchal rigidity. FROM. No JVD. RESPIRATORY: Clear to auscultation. CARDIAC: Regular rate, normal rhythm. Extremities warm and well perfused. Pulses equal. ABDOMEN: Soft, non-distended. No tenderness to palpation. No rebound or guarding. No masses. RECTAL: Deferred. MUSCULOSKELETAL: Chest examination reveals no tenderness. The back is symmetrical on inspection without obvious abnormality. There is no CVA tenderness to palpation. No joint edema. LOWER EXTREMITIES: Calves are equal size bilaterally and non-tender. No edema. No discoloration. NEURO: Normal sensorium. No sensory or motor deficits noted. Normal cerebellar function with [id number], alternating palms, [id number] SKIN: No rash or jaundice noted. Medical Decision & Procedures ER Provider Diagnostic Interpretation: Radiology results as stated below per my review and radiologist interpretation: CHEST ONE VIEW PORTABLE CLINICAL HISTORY: Atypical chest pain COMPARISON STUDY: 10/07/2017 FINDINGS: The cardiac and mediastinal contours are normal. There is no evidence of focal pulmonary consolidation. There is no evidence of failure. No pleural effusions are visualized.[ There is an electronic record device projected over the left upper chest. IMPRESSION: No active disease in the chest. Electronically signed by: Jovan Mckay M.D. 10/20/2017 7:16 PM Dictated Date/Time: 10/20/2017 7:[address] HEAD WITHOUT CONTRAST (CT) CLINICAL HISTORY: syncope COMPARISON STUDY: 10/04/2017 TECHNIQUE: Axial CT of the brain is performed from the vertex to the skull base. IV contrast was not administered for this examination. A dose lowering technique was utilized adhering to the principles of ALARA. CT DOSE: FINDINGS: No intra or extra-axial mass lesions are visualized. There is no CT evidence of acute cortical infarction. There is no evidence of midline shift. There is no acute hemorrhage. No calvarial fractures are visualized. There is no evidence of pathologic ventricular dilatation. There is no evidence of acute sinusitis IMPRESSION: No acute intracranial findings Electronically signed by: Jovan Mckay M.D. 10/20/2017 7:17 PM Dictated Date/Time: 10/20/2017 7:[address] OF THE CERVICAL SPINE CLINICAL HISTORY: Neck pain status post trauma COMPARISON STUDY: 10/04/2017 CT DOSE: 999.61 mGy.cm TECHNIQUE: CT scan of the cervical spine was performed from the skull base to the thoracic inlet. Images are reviewed in the axial, sagittal, and coronal planes. IV contrast was not administered for this examination. A dose lowering technique was utilized adhering to the principles of ALARA. FINDINGS: The visualized portions of the lung apices reveal no evidence of pneumothorax. The prevertebral soft tissues are normal. No fractures or subluxations are visualized. There is slight reversal of the normal cervical lordosis IMPRESSION: Slight reversal of the normal cervical lordosis. No acute fractures or traumatic subluxations identified. Electronically signed by: Jovan Mckay M.D. 10/20/2017 7:19 PM Dictated Date/Time: 10/20/2017 7:18 PM Laboratory Results 10/20/17 18:30 Red Blood Count 4.32, Mean Corpuscular Volume 85.6, Mean Corpuscular Hemoglobin 28.7, Mean Corpuscular Hemoglobin Concent 33.5, Mean Platelet Volume 10.5, Neutrophils (%) (Auto) 65.2, Lymphocytes (%) (Auto) 24.8, Monocytes (%) (Auto) 6.8, Eosinophils (%) (Auto) 2.6, Basophils (%) (Auto) 0.3, Neutrophils # (Auto) 7.64, Lymphocytes # (Auto) 2.91, Monocytes # (Auto) 0.80, Eosinophils # (Auto) 0.31, Basophils # (Auto) 0.03 10/20/17 18:30 Test 10/20/17 18:30 White Blood Count 11.72 K/uL (4.8-10.8) Red Blood Count 4.32 M/uL (4.2-5.4) Hemoglobin 12.4 g/dL (12.0-16.0) Hematocrit 37.0 % (37-47) Mean Corpuscular Volume 85.6 fL (80-100) Mean Corpuscular Hemoglobin 28.7 pg (25-34) Mean Corpuscular Hemoglobin Concent 33.5 g/dl (32-36) Platelet Count 297 K/uL (130-400) Mean Platelet Volume 10.5 fL (7.4-10.4) Neutrophils (%) (Auto) 65.2 % Lymphocytes (%) (Auto) 24.8 % Monocytes (%) (Auto) 6.8 % Eosinophils (%) (Auto) 2.6 % Basophils (%) (Auto) 0.3 % Neutrophils # (Auto) 7.64 K/uL (1.4-6.5) Lymphocytes # (Auto) 2.91 K/uL (1.2-3.4) Monocytes # (Auto) 0.80 K/uL (0.11-0.59) Eosinophils # (Auto) 0.31 K/uL (0-0.5) Basophils # (Auto) 0.03 K/uL (0-0.2) RDW Standard Deviation 42.0 fL (36.4-46.3) RDW Coefficient of Variation 13.5 % (11.5-14.5) Immature Granulocyte % (Auto) 0.3 % Immature Granulocyte # (Auto) 0.03 K/uL (0.00-0.02) Urine Color DK YELLOW Urine Appearance CLOUDY (CLEAR) Urine pH 6.0 (4.5-7.5) Urine Specific [place] 1.014 (1.000-1.030) Urine Protein TRACE (NEG) Urine Glucose (UA) NEG (NEG) Urine Ketones NEG (NEG) Urine Occult Blood 3+ (NEG) Urine Nitrite NEG (NEG) Urine Bilirubin NEG (NEG) Urine Urobilinogen NEG (NEG) Urine Leukocyte Esterase SMALL (NEG) Urine WBC (Auto) 10-30 /hpf (0-5) Urine RBC (Auto) >30 /hpf (0-4) Urine Hyaline Casts (Auto) 1-5 /lpf (0-5) Urine Epithelial Cells (Auto) >30 /lpf (0-5) Urine Bacteria (Auto) NEG (NEG) Anion Gap 7.0 mmol/L (3-11) Est Creatinine Clear Calc Drug Dose 186.8 ml/min Estimated GFR () 144.2 Estimated GFR (Non- 124.4 BUN/Creatinine Ratio 20.6 (10-20) Lactic Acid Level 1.5 mmol/L (0.4-2.0) Calcium Level 8.2 mg/dl (8.5-10.1) Magnesium Level 1.9 mg/dl (1.8-2.4) Total Bilirubin 0.2 mg/dl (0.2-1) Direct Bilirubin < 0.1 mg/dl (0-0.2) Aspartate Amino Transf (AST/SGOT) 15 U/L (15-37) Alanine Aminotransferase (ALT/SGPT) 25 U/L (12-78) Alkaline Phosphatase 114 U/L (45-117) Total Creatine Kinase 39 U/L (26-192) Troponin I < 0.015 ng/ml (0-0.045) Total Protein 7.5 gm/dl (6.4-8.2) Albumin 3.4 gm/dl (3.4-5.0) Lipase 148 U/L (73-393) Date/Time Source Procedure Growth Status 10/20/17 18:30 Urine , Clean Catch Urine Culture - Final MORE THAN THREE TYPES OF ORGANISMS IL... Complete Laboratory results reviewed by me Medications Administered Medications (Trade) Dose Ordered Sig/Bjorn Route Start Time Stop Time Status Last Admin Dose Admin Sodium Chloride 1,000 ml @ 999 mls/hr Q1H1M STAT IV 10/20/17 18:03 10/20/17 19:03 DC 10/20/17 18:03 999 MLS/HR Sodium Chloride 1,000 ml @ 999 mls/hr Q1H1M STAT IV 10/20/17 18:41 10/20/17 19:41 DC 10/20/17 18:59 999 MLS/HR Metoclopramide HCl (Reglan Inj) 10 mg NOW STAT IV 10/20/17 18:41 10/20/17 18:42 DC 10/20/17 19:00 10 MG Diphenhydramine HCl (Benadryl Inj) 25 mg NOW STAT IV 10/20/17 18:41 10/20/17 18:42 DC 10/20/17 19:00 25 MG Cephalexin Monohydrate (Keflex Cap) 500 mg NOW ONCE PO 10/20/17 20:30 10/20/17 20:31 DC 10/20/17 20:29 500 MG ECG Indication: other (fall) Rate (beats per minute): 81 Rhythm: sinus rhythm (with sinus arrhythmia) Findings: no acute ischemic change, other (normal axis) ED Course 1804: The patient was evaluated in room C7. A complete history and physical exam was performed. 2032: I reevaluated the patient. I discussed results and discharge instructions : She verbalized understanding and agreement. The patient is ready for discharge. Medical Decision I reviewed the patient's past medical history, medications, and the nursing notes as described above. Differential diagnosis: syncope vasovagal vs orthostatic, arrhythmia, dehydration, electrolyte abnormality, seizure, pneumonia, bronchitis, UTI. The patient is a 27-year-old woman with a past medical history of recent admission for syncopal episodes versus seizure disorder with unremarkable workup including MRI, spot EEG, echo, and telemetry monitoring to emergency department after having a syncopal episode at 10 AM this morning per history of present illness. Patient presented she did not come the emergency department in the morning because she is not allowed to drive and did not have anyone to take care of her kids. However her was able to take off work to bring her to the emergency department this evening. Of note she did have follow with neurology today after her recent admission to arrange for likely continuous EEG monitoring however again she did not have a ride and so did not go to her appointment. Arrival the patient is well-appearing, no acute distress, afebrile stable vital signs. She is neuro intact including normal cerebellar function with [id number]-[id number], alternating palms, [id number]. WBC marginally elevated to 11. Lactate within normal limits. Chemistry unremarkable. Although BUN/Cr creatinine>20 suggesting mild dehydration. UA with large amount of epithelial cells however with elevated WBC and LE positive. Given the patient's episode is reasonable to treat the patient for a UTI while cultures are pending. CXR, CT head and Cspine negative. The patient's clinically dry exam and supportive labs suggesting mild dehydration in the setting of UTI the patient's episode is likely related to a vasovagal/ orthostatic syncope/near-syncope unlikely to be seizure as the patient reports that she was alert and oriented throughout the whole episode. Unlikely to have emergent process at this time. Patient counseled on the importance of planning ahead and ensuring that she does not miss her follow-up appointments with her specialists. Findings and plan for follow-up reviewed with patient. Patient agreeable and d/c'd per discharge instructions. Head Trauma GCS Score: 15 Medication Reconcilliation Current Medication List: was personally reviewed by me Blood Pressure Screening Patient's blood pressure: Normal blood pressure Blood pressure disposition: Did not require urgent referral Impression Primary Impression: Syncope and collapse Additional Impression: UTI (urinary tract infection) Scribe Attestation The scribe's documentation has been prepared under my direction and personally reviewed by me in its entirety. I confirm that the note above accurately reflects all work, treatment, procedures, and medical decision making performed by me. Departure Information Dispostion Home / Self-Care Prescriptions Cephalexin Monohydrate (Keflex) 500 Mg Cap 500 MG PO BID for 7 Days, #14 CAP Prov: Sunil Gifford M.D. 10/20/17 Referrals Jose Garcia M.D. (PCP) Patient Instructions Fainting (Syncope) - [facility], [facility], Syncope Causes Additional Instructions Please follow up with your primary care physician in the next 1-3 days as well as with your neurologist as scheduled for re-evaluation. Your symptoms are most likely due to passing out due to dehydration possibly related to a urinary tract infection. Otherwise, your exam, EKG, chest xray, CT scan, and lab results did not show signs of an emergent condition at this time. Keflex as directed. Drink plenty of fluids to ensure hydration. Return to the emergency department for worsening symptoms as described in the accompanying instructions. Problem Qualifiers
[2017-10-20 21:28] VITALS: BP 99/71; PULSE 78; O2SAT 98
== END 2017-10-20 21:29 | disposition home or self-care (01) ==
LOC: C.EDB 16:34 → C.EDC 21:29
DX: R55 Syncope and collapse (principal); N39.0 Urinary tract infection, site not specified; F32.9 Major depressive disorder, single episode, unspecified; W19.XXXA Unspecified fall, initial encounter; W22.8XXA Striking against or struck by other objects, initial encounter; Y93.89 Activity, other specified; Y99.8 Other external cause status; Z98.51 Tubal ligation status; Z90.49 Acquired absence of other specified parts of digestive tract; Z98.890 Other specified postprocedural states; Z82.0 Family history of epilepsy and other diseases of the nervous system; Z79.899 Other long term (current) drug therapy

== ENCOUNTER 2018-02-23 21:20 | Emergency (ER) | payer OTHER ==
[~2018-02-23] VITALS: Ht 165.1 cm; Wt 116.0 kg
[~2018-02-23 21:20] MED LIST changes: -MAGN400T6 PO; +MELO-83 PO; -MELO15TA4 PO
[2018-02-23 21:31] VITALS: TEMP 36.7; Ht 165.1 cm; Wt 116.0 kg
[2018-02-23] MEDS ORDERED: IBUPROFEN 200 MG TAB PO STA (22:01)
[2018-02-23] MEDS ORDERED: HYDROCODONE/ACETAMIN 5/325MG TAB PO STA (22:01)
--- NOTE | 2018-02-23 22:36 | DIAGNOSTIC IMAGING REPORT ---
R ANKLE MIN 3 VIEWS ROUTINE, R FOOT MIN 3 VIEWS ROUTINE HISTORY: 27 years-old Female Lateral right ankle pain acute right foot and ankle pain COMPARISON: None available TECHNIQUE: 3 views of the right ankle and 3 views of the right foot FINDINGS: ANKLE: Moderate circumferential soft tissue swelling about the ankle. Minimal cortical irregularity involves the distal portion of the lateral malleolus. No acute displaced fracture identified. Small joint effusion. Moderate plantar enthesophyte about the calcaneus. No opaque foreign body. Note is made of an os trigonum. 9 mm bone island of the distal tibial metaphysis. FOOT: Soft tissue swelling about the ankle and foot without acute fracture, dislocation or opaque foreign body. No stress fracture. IMPRESSION: 1. Moderate soft tissue swelling about the ankle without acute displaced fracture or dislocation identified. 2. Minimal cortical irregularity of the distal most aspect of the lateral malleolus may reflect a subtle acute nondisplaced fracture. Correlate with point tenderness. The above report was generated using voice recognition software. It may contain grammatical, syntax or spelling errors. Electronically signed by: Benji Avelar M.D. 02/23/2018 10:34 PM Dictated Date/Time: 02/23/2018 10:31 PM
--- NOTE | 2018-02-23 22:48 | EMERGENCY ROOM VISIT NOTE ---
ED Visit Note First contact with patient: 21:41 CHIEF COMPLAINT: Ankle pain HISTORY OF PRESENT ILLNESS: This patient is a 27-year-old female presents to the emergency department complaining of pain over the right ankle over the last several weeks. The patient missed a step 3 weeks ago and twisted her ankle inwards. She was seen at [facility]. Imaging was performed. There were no fractures found. The patient continues to have pain with weightbearing. She is also complaining of pain over the dorsal aspect of the foot. She has sprained this ankle many times. REVIEW OF SYSTEMS: A 6 system review of systems was completed with positives and pertinent negatives listed in the HPI. ALLERGIES: No known drug allergies MEDICATIONS: Personally reviewed PMH: Seizures, hypertension, asthma SOCIAL HISTORY: Positive for tobacco and occasional alcohol use PHYSICAL EXAM: Vital Signs: Reviewed Nurse's notes, vital signs stable. GENERAL : 27-year-old female, no acute distress, but appears in pain, well-developed, well-nourished. MENTAL STATUS: Alert, oriented to person place and time, and cooperative. MUSCULOSKELETAL: The right ankle is swollen and tender over the lateral malleolus, but the skin is intact and there is no ligamentous instability. There is mild fifth metatarsal tenderness. There is mild tenderness over the dorsum of the foot. There is no calf or tibia/fibular tenderness. There is no visual deformity. The foot and toes are warm and well- perfused. Dorsalis pedis pulse 2+. Sensation to pain and light touch is intact. Capillary refill less than 2 seconds. EMERGENCY DEPARTMENT COURSE: I examined the patient. The patient was medicated with Motrin and Percocet. X-rays of the right ankle and foot were reviewed by myself and read by radiology IMPRESSION: 1. Moderate soft tissue swelling about the ankle without acute displaced fracture or dislocation identified. 2. Minimal cortical irregularity of the distal most aspect of the lateral malleolus may reflect a subtle acute nondisplaced fracture. Correlate with point tenderness. The above report was generated using voice recognition software. It may contain grammatical, syntax or spelling errors. Electronically signed by: Benji Avelar M.D. 02/23/2018 10:34 PM Dictated Date/Time: 02/23/2018 10:31 PM The status of this report is Signed. Draft = Not yet reviewed or approved by Radiologist. Signed = Reviewed and approved by Radiologist. <AttendingPhy></AttendingPhy> <FamilyPhy>Jose Garcia M.D.</FamilyPhy> < PrimaryPhy>Jose Garcia M.D.</PrimaryPhy> <UnitNumber>[id number]</UnitNumber > <VisitNumber>[id number]</VisitNumber> <PatientName>TARIK MATUTE</ PatientName> <DateOfBirth>1990</DateOfBirth> <Location>[facility]</Location> < ServiceDate>02/23/18</ServiceDate> <MNE>ESINDI</MNE> <OrderingPhy>Alicia Decker PA-C</OrderingPhy FOOT: Soft tissue swelling about the ankle and foot without acute fracture, dislocation or opaque foreign body. No stress fracture. IMPRESSION: 1. Moderate soft tissue swelling about the ankle without acute displaced fracture or dislocation identified. 2. Minimal cortical irregularity of the distal most aspect of the lateral malleolus may reflect a subtle acute nondisplaced fracture. Correlate with point tenderness. The above report was generated using voice recognition software. It may contain grammatical, syntax or spelling errors. Electronically signed by: Benji Avelar M.D. 02/23/2018 10:34 PM Dictated Date/Time: 02/23/2018 10:31 PM The patient was placed in a posterior short leg Ortho-Glass splint. Neurovascular status was rechecked and intact. She is instructed on the use of crutches. Discharge instructions were thoroughly reviewed, and she was discharged in good condition DIAGNOSIS: Possible subtle right ankle fracture versus severe sprain DISCHARGE INSTRUCTIONS: Please keep the Ortho-Glass splint in place. Do not get it wet. Use crutches to get around. Minimal weightbearing on the right ankle. Apply ice for 20 minute intervals over the next 48 hours. Elevated as much as possible. Ibuprofen 600 mg every 6 hours Percocet 1-2 tabs every 4 hours for severe pain. Do not drink alcohol or drive while taking this medication. This may be taken with ibuprofen, but avoid Tylenol. Please call the orthopedic doctor in the morning for a follow-up appointment. Please do not hesitate to return to the emergency department with any new, worsening or concerning symptoms If there is any difficulty getting an orthopedic appointment, please call back to the emergency department. [phone] It was a pleasure participating in your care today This chart was completed in part utilizing [employer] Speech Voice Recognition software. Attempts were made to minimize the grammatical errors, random word insertions, pronoun errors and incomplete sentences. Any formal questions or concerns about the content, text or information contained within the body of this dictation should be directly addressed to the provider for clarification.
[2018-02-23] MEDS ORDERED: OXYC-57 PO (22:51)
[2018-02-23 23:02] VITALS: BP 133/76; PULSE 80; O2SAT 98
== END 2018-02-23 23:03 | disposition home or self-care (01) ==
LOC: C.EDB 21:21 → C.EDD 23:03
DX: S99.911A Unspecified injury of right ankle, initial encounter (principal); X50.1XXA Overexertion from prolonged static or awkward postures, initial encounter; Z72.0 Tobacco use

== ENCOUNTER → 2018-04-28 | Outpatient (CLI) | payer OTHER ==
[~2018-04-28] MED LIST changes: -AMIT25TA9 PO; +CHOL1000 PO; -LEVE500T13 PO; +LEVE750T PO; -MELO-83 PO; -RIBOCAP PO; -SULI200T4 PO
--- NOTE | 2018-04-28 08:32 | DIAGNOSTIC IMAGING REPORT ---
(BARIUM SWALLOW) ESOPHAGUS CLINICAL HISTORY: GLOBULUS SENSATION COMPARISON STUDY: None. FLUOROSCOPY TIME: 1.1 minutes. 23 fluoroscopic spot images. FINDINGS: The patient is swallowed barium without difficulty. The contours of the hypopharynx are within normal limits. The esophagus is normal in course, caliber, motility. No hiatus hernia. No gastroesophageal reflux. The barium tablet passed without difficulty. IMPRESSION: Normal barium swallow. Electronically signed by: Terence Giles M.D. 04/28/2018 8:31 AM Dictated Date/Time: 04/28/2018 8:29 AM
== END | disposition home or self-care (01) ==
LOC: C.RAD 07:47
PROVIDERS: ATTEND Student in an Organized Health Care Education/Training Program
DX: F45.8 Other somatoform disorders (principal)

== ENCOUNTER 2024-06-15 17:21 | Inpatient (IN) ==
[2024-06-15 18:11] LABS: Basophils # (auto) 0.06 K/uL (0.00-0.20); Basophils % (auto) 0.5 %; Eosinophils # (auto) 0.14 K/uL (0.00-0.50); Eosinophils % (auto) 1.3 %; Hematocrit (blood only) 39.8 % (37.0-47.0); Hemoglobin 13.5 g/dl (12.0-16.0); Immature Granulocytes # (auto) 0.04 K/uL (0.01-0.20); Immature Granulocytes % (auto) 0.4 %; Lymphocytes # (auto) 2.24 K/uL (1.20-3.40); Lymphocytes % (auto) 20.3 %; Mean Corpuscular Hemoglobin 29.9 pg (25.0-34.0); Mean Corpuscular Hgb Conc 33.9 g/dL (32.0-36.0); Mean Corpuscular Volume 88.1 fL (80.0-100.0); Mean Platelet Volume 11.5 fL (9.4-12.4); Monocytes # (auto) 0.77 K/uL (0.11-0.59); Neutrophils # (auto) 7.77 K/uL (1.40-6.50); Neutrophils % (auto) 70.5 %; Platelet Count 290 K/uL (130-400); RDW Coefficient of Variation 12.7 % (11.5-14.5); RDW Standard Deviation 41.1 fL (36.4-46.3); Red Blood Count 4.52 M/uL (4.20-5.40); White Blood Count 11.02 K/ul (4.8-10.8)
--- NOTE | 2024-06-15 18:12 | Emergency Department Note ---
Impression & Plan Depression, Anxiety, Suicidal ideation ED Provider Note ED Provider Note NAME: TARIK MATUTE AGE:33 SEX: Female : 1990 ARRIVES VIA: Private vehicle INFORMANT: Patient ED PROVIDER(s): Carola Bullard DO CHIEF COMPLAINT: Mental health evaluation HPI: This is a 33 yo female who presents emergency department for mental health evaluation. Patient states she has a hx of anxiety/depression. No prior suicide attempt. She states she has had recent worsening depression and suicidal thoughts with plan to jump off a bridge or drive her car into a tree. Remote hx of inpatient treatment. She denies paranoia and hallucinations. PAST MEDICAL HISTORY:See Below PAST SURGICAL HISTORY:See Below FAMILY HISTORY:See Below SOCIAL HISTORY:See Below HOME MEDICATIONS:See Below ALLERGIES:See Below VITALS:See Below PHYSICAL EXAMINATION: GENERAL: alert, well appearing, well nourished, no distress, non-toxic EYE EXAM: normal conjunctiva, PERRL and EOM's grossly intact OROPHARYNX: no exudate, no erythema, lips, buccal mucosa, and tongue normal and mucous membranes are moist NECK: supple, no nuchal rigidity, no adenopathy, non-tender LUNGS: Clear to auscultation. Normal chest wall mechanics, no w/r/r HEART: no murmurs, S1 normal and S2 normal ABDOMEN: abdomen soft, non-tender, normo-active bowel sounds, no masses, no rebound or guarding. SKIN: no rashes, petechiae, orbruising UPPER EXTREMITIES: upper extremities are grossly normal. FROM, nml pulses b/l. LOWER EXTREMITIES: No pitting edema. FROM, nml pulses b/l. NEURO EXAM: Normal sensorium, cranial nerves II-XII grossly intact, normal speech, no facial droop,nogross weakness of arms, no gross weakness of legs. Gross sensation intact. No ataxia. Vital Signs: reviewed and remarkable Differential Diagnosis: mood disorder, suicidal ideation, anxiety, depression, substance abuse, toxidrome, infection, hypoglycemia, electrolyte abnormalities, ICH as well as others were considered. MEDICAL DECISION MAKING: This is a 33-year-old female who presents for mental health evaluation due to worsening depression and suicidal ideation. Labs and urine collected and sent per protocol. UA abnormal however suboptimal collection and patient denied any urinary symptoms, I do not suspect acute UTI. Patient seen and evaluated by case management and referred for additional inpatient mental health treatment. Patient accepted to [facility] [address] 201 signed by me. Consultation(s): 1899: Patient seen and evaluated by case management, referred for additional inpatient mental health treatment. ER Treatment Provided: See below Diagnostics Interpreted By Me: -Laboratory studies: As stated above and show below. Triage Nursing Note Reviewed Prior/Outside Records Reviewed Past Med/Surg History Problem List (Updated 06/15/24 @ 18:12 by Carola Bullard, DO) Suicidal ideation (Acute) Anxiety (Acute) Depression (Acute) Fatigue Somnolence, daytime Depression with suicidal ideation Major depression Obesity (BMI 30-39.9) (Chronic) Ankle instability Ankle sprain Chest pain syndrome Nausea Irregular menstrual cycle Gastroparesis (Acute) Esophageal dysphagia Migraines Asthma inhaler prn Anxiety and depression (Chronic) Medical History Seizures diagnosed in 2018--per pt when asked what kind of seizure she stated "I dont know I was just told I passed out in my mom's kitchen"--only ever had the 1, no neurologist, no meds Surgical History History of ankle surgery Dr. Montaño 02/04/24 - R ANKLE S/P ligament repair Hx of dilation and curettage 12/26 History of esophagogastroduodenoscopy (EGD) History of wisdom tooth extraction H/O section x 2 History of cholecystectomy (2012) H/O exploratory laparotomy "lysis of adhesions" Tubal ligation status Family History Uncle Seizures Grandmother (Paternal) Breast cancer Grandmother (Maternal) Heart disease Myocardial infarction Grandfather (Maternal) Diabetes Mother Diabetes Father Depression Other No family history of adverse response to anesthesia Denies family history of Ovarian cancer Prostate cancer Lung cancer Colorectal cancer Social History Smoking Status: Never smoker Tobacco Type: Cigarettes Age Started Using Tobacco: 19; Age Quit Using Tobacco: 25; Second Hand Exposure: No; Do You Dip or Chew Tobacco: No; Hx Alcohol Use: No Hx Substance Use: No Preferred Language: Italian Communication Ability: Effective Visual Impairment: No Limitations Hearing Ability: Normal Machine Bobbin Winder Required: No Beliefs That Will Affect Care: None marital status: Current Living Situation: Family Current Living Situation Comment: Spouse and 2 children, and father current occupational status: employed current occupation: [employer] How many Children do You have: 2 Feels Safe at Home: Yes Diet: regular during the past year weight has: decreased > 10 lbs Dental Care, Regularly: Yes Physical Activity Frequency: 3-4 Times per Week Physical Activity Frequency Comment: Walk Seatbelt Use: always Gender Identity: Female Assistive Devices: Glasses Allergies Allergies Allergy/AdvReac Type Severity Reaction Status Date / Time latex Allergy Mild RASH Verified 06/14/24 15:23 No Known Drug Allergies Allergy Mild Unverified 06/14/24 15:23 Home Meds Home Medications Medication Instructions Recorded Confirmed divalproex 250 mg tablet,delayed 250 mg PO 1XD 06/15/24 06/15/24 release pantoprazole 40 mg tablet,delayed 40 mg PO 1XD 06/15/24 06/15/24 release Previous Rx's Medication Instructions Recorded magnesium oxide 400 mg (241.3 mg 400 mg PO DAILY 30 days #30 tabs 04/29/24 magnesium) tablet riboflavin (vitamin B2) 400 mg 400 mg PO DAILY 30 days #30 tabs 04/29/24 tablet rimegepant 75 mg disintegrating 75 mg PO DAILY PRN migraine 04/29/24 tablet (Nurtec ODT) headache 30 days #8 tabs escitalopram oxalate 10 mg tablet 20 mg (2 x 10 mg) PO DAILY #90 tabs 05/03/24 Results & Data (ED) Vital Signs Vital Signs - 24 hr 06/15/24 17:25 06/15/24 18:14 Temperature 36.7 C Temperature Source Temporal Artery Scan Pulse Rate 81 Pulse Rate [Apical] 83 Pulse Rhythm [Apical] Regular Pulse Strength [Apical] Normal Respiratory Rate 18 22 Respiratory Effort / Characteristics Non-Labored Spontaneous Non-Labored Spontaneous Respiratory Depth Normal Normal Respiratory Pattern Regular Regular Blood Pressure 139/83 Blood Pressure [Left Arm] 137/81 Blood Pressure Mean 101 Blood Pressure Mean [Left Arm] 99 Blood Pressure Position [Left Arm] Sitting Pulse Oximetry 97 97 Oxygen Delivery Method Room Air Room Air Sepsis Recent Fever Within 48 Hours No Sepsis New/Unexplained Change in Mental Status N/A Sepsis Action Taken by Nursing No Action Required Laboratory Data 06/15/24 17:45 06/15/24 17:45 Lab Results 06/15/24 06/15/24 06/15/24 Range/Units 17:38 17:45 19:40 WBC 11.02 H (4.8-10.8) K/ul RBC 4.52 (4.20-5.40) M/uL Hgb 13.5 (12.0-16.0) g/dl Hct 39.8 (37.0-47.0) % MCV 88.1 (80.0-100.0) fL MCH 29.9 (25.0-34.0) pg MCHC 33.9 (32.0-36.0) g/dL RDW Std Deviation 41.1 (36.4-46.3) fL RDW Coeff of Laura 12.7 (11.5-14.5) % Plt Count 290 (130-400) K/uL MPV 11.5 (9.4-12.4) fL Immature Gran % (Auto) 0.4 % Neut % (Auto) 70.5 % Lymph % (Auto) 20.3 % Moody % (Auto) 7.0 % Eos % (Auto) 1.3 % Baso % (Auto) 0.5 % Neut # (Auto) 7.77 H (1.40-6.50) K/uL Lymph # (Auto) 2.24 (1.20-3.40) K/uL Moody # (Auto) 0.77 H (0.11-0.59) K/uL Eos # (Auto) 0.14 (0.00-0.50) K/uL Baso # (Auto) 0.06 (0.00-0.20) K/uL Immature Gran # (Auto) 0.04 (0.01-0.20) K/uL Sodium 139 (136-145) mmol/L Potassium 3.6 (3.5-5.1) mmol/L Chloride 107 (98-107) mmol/L Carbon Dioxide 23 (21-32) mmol/L Anion Gap 9 (3-11) BUN 12 (6-23) mg/dl Creatinine 0.50 L (0.6-1.2) mg/dl Est Cr Clr Drug Dosing 193.6 ml/min Est GFR ( Amer) 148.4 ml/min Est GFR (Non-Af Amer) 128.1 ml/min BUN/Creatinine Ratio 24.0 H (10-20) Glucose 88 (70-99(Fasting)) mg/dl Calcium 9.0 (8.6-10.3) mg/dl Total Bilirubin 0.5 (0.2-1.0) mg/dl AST 17 (13-39) U/L ALT 10 (7-52) U/L Alkaline Phosphatase 80 (34-104) U/L Total Protein 7.6 (6.0-8.3) gm/dl Albumin 4.5 (3.4-5.0) gm/dl Globulin 3.1 (2.5-4.0) gm/dl Albumin/Globulin Ratio 1.5 (0.9-2) TSH 0.890 (0.300-4.500) uIu/ml Urine Color Dark Yellow Urine Appearance Cloudy A (Clear) Urine pH 6.0 (4.5-7.5) Ur Specific [place] 1.026 (1.000-1.030) Urine Protein Trace H (Negative) Urine Glucose (UA) Negative (Negative) Urine Ketones 2+ H (Negative) Urine Blood Negative (Negative) Urine Nitrite Negative (Negative) Urine Bilirubin 1+ H (Negative) Urine Urobilinogen Negative (Negative) Ur Leukocyte Esterase Trace H (Negative) Urine WBC (Auto) 11-20 H (0-5) /hpf Urine RBC (Auto) 3-5 H (0-2) /hpf U Hyaline Cast (Auto) 0-2 (0-2) /lpf U Epithel Cells (Auto) 11-20 H (0-2) /hpf Urine Bacteria (Auto) 2+ H (None Seen) Urine Mucus Present A (None Prsent) Salicylates < 3.0 L (3.0-30) mg/dl Urine Opiates Screen Neg (Neg) Ur Methadone, Qual Neg (Neg) Urine Fentanyl Screen Neg (Neg) Acetaminophen < 3 L (10-30) ug/ml Urine Barbiturates Neg (Neg) Ur Phencyclidine (PCP) Neg (Neg) U Amphetamin/Meth Scrn Neg (Neg) MDMA (Ecstasy) Screen Neg (Neg) U Benzodiazepines Scrn Neg (Neg) Ur Cocaine Metabolite Neg (Neg) U Marijuana (THC) Screen Neg (Neg) Ethyl Alcohol mg/dL < 10.0 (<10.0) mg/dl SARS-CoV-2, RNA, NAAT NEGATIVE (NEGATIVE) Administered Medications Divalproex Sodium (Divalproex Delay Release 250 Mg Tabec) 250 mg PO BID AGUS Stop: 07/15/24 21:44 Last Admin: 06/15/24 22:28 Dose: 250 mg Documented By: DMT Magnesium Oxide (Magnesium Oxide 400 Mg Tab) 400 mg PO HS AGUS Stop: 07/15/24 21:59 Last Admin: 06/15/24 22:28 Dose: 400 mg Documented By: DMT Discontinued Medications Acetaminophen (Acetaminophen 500 Mg Tab) 1,000 mg PO NOW STA Stop: 06/15/24 20:08 Last Admin: 06/15/24 20:25 Dose: 1,000 mg Documented By: KARSON Ibuprofen (Ibuprofen 200 Mg Tab) 400 mg PO NOW STA Stop: 06/15/24 20:08 Last Admin: 06/15/24 20:26 Dose: 400 mg Documented By: KARSON Ondansetron HCl (Ondansetron 4 Mg Od Tab) 4 mg PO NOW STA Stop: 06/15/24 20:08 Last Admin: 06/15/24 20:25 Dose: 4 mg Documented By: KARSON Discharge Plan Visit Data Chief Complaint: Mental Health Evaluation Stated Complaint: HARMING THOUGHTS ED Provider: Carola Bullard Discharge Problem: Depression, Anxiety, Suicidal ideation Patient Disposition: Admitted As Inpatient Discharge Instructions Interventions: ED Discharge Assessment Last Done: 06/15/24 21:10
[2024-06-15 18:26] LABS: Albumin Globulin Ratio 1.5 (0.9-2); Albumin Level 4.5 gm/dl (3.4-5.0); Bilirubin,Total 0.5 mg/dl (0.2-1.0); Creatinine Clr Calc Pharmacy 193.6 ml/min; Est GFR (African American) 148.4 ml/min; Est GFR (Non-African American) 128.1 ml/min; Globulin 3.1 gm/dl (2.5-4.0); Potassium 3.6 mmol/L (3.5-5.1); Total Protein 7.6 gm/dl (6.0-8.3)
[2024-06-15 18:32] LABS: Acetaminophen < 3 ug/ml (10-30); Salicylate < 3.0 mg/dl (3.0-30)
[2024-06-15 18:34] LABS: Appearance Urine Cloudy (Clear); Bacteria Urine Automated 2+ (None Seen); Bilirubin Urine 1+ (Negative); Blood Urine Negative (Negative); Cast Urine Automated 0-2 /lpf (0-2); Color Urine Dark Yellow; Glucose Urine UA Negative (Negative); Ketones Urine 2+ (Negative); Leukocyte Esterase Urine Trace (Negative); Mucus Urine Present (None Prsent); Nitrite Urine Negative (Negative); Protein Urine Trace (Negative); Specific Gravity Urine 1.026 (1.000-1.030); Urobilinogen Urine Negative (Negative)
[2024-06-15 18:37] LABS: Amphetamines+Metham, Urine Neg (Neg); Barbiturates, Urine Neg (Neg); Benzodiazepine, Urine Neg (Neg); Cocaine, Urine Neg (Neg); Fentanyl, Urine Neg (Neg); MDMA (Ecstacy), Urine Neg (Neg); Marijuana, Urine Neg (Neg); Methadone, Urine Neg (Neg); Opiate, Urine Neg (Neg); Phencyclidine, Urine Neg (Neg)
[2024-06-15 18:38] LABS: Thyroid Stimulating Hormone 0.89 uIu/ml (0.300-4.500)
[2024-06-15] MEDS: ACETAMINOPHEN 500 MG TAB PO STA (20:25)
[2024-06-15] MEDS: ONDANSETRON 4 MG OD TAB PO STA (20:25)
[2024-06-15] MEDS: IBUPROFEN 200 MG TAB PO STA (20:26)
[2024-06-15] MEDS ORDERED: hydrOXYzine HCl 25 MG TAB PO PRN ×2 (21:53)
[2024-06-15] MEDS ORDERED: SODIUM CHLORIDE 0.65% NA SOLN 45 ML (OCEAN) PRN (21:53)
[2024-06-15] MEDS ORDERED: MAGNESIUM HYDROXIDE SUSP 30 ML UDC PO PRN (21:53)
[2024-06-15] MEDS ORDERED: BISMUTH SUBSALICYLATE LIQD 236 ML PO PRN (21:53)
[2024-06-15] MEDS ORDERED: ALUMINUM/MAGNESIUM SUSP 30 ML UDC PO PRN (21:53)
[2024-06-15] MEDS ORDERED: NON-FORMULARY MEDICATION PO PRN (22:06)
[2024-06-15] MEDS: DIVALPROEX DELAY RELEASE 250 MG TABEC PO SCH (22:28)
[2024-06-15] MEDS: MAGNESIUM OXIDE 400 MG TAB PO SCH (22:28)
[2024-06-16] MEDS: ESCITALOPRAM OXALATE 20 MG TAB PO SCH (08:46)
[2024-06-16] MEDS: PANTOprazole 40 MG TAB PO SCH (08:46)
[2024-06-16] MEDS ORDERED: NON-FORMULARY PATIENT'S OWN MED PO SCH (09:00)
[2024-06-16] MEDS: CHOLECALCIFEROL 125 MCG (5,000 UNITS) TAB PO SCH (13:43)
--- NOTE | 2024-06-16 13:55 | History & Physical ---
Date of Service June 16, 2024 Impression / Recommendations Impression Kyung Araiza is in relationship, , domiciled with friends 33 y/o white female h/o depression, anxiety, migraines, gastroparesis who presents with suicidal ideation with plan to crash MV into tree in the context of relationship, social, and family stressors. She was admitted on 06/15/24 20:54 on a 201 voluntary commitment for suicidal ideation. Presentation consistent with MDD, recurrent, moderate-severe with suicidal ideation, Cluster B personality disorder. Presents multiple past MDEs with some improvement on SSRIs. Recent increase in Escitalopram and likely awaiting improvement on medications. Pt has anxious ruminations regarding self judgement (appearance and appeal). Labs reviewed: CBC, CMP, UDS, TSH, BAL B12 within expected limits; UA slight LE+; pt denies dysuria. Will start low dose Abilify 2mg HS for SSRI augmentation; medications s/e and adverse effects discussed with pt and agreeable. Concern for underlying sleep apnea and provided pt with practical recommendations to alleviate symptoms; pt plan for outpatient sleep study. Pt would benefit from outpatient CBT. Overall, I spent a total of 60 minutes with this case including review of chart records, nursing report, review of lab work, direct evaluation of the patient at bedside, counseling the patient, multidisciplinary team meeting, orders, and documentation in the electronic health record. (1) Suicidal ideation: (2) MDD (major depressive disorder), recurrent episode, severe: (3) Cluster B personality disorder: (4) Fatigue: Fatigue type: unspecified Qualified Code(s): R53.83 - Other fatigue (5) Gastroparesis: (6) Migraines: Migraine type: chronic migraine (15 or more days per month) without aura Status migrainosus presence: without status migrainosus Plan 06/16/24:The patient was admitted to the [facility] ([facility] inpatient mental health unit) on q15 min checks (behavioral with suicide precautions) for safety. The patient will participate in group, recreational, and milieu therapies and will be offered additional individual and family sessions as clinically appropriate. Continue home escitalopram 20 mg daily for depression Continue valproic acid 250 mg twice daily for migraines Start aripiprazole 2 mg at bedtime for SSRI augmentation Start hydroxyzine 50 mg at bedtime for insomnia Start sumatriptan 25 mg twice daily as needed for migraines Start vitamin D 5000 units daily Labs: A1c/lipid profile/vitamin D Administer Marquez borderline personality screener and VENU-7 Risk Factors Assessment Do You Have Access To A Gun?: No Protective Factors Assessment Employed: Yes ([employer]) Psychiatric History Identifying Data Kyung Araiza is in relationship, , domiciled with friends 33 y/o white female h/o depression, anxiety, migraines, gastroparesis who presents with suicidal ideation with plan to crash MV into tree in the context of relationship, social, and family stressors. She was admitted on 06/15/24 20:54 on a 201 voluntary commitment for suicidal ideation. Chief Complaint "Worsening depression" History of Present Illness Patient complains of increased suicidal ideation and mood changes. Reports stressors of fianc talking to his ex and him getting a DUI with a potential 90- day penitentiary sentence. Additionally her children is with her father and they report not wanting to talk to her because she is "pushing them away". Reports being on Lexapro for 5 years and initially worked and then was increased to 20 mg by outpatient PCP little over a month ago. Complains of anxious ruminations "worrying about anything". Anxiety involves thoughts of self judgment about if she is fat or others will accept her. Denies having a significant depressive episode since then until now. She complains of 2-month period of depressed mood, unable to enjoy activities, loss of interest, poor concentration, lack of motivation, excessive guilt, increased fatigue, increased racing thoughts, daily crying spells. Previously enjoyed four-wheel writing and spending time with her family however no longer derives pleasure from this. Denies changes in appetite. Reports SI thoughts have been daily for the last week. Past psychiatric medications include Lexapro 20 mg; denies others. Reports past inpatient stay at [place] in 2015 for depression. Father mother and brother have depression and treated; unknown medications. Concern for anger problems in father. No family history of completed suicide. Social history: Denies access to guns. Has 2 children (12 and 10) who are with their father. Past marriage of 8 years and currently . Sexually active and heterosexual. 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 Highest level of education was high school completion. Grew up in [place]. Father was on [employer] and mother did not work. Parents . Denies alcohol or drug problem. Does not consume tobacco. Past arrest; no current legal problems. Not nondenominational or spiritual. Exercises daily. 06/15/24 21:53 - Psychiatric Liason Note by Nidhi Esparza: "Patient arrived to unit at 2118, 201, suicidal ideation. Pleasant and cooperative. She was provided a tour of unit on arrival. She presented to ED with SI with plan to jump of a bridge, and states "I almost hit a tree today." She denies any past attempts. Last inpatient stay was at [place] in 2014. Her PCP, Dr. Blanco, [facility] prescribes her medications. She does have a therapist, Kelly at [facility] [place]. Next appt. 06/24. She identifies her stressors as her fiance's legal issues, (DUI with possible penitentiary time). She is currently staying with a friend. She is which is amicable, and coparent their 2 children 10 & 12. They currently reside with their father. She is prescribed Depakote for migraines. She does take Lexapro which she reports was increased from 10mg to 20mg a month ago. She denies any D&A issues, and denies smoking. Denies any access to weapons. She did sign [facility] for PCP, and [facility]. Belongings were searched and secured. Placed on Suicide precautions and safety checks. " Past Psychiatric History Current Psychiatric Diagnosis: Depression, Anxiety Do You Have Access To A Gun?: No History of Previous Suicide Attempt: No Allergies Allergy/AdvReac Type Severity Reaction Status Date / Time latex Allergy Mild RASH Verified 06/14/24 15:23 No Known Drug Allergies Allergy Mild Unverified 06/14/24 15:23 Home Medications Medication Instructions Recorded Confirmed Type magnesium oxide 400 mg (241.3 mg 400 mg PO DAILY 30 days #30 tabs 04/29/24 06/15/24 Rx magnesium) tablet riboflavin (vitamin B2) 400 mg 400 mg PO DAILY 30 days #30 tabs 04/29/24 06/15/24 Rx tablet rimegepant 75 mg disintegrating 75 mg PO DAILY PRN migraine 04/29/24 06/15/24 Rx tablet (Nurtec ODT) headache 30 days #8 tabs escitalopram oxalate 10 mg tablet 20 mg (2 x 10 mg) PO DAILY #90 tabs 05/03/24 06/15/24 Rx divalproex 250 mg tablet,delayed 250 mg PO 1XD 06/15/24 06/15/24 History release pantoprazole 40 mg tablet,delayed 40 mg PO 1XD 06/15/24 06/15/24 History release Family History Family History of: Depression and Anxiety Family Mental Health History Comment: Mother, Father Alcohol History Hx of Alcohol Use Over the Past 12 Months: No AUDIT Total Score: 3 Smoking Use Smoking Status: Never smoker Substance History Hx of Prescription Med Misuse Over the Past 12 Months: No Hx of Over the Counter Med Misuse Over the Past 12 Months: No Hx of Inhalent Misuse Over the Past 12 Months: No Hx of Organic Substance Use Over the Past 12 Months: No Hx of Illegal Substances/Street Drug Use Over Past 12 Months: No Problems as a Result of Past Substance Use: None Identified Personal History Living Arrangements: staying with a friend Living Arrangements Comments: Living w a friend until I can get a place Highest Grade Completed: High School Graduate Marital Status: Beliefs That Will Affect Care: None Patient History Medical History Seizures diagnosed in 2018--per pt when asked what kind of seizure she stated "I dont know I was just told I passed out in my mom's kitchen"--only ever had the 1, no neurologist, no meds Surgical History History of ankle surgery Dr. Montaño 02/04/24 - R ANKLE S/P ligament repair Hx of dilation and curettage 12/26 History of esophagogastroduodenoscopy (EGD) History of wisdom tooth extraction H/O section x 2 History of cholecystectomy (2012) H/O exploratory laparotomy "lysis of adhesions" Tubal ligation status Family History Uncle Seizures Grandmother (Paternal) Breast cancer Grandmother (Maternal) Heart disease Myocardial infarction Grandfather (Maternal) Diabetes Mother Diabetes Father Depression Other No family history of adverse response to anesthesia Denies family history of Ovarian cancer Prostate cancer Lung cancer Colorectal cancer Social History Smoking Status: Never smoker Tobacco Type: Cigarettes Age Started Using Tobacco: 19; Age Quit Using Tobacco: 25; Second Hand Exposure: No; Do You Dip or Chew Tobacco: No; Hx Alcohol Use: No Hx Substance Use: No Preferred Language: Urdu Communication Ability: Effective Visual Impairment: No Limitations Hearing Ability: Normal 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 Beliefs That Will Affect Care: None marital status: Current Living Situation: Family Current Living Situation Comment: Spouse and 2 children, and father current occupational status: employed current occupation: [employer] How many Children do You have: 2 Feels Safe at Home: Yes Diet: regular during the past year weight has: decreased > 10 lbs Dental Care, Regularly: Yes Physical Activity Frequency: 3-4 Times per Week Physical Activity Frequency Comment: Walk Seatbelt Use: always Gender Identity: Female Assistive Devices: Glasses Physical Exam Mental Examination: Appearance: Disheveled Eye Contact: Maintains Eye Contact Motor Behavior: Unremarkable Speech: Normal Mood: Anxious Affect: Constricted Thought Process: Intact Thought Content: Intact and Linear Hallucinations: None Insight: Fair Judgement: Fair Vital Signs (Past 24 Hours): Last Vital Signs Temp 36.6 C 06/16/24 06:40 Pulse 106 H 06/16/24 06:40 Resp 16 06/16/24 06:40 BP 98/64 L 06/16/24 06:40 Pulse Ox 98 06/15/24 21:25 O2 Del Method Room Air 06/15/24 21:25 Exam Statement: A physical exam was performed in the ED for the purposes of medical clearance. I accept that physical as correct and adequate for the purposes of the inpatient physical exam. Results & Data ([facility]) Laboratory Results Laboratory Results - last 24 hr 06/15/24 06/15/24 06/15/24 17:38 17:45 19:40 WBC 11.02 H RBC 4.52 Hgb 13.5 Hct 39.8 MCV 88.1 MCH 29.9 MCHC 33.9 RDW Std Deviation 41.1 RDW Coeff of Laura 12.7 Plt Count 290 MPV 11.5 Immature Gran % (Auto) 0.4 Neut % (Auto) 70.5 Lymph % (Auto) 20.3 [place] % (Auto) 7.0 Eos % (Auto) 1.3 Baso % (Auto) 0.5 Neut # (Auto) 7.77 H Lymph # (Auto) 2.24 [place] # (Auto) 0.77 H Eos # (Auto) 0.14 Baso # (Auto) 0.06 Immature Gran # (Auto) 0.04 Sodium 139 Potassium 3.6 Chloride 107 Carbon Dioxide 23 Anion Gap 9 BUN 12 Creatinine 0.50 L Est Cr Clr Drug Dosing 193.6 Est GFR ( Amer) 148.4 Est GFR (Non-Af Amer) 128.1 BUN/Creatinine Ratio 24.0 H Glucose 88 Calcium 9.0 Total Bilirubin 0.5 AST 17 ALT 10 Alkaline Phosphatase 80 Total Protein 7.6 Albumin 4.5 Globulin 3.1 Albumin/Globulin Ratio 1.5 TSH 0.890 Urine Color Dark Yellow Urine Appearance Cloudy A Urine pH 6.0 Ur Specific [place] 1.026 Urine Protein Trace H Urine Glucose (UA) Negative Urine Ketones 2+ H Urine Blood Negative Urine Nitrite Negative Urine Bilirubin 1+ H Urine Urobilinogen Negative Ur Leukocyte Esterase Trace H Urine WBC (Auto) 11-20 H Urine RBC (Auto) 3-5 H U Hyaline Cast (Auto) 0-2 U Epithel Cells (Auto) 11-20 H Urine Bacteria (Auto) 2+ H Urine Mucus Present A POC Ur Test Salicylates < 3.0 L Urine Opiates Screen Neg Ur Methadone, Qual Neg Urine Fentanyl Screen Neg Acetaminophen < 3 L Urine Barbiturates Neg Ur Phencyclidine (PCP) Neg U Amphetamin/Meth Scrn Neg MDMA (Ecstasy) Screen Neg U Benzodiazepines Scrn Neg Ur Cocaine Metabolite Neg U Marijuana (THC) Screen Neg Ethyl Alcohol mg/dL < 10.0 SARS-CoV-2, RNA, NAAT NEGATIVE 06/15/24 Unknown WBC RBC Hgb Hct MCV MCH MCHC RDW Std Deviation RDW Coeff of Laura Plt Count MPV Immature Gran % (Auto) Neut % (Auto) Lymph % (Auto) [place] % (Auto) Eos % (Auto) Baso % (Auto) Neut # (Auto) Lymph # (Auto) [place] # (Auto) Eos # (Auto) Baso # (Auto) Immature Gran # (Auto) Sodium Potassium Chloride Carbon Dioxide Anion Gap BUN Creatinine Est Cr Clr Drug Dosing Est GFR ( Amer) Est GFR (Non-Af Amer) BUN/Creatinine Ratio Glucose Calcium Total Bilirubin AST ALT Alkaline Phosphatase Total Protein Albumin Globulin Albumin/Globulin Ratio TSH Urine Color Urine Appearance Urine pH Ur Specific [place] Urine Protein Urine Glucose (UA) Urine Ketones Urine Blood Urine Nitrite Urine Bilirubin Urine Urobilinogen Ur Leukocyte Esterase Urine WBC (Auto) Urine RBC (Auto) U Hyaline Cast (Auto) U Epithel Cells (Auto) Urine Bacteria (Auto) Urine Mucus POC Ur Test NEG Salicylates Urine Opiates Screen Ur Methadone, Qual Urine Fentanyl Screen Acetaminophen Urine Barbiturates Ur Phencyclidine (PCP) U Amphetamin/Meth Scrn MDMA (Ecstasy) Screen U Benzodiazepines Scrn Ur Cocaine Metabolite U Marijuana (THC) Screen Ethyl Alcohol mg/dL SARS-CoV-2, RNA, NAAT Current Inpatient Medications Current Inpatient Medications: Current Inpatient Medications Acetaminophen (Acetaminophen 325 Mg Tab) 650 mg PO Q4H PRN PRN Reason: Headache or Minor Fever Stop: 07/15/24 21:52 Al Hydrox/Mg Hydrox/Simethicone (Aluminum/Magnesium Susp 30 Ml Udc) 30 ml PO Q4H PRN PRN Reason: GI Upset Stop: 07/15/24 21:52 Aripiprazole (Aripiprazole 1 Mg/Ml Oral Soln 150 Ml Btl) 2 mg PO HS AGUS Stop: 07/16/24 21:59 Bismuth Subsalicylate (Bismuth Subsalicylate Liqd 236 Ml) 15 ml PO PRN PRN PRN Reason: Loose Stool Stop: 07/15/24 21:52 Divalproex Sodium (Divalproex Delay Release 250 Mg Tabec) 250 mg PO BID AGUS Stop: 07/15/24 21:44 Last Admin: 06/16/24 08:46 Dose: 250 mg Escitalopram Oxalate (Escitalopram Oxalate 20 Mg Tab) 20 mg PO QAM AGUS Stop: 07/16/24 08:59 Last Admin: 06/16/24 08:46 Dose: 20 mg Hydroxyzine HCl (Hydroxyzine Hcl 25 Mg Tab) 50 mg PO HSZ PRN PRN Reason: Insomnia Stop: 07/15/24 21:52 Hydroxyzine HCl (Hydroxyzine Hcl 25 Mg Tab) 25 mg PO Q4H PRN PRN Reason: Anxiety Stop: 07/15/24 21:52 Hydroxyzine HCl (Hydroxyzine Hcl 25 Mg Tab) 50 mg PO HS AGUS Stop: 07/16/24 21:59 Magnesium Hydroxide (Magnesium Hydroxide Susp 30 Ml Udc) 30 ml PO DAILY PRN PRN Reason: Constipation Stop: 07/15/24 21:52 Magnesium Oxide (Magnesium Oxide 400 Mg Tab) 400 mg PO HS AGUS Stop: 07/15/24 21:59 Last Admin: 06/15/24 22:28 Dose: 400 mg Pantoprazole Sodium (Pantoprazole 40 Mg Tab) 40 mg PO QAM [facility] Stop: 07/16/24 08:59 Last Admin: 06/16/24 08:46 Dose: 40 mg Sodium Chloride (Sodium Chloride 0.65% Na Soln 45 Ml ([place])) 1 - 2 sprays NA PRN PRN PRN Reason: Nasal Dryness/Congestion Stop: 07/15/24 21:52 Sumatriptan Succinate (Sumatriptan Succinate 25 Mg Tab) 25 mg PO BID PRN PRN Reason: Migraine Headache Stop: 07/16/24 12:34 Vitamin D (Cholecalciferol 125 Mcg (5,000 Units) Tab) 125 mcg PO QAM [facility] Stop: 07/16/24 12:44 Last Admin: 06/16/24 13:43 Dose: 125 mcg
[2024-06-16] MEDS: hydrOXYzine HCl 25 MG TAB PO SCH (20:36)
[2024-06-16] MEDS: ARIPiprazole 5 MG TAB PO SCH (21:30)
[2024-06-16] MEDS ORDERED: ARIPIprazole 1 MG/ML ORAL SOLN 150 ML BTL PO SCH (22:00)
[2024-06-17 08:12] LABS: Estimated Average Glucose 105 mg/dl; Hemoglobin A1C 5.3 % (4.5-5.6)
[2024-06-17 08:25] LABS: Chol HDL Ratio 2.8 (0-5)
--- NOTE | 2024-06-17 14:51 | Psychiatric Progress Note ---
Date of Service June 17, 2024 Impression / Recommendations Impression Kyung Araiza is in relationship, , domiciled with friends 33 y/o white female h/o depression, anxiety, migraines, gastroparesis who presents with suicidal ideation with plan to crash MV into tree in the context of relationship, social, and family stressors. She was admitted on 06/15/24 20:54 on a 201 voluntary commitment for suicidal ideation. Patient presents an improved outlook and a brighter affect. She scored positively on the VENU-7 screener with a score of 17 and presented some cluster B symptoms on the borderline personality screener. She was counseled about cognitive distortions and benefits of cognitive behavioral therapy. There is concern for sleep apnea and poor sleep hygiene and she was counseled on this. She is tolerating the Abilify well with no complaints. Overall, I spent a total of 30 minutes with this case including review of chart records, nursing report, review of lab work, direct evaluation of the patient at bedside, counseling the patient, multidisciplinary team meeting, orders, and documentation in the electronic health record. (1) MDD (major depressive disorder), recurrent episode, moderate: (2) MDD (major depressive disorder), recurrent episode, severe: error, unable to delete on EHR (3) Cluster B personality disorder: (4) Gastroparesis: (5) Migraines: Plan 06/17/2024: Continue medications and treatment plan. 06/16/24:The patient was admitted to the [facility] ([facility]) on q15 min checks (behavioral with suicide precautions) for safety. The patient will participate in group, recreational, and milieu therapies and will be offered additional individual and family sessions as clinically appropriate. Continue home escitalopram 20 mg daily for depression Continue valproic acid 250 mg twice daily for migraines Start aripiprazole 2.5 mg at bedtime for SSRI augmentation Start hydroxyzine 50 mg at bedtime for insomnia Start sumatriptan 25 mg twice daily as needed for migraines Start vitamin D 5000 units daily Labs: A1c/lipid profile/vitamin D Administer Marquez borderline personality screener and VENU-7 Inventory Assets Strengths: family support, insight Needs: outpatient connection, psychotherapy Suicide Risk Level Suicide Risk Level: Moderate (q15 min suicide checks) Risk Factors Assessment Male: No : Yes Do You Have Access To A Gun?: No Health Problems: No Mental Health Diagnoses: Yes Substance Use Disorders: No Previous Attempt: No Family History of Suicide: No Previous Psychiatric Hospitalization: No Hopelessness: No Protective Factors Assessment Gnosticist Beliefs: No : Yes Responsible for Young Children: No Employed: Yes ([employer]) Stable Relationships: Yes Supportive Family: Yes Good Rapport with Provider: Yes Absence of Any Risk Factors Above: No Interval History Identifying Information Kyung Araiza is in relationship, , domiciled with friends 33 y/o white female h/o depression, anxiety, migraines, gastroparesis who presents with suicidal ideation with plan to crash MV into tree in the context of relationship, social, and family stressors. She was admitted on 06/15/24 20:54 on a 201 voluntary commitment for suicidal ideation. Chief Complaint "Slept well" Review of Systems Sleep Information Total Hours of Sleep: 7.15 Sleep Comments: MAC Garcia and Ricki Meal Information Percent Meal Consumed - Breakfast: 100 Percent Meal Consumed - Lunch: 100 Percent Meal Consumed - Dinner: 100 Subjective Subjective Patient was seen & assessed and interval progress reviewed with treatment team nursing and social work Nursing reports patient slept 7 hours. On interview patient reports feeling rested. Says that she has less worries today. She reports often feeling nervous and anxious and being unable to stop or control worrying. She worries about her finances, family, how others will perceive her. She explains a situation where sometimes people look at her and she feels that she is judged. At that time she feels inadequate or questions her parents. This then leads to her feeling sad and worthless and she isolates. She was counseled about cognitive distortions. She complains of difficulty regulating her mood and feels angry at times. Complains of chronic feelings of emptiness. She reports goals of taking her medications and going to therapy. She wants to have a stable marriage and live independently and have a better relationship with her kids. Physical Exam Mental Examination Appearance: Disheveled Eye Contact: Maintains Eye Contact Motor Behavior: Unremarkable Speech: Normal Mood: Anxious Affect: Constricted Thought Process: Intact Thought Content: Intact and Linear Hallucinations: None Insight: Fair Judgement: Fair Vital Signs (Past 24 Hours) Last Vital Signs Temp 37 C 06/17/24 06:47 Pulse 87 06/17/24 06:47 Resp 16 06/17/24 06:47 BP 121/80 06/17/24 06:47 Pulse Ox 98 06/15/24 21:25 O2 Del Method Room Air 06/15/24 21:25 Results & Data ([facility]) Laboratory Results Laboratory Results - last 24 hr 06/17/24 07:27 Estimat Average Glucose 105 Hemoglobin A1c 5.3 Triglycerides 72 Cholesterol 131 LDL Cholesterol, Calc 71 VLDL Cholesterol, Calc 14 HDL Cholesterol 46 Cholesterol/HDL Ratio 2.8 25-OH Vitamin D Total 16.5 L Current Inpatient Medications Current Inpatient Medications: Current Inpatient Medications Acetaminophen (Acetaminophen 325 Mg Tab) 650 mg PO Q4H PRN PRN Reason: Headache or Minor Fever Stop: 07/15/24 21:52 Al Hydrox/Mg Hydrox/Simethicone (Aluminum/Magnesium Susp 30 Ml Udc) 30 ml PO Q4H PRN PRN Reason: GI Upset Stop: 07/15/24 21:52 Aripiprazole (Aripiprazole 5 Mg Tab) 2.5 mg PO HS AGUS Stop: 07/16/24 21:59 Last Admin: 06/16/24 21:30 Dose: 2.5 mg Bismuth Subsalicylate (Bismuth Subsalicylate Liqd 236 Ml) 15 ml PO PRN PRN PRN Reason: Loose Stool Stop: 07/15/24 21:52 Divalproex Sodium (Divalproex Delay Release 250 Mg Tabec) 250 mg PO BID AGUS Stop: 07/15/24 21:44 Last Admin: 06/17/24 08:05 Dose: 250 mg Escitalopram Oxalate (Escitalopram Oxalate 20 Mg Tab) 20 mg PO QAM AGUS Stop: 07/16/24 08:59 Last Admin: 06/17/24 08:05 Dose: 20 mg Hydroxyzine HCl (Hydroxyzine Hcl 25 Mg Tab) 50 mg PO HSZ PRN PRN Reason: Insomnia Stop: 07/15/24 21:52 Hydroxyzine HCl (Hydroxyzine Hcl 25 Mg Tab) 25 mg PO Q4H PRN PRN Reason: Anxiety Stop: 07/15/24 21:52 Hydroxyzine HCl (Hydroxyzine Hcl 25 Mg Tab) 50 mg PO HS AGUS Stop: 07/16/24 21:59 Last Admin: 06/16/24 20:36 Dose: 50 mg Magnesium Hydroxide (Magnesium Hydroxide Susp 30 Ml Udc) 30 ml PO DAILY PRN PRN Reason: Constipation Stop: 07/15/24 21:52 Magnesium Oxide (Magnesium Oxide 400 Mg Tab) 400 mg PO HS AGUS Stop: 07/15/24 21:59 Last Admin: 06/16/24 20:35 Dose: 400 mg Pantoprazole Sodium (Pantoprazole 40 Mg Tab) 40 mg PO QAM AGUS Stop: 07/16/24 08:59 Last Admin: 06/17/24 08:05 Dose: 40 mg Sodium Chloride (Sodium Chloride 0.65% Na Soln 45 Ml ([place])) 1 - 2 sprays NA PRN PRN PRN Reason: Nasal Dryness/Congestion Stop: 07/15/24 21:52 Sumatriptan Succinate (Sumatriptan Succinate 25 Mg Tab) 25 mg PO BID PRN PRN Reason: Migraine Headache Stop: 07/16/24 12:34 Vitamin D (Cholecalciferol 125 Mcg (5,000 Units) Tab) 125 mcg PO QAM AGUS Stop: 07/16/24 12:44 Last Admin: 06/17/24 08:05 Dose: 125 mcg Mental Health & Subst Abuse Tx Psychiatrist Name of Psychiatrist: Darryl Taylor Psychiatrist's Date Of Appointment With Psychiatric Provider: 07/07/24 Time of Appointment with Psychiatrist: 4 PM Psychiatric Appointment Comment: [address], [address], [facility] [id number] - In person appointment Therapist Name of Therapist: Kelly Date of Therapist Appointment: 06/24/24 Post Discharge Appointments Primary Care Physician Name Of Family Doctor/PCP: Dr. Vangie Blanco (5) Migraines Migraine type: chronic migraine (15 or more days per month) without aura Status migrainosus presence: without status migrainosus
--- NOTE | 2024-06-18 13:35 | Psychiatric Progress Note ---
Date of Service June 18, 2024 Impression / Recommendations Impression Kyung Araiza is in relationship, , domiciled with friends 33 y/o white female h/o depression, anxiety, migraines, gastroparesis who presents with suicidal ideation with plan to crash MV into tree in the context of relationship, social, and family stressors. She was admitted on 06/15/24 20:54 on a 201 voluntary commitment for suicidal ideation. Patient presents improved mood and has been sleeping well. She was counseled about cognitive behavioral therapy and benefits with her current thoughts and self judgment. She was educated about automatic thoughts and advised to identify problematic thoughts. Recent labs reviewed and A1c and lipid profile within expected limits; vitamin D deficient at 16.5. Overall, I spent a total of 30 minutes with this case including review of chart records, nursing report, review of lab work, direct evaluation of the patient at bedside, counseling the patient, multidisciplinary team meeting, orders, and documentation in the electronic health record. (1) MDD (major depressive disorder), recurrent episode, moderate: (2) Cluster B personality disorder: (3) Gastroparesis: (4) Migraines: Plan 06/18/2024: Start Colace 100 mg twice daily. MiraLAX 17 g packet once. Start Metamucil supplement daily. 06/17/2024: Continue medications and treatment plan. 06/16/24:The patient was admitted to the [facility] ([facility] mental [facility] unit) on q15 min checks (behavioral with suicide precautions) for safety. The patient will participate in group, recreational, and milieu therapies and will be offered additional individual and family sessions as clinically appropriate. Continue home escitalopram 20 mg daily for depression Continue valproic acid 250 mg twice daily for migraines Start aripiprazole 2.5 mg at bedtime for SSRI augmentation Start hydroxyzine 50 mg at bedtime for insomnia Start sumatriptan 25 mg twice daily as needed for migraines Start vitamin D 5000 units daily Labs: A1c/lipid profile/vitamin D Administer Marquez borderline personality screener and VENU-7 Inventory Assets Strengths: family support, insight Needs: outpatient connection, psychotherapy Suicide Risk Level Suicide Risk Level: Moderate (q15 min suicide checks) Risk Factors Assessment Male: No : Yes Do You Have Access To A Gun?: No Health Problems: No Mental Health Diagnoses: Yes Substance Use Disorders: No Previous Attempt: No Family History of Suicide: No Previous Psychiatric Hospitalization: No Hopelessness: No Protective Factors Assessment Mu-Ism Beliefs: No : Yes Responsible for Young Children: No Employed: Yes ([employer]) Stable Relationships: Yes Supportive Family: Yes Good Rapport with Provider: Yes Absence of Any Risk Factors Above: No Interval History Identifying Information Kyung Araiza is in relationship, , domiciled with friends 33 y/o white female h/o depression, anxiety, migraines, gastroparesis who presents with suicidal ideation with plan to crash MV into tree in the context of relationship, social, and family stressors. She was admitted on 06/15/24 20:54 on a 201 voluntary commitment for suicidal ideation. Chief Complaint "Refreshed" Review of Systems Sleep Information Total Hours of Sleep: 7.75 Sleep Comments: MAC Garcia and Ricki Meal Information Percent Meal Consumed - Breakfast: 100 Percent Meal Consumed - Lunch: 100 Percent Meal Consumed - Dinner: 100 Subjective Subjective Patient was seen & assessed and interval progress reviewed with treatment team nursing and social work Patient reports doing well. Slept well last night. Reports improvement in restless thoughts. Says migraines have resolved. Complains of no bowel movement since Friday. Reports this has been an issue with her gastroparesis even at home. We discuss the thought mood and behavior cycle and discussed past episodes where she has automatic thoughts that impact her mood and functioning. She denies suicidal ideation. Physical Exam Mental Examination Appearance: Well Groomed Eye Contact: Maintains Eye Contact Motor Behavior: Unremarkable Speech: Normal Mood: Euthymic Affect: Constricted Thought Process: Intact Thought Content: Intact and Linear Hallucinations: None Insight: Fair Judgement: Fair Vital Signs (Past 24 Hours) Last Vital Signs Temp 36.7 C 06/18/24 06:49 Pulse 90 06/18/24 06:49 Resp 16 06/18/24 06:49 BP 96/61 L 06/18/24 06:49 Pulse Ox 98 06/15/24 21:25 O2 Del Method Room Air 06/15/24 21:25 Results & Data ([facility]) Current Inpatient Medications Current Inpatient Medications: Current Inpatient Medications Acetaminophen (Acetaminophen 325 Mg Tab) 650 mg PO Q4H PRN PRN Reason: Headache or Minor Fever Stop: 07/15/24 21:52 Al Hydrox/Mg Hydrox/Simethicone (Aluminum/Magnesium Susp 30 Ml Udc) 30 ml PO Q4H PRN PRN Reason: GI Upset Stop: 07/15/24 21:52 Aripiprazole (Aripiprazole 5 Mg Tab) 2.5 mg PO HS [facility]US Stop: 07/16/24 21:59 Last Admin: 06/17/24 21:23 Dose: 2.5 mg Bismuth Subsalicylate (Bismuth Subsalicylate Liqd 236 Ml) 15 ml PO PRN PRN PRN Reason: Loose Stool Stop: 07/15/24 21:52 Divalproex Sodium (Divalproex Delay Release 250 Mg Tabec) 250 mg PO BID [facility] Stop: 07/15/24 21:44 Last Admin: 06/18/24 08:30 Dose: 250 mg Docusate Sodium (Docusate Sodium 100 Mg Cap) 100 mg PO BID [facility] Stop: 07/18/24 13:04 Escitalopram Oxalate (Escitalopram Oxalate 20 Mg Tab) 20 mg PO QAM [facility] Stop: 07/16/24 08:59 Last Admin: 06/18/24 08:30 Dose: 20 mg Hydroxyzine HCl (Hydroxyzine Hcl 25 Mg Tab) 50 mg PO HSZ PRN PRN Reason: Insomnia Stop: 07/15/24 21:52 Hydroxyzine HCl (Hydroxyzine Hcl 25 Mg Tab) 25 mg PO Q4H PRN PRN Reason: Anxiety Stop: 07/15/24 21:52 Hydroxyzine HCl (Hydroxyzine Hcl 25 Mg Tab) 50 mg PO HS [facility] Stop: 07/16/24 21:59 Last Admin: 06/17/24 21:22 Dose: 50 mg Magnesium Hydroxide (Magnesium Hydroxide Susp 30 Ml Udc) 30 ml PO DAILY PRN PRN Reason: Constipation Stop: 07/15/24 21:52 Magnesium Oxide (Magnesium Oxide 400 Mg Tab) 400 mg PO HS [facility] Stop: 07/15/24 21:59 Last Admin: 06/17/24 21:21 Dose: 400 mg Pantoprazole Sodium (Pantoprazole 40 Mg Tab) 40 mg PO QAM [facility] Stop: 07/16/24 08:59 Last Admin: 06/18/24 08:30 Dose: 40 mg Psyllium Hydrophilic Mucilloid (Psyllium Or Guar Gum Fiber 4gm Packet) 4 gm PO QAM [facility] Stop: 07/19/24 08:59 Sodium Chloride (Sodium Chloride 0.65% Na Soln 45 Ml ([place])) 1 - 2 sprays NA PRN PRN PRN Reason: Nasal Dryness/Congestion Stop: 07/15/24 21:52 Sumatriptan Succinate (Sumatriptan Succinate 25 Mg Tab) 25 mg PO BID PRN PRN Reason: Migraine Headache Stop: 07/16/24 12:34 Vitamin D (Cholecalciferol 125 Mcg (5,000 Units) Tab) 125 mcg PO QAM [facility] Stop: 07/16/24 12:44 Last Admin: 06/18/24 08:30 Dose: 125 mcg Mental Health & Subst Abuse Tx Psychiatrist Name of Psychiatrist: Darryl Taylor Psychiatrist's Date Of Appointment With Psychiatric Provider: 07/07/24 Time of Appointment with Psychiatrist: 4 PM Psychiatric Appointment Comment: [address], [address], [facility] [address] - In person appointment Therapist Name of Therapist: Kelly Therapist's Date of Therapist Appointment: 06/24/24 - Time of Therapist Appointment: 2:45PM Therapy Appointment Comment: In person Post Discharge Appointments Primary Care Physician Name Of Family Doctor/PCP: Dr. Vangie Blanco (4) Migraines Migraine type: chronic migraine (15 or more days per month) without aura Status migrainosus presence: without status migrainosus
[2024-06-18] MEDS: DOCUSATE SODIUM 100 MG CAP PO SCH (14:06)
[2024-06-18] MEDS: POLYETHYLENE (MIRALAX) 17 GM PACK PO ONE (14:06)
[2024-06-19] MEDS: PSYLLIUM or GUAR GUM FIBER 4GM PACKET PO SCH (08:44)
--- NOTE | 2024-06-19 09:17 | Psychiatric Progress Note ---
Date of Service June 19, 2024 Impression / Recommendations Impression Kyung Araiza is a 33 y/o woman with a h/o depression, anxiety, migraines, gastroparesis who presents with suicidal ideation with plan to crash MV into tree in the context of relationship, social, and family stressors. She was admitted on 06/15/24 20:54 on a 201 voluntary commitment for suicidal ideation. Diagnostically consistent with MDD and BPD. A: Mood improving, denies SI today, plans to visit with her mother today will monitor for any worsening symptoms after this given family stressors played a major role in SI prior to admission. Tolerating medications well and finding abilify helpful. Still needs support meeting. Overall, I spent a total of 35 minutes with this case including review of chart records, nursing report, review of lab work, direct evaluation of the patient at bedside, counseling the patient, multidisciplinary team meeting, orders, and documentation in the electronic health record. (1) MDD (major depressive disorder), recurrent episode, moderate: (2) Cluster B personality disorder: (3) Gastroparesis: (4) Migraines: Plan 06/19/2024: Continue current medications and tx plan. 06/18/2024: Start Colace 100 mg twice daily. MiraLAX 17 g packet once. Start Metamucil supplement daily. 06/17/2024: Continue medications and treatment plan. 06/16/24:The patient was admitted to the [facility] ([facility]) on q15 min checks (behavioral with suicide precautions) for safety. The patient will participate in group, recreational, and milieu therapies and will be offered additional individual and family sessions as clinically appropriate. Continue home escitalopram 20 mg daily for depression Continue valproic acid 250 mg twice daily for migraines Start aripiprazole 2.5 mg at bedtime for SSRI augmentation Start hydroxyzine 50 mg at bedtime for insomnia Start sumatriptan 25 mg twice daily as needed for migraines Start vitamin D 5000 units daily Labs: A1c/lipid profile/vitamin D Administer Marquez borderline personality screener and VENU-7 Inventory Assets Strengths: family support, insight Needs: outpatient connection, psychotherapy Suicide Risk Level Suicide Risk Level: Moderate (q15 min suicide checks) (SI prior to admission but now denies and mood improving, feels safe in the hospital) Risk Factors Assessment Male: No : Yes Do You Have Access To A Gun?: No Health Problems: No Mental Health Diagnoses: Yes Substance Use Disorders: No Previous Attempt: No Family History of Suicide: No Previous Psychiatric Hospitalization: No Hopelessness: No Protective Factors Assessment Holiness Beliefs: No : Yes Responsible for Young Children: No Employed: Yes ([employer]) Stable Relationships: Yes Supportive Family: Yes Good Rapport with Provider: Yes Absence of Any Risk Factors Above: No Interval History Identifying Information Kyung Araiza is in relationship, , domiciled with friends 33 y/o white female h/o depression, anxiety, migraines, gastroparesis who presents with suicidal ideation with plan to crash MV into tree in the context of relationship, social, and family stressors. She was admitted on 06/15/24 20:54 on a 201 voluntary commitment for suicidal ideation. Chief Complaint "Good". Review of Systems Sleep Information Total Hours of Sleep: 9 Sleep Comments: Routine HS vistaril Meal Information Percent Meal Consumed - Breakfast: 100 Percent Meal Consumed - Lunch: 100 Percent Meal Consumed - Dinner: 100 Subjective Subjective Patient was seen & assessed and interval progress reviewed with treatment team nursing and social work. Tolerating abilify. Attending groups. Reported mood as "tired" last evening but then also requested prn Vistaril for sleep. Today reports mood is improving, credits this to the abilify which she feels is helping to allow her to no longer feel suicidal. Looking forward to visiting with her mom today. Physical Exam Psychiatric Orientation: alert and oriented x 3 Apperance: appropriately dressed and appropriately groomed Eye Contact: good eye contact Motor Behavior: no abnormal motor movements Speech: normal rate/rhythm/volume of speech Affect: + anxious affect Mood: + depressed mood and + anxious mood Thought Process: goal directed thought process Thought Content: reality based without delusions Suicidal Thoughts: denies suicidal thoughts Homicidal Thoughts: denies homicidal thoughts Hallucinations: no auditory hallucinations and no visual hallucinations Insight: + fair insight Judgment: + fair judgement Vital Signs (Past 24 Hours) Last Vital Signs Temp 36.3 C L 06/19/24 06:29 Pulse 96 H 06/19/24 06:30 Resp 18 06/19/24 06:29 BP 98/61 L 06/19/24 06:30 Pulse Ox 97 06/19/24 06:29 O2 Del Method Room Air 06/19/24 06:29 Results & Data ([facility]) Current Inpatient Medications Current Inpatient Medications: Current Inpatient Medications Acetaminophen (Acetaminophen 325 Mg Tab) 650 mg PO Q4H PRN PRN Reason: Headache or Minor Fever Stop: 07/15/24 21:52 Al Hydrox/Mg Hydrox/Simethicone (Aluminum/Magnesium Susp 30 Ml Udc) 30 ml PO Q4H PRN PRN Reason: GI Upset Stop: 07/15/24 21:52 Aripiprazole (Aripiprazole 5 Mg Tab) 2.5 mg PO HS [facility] Stop: 07/16/24 21:59 Last Admin: 06/18/24 21:19 Dose: 2.5 mg Bismuth Subsalicylate (Bismuth Subsalicylate Liqd 236 Ml) 15 ml PO PRN PRN PRN Reason: Loose Stool Stop: 07/15/24 21:52 Divalproex Sodium (Divalproex Delay Release 250 Mg Tabec) 250 mg PO BID [facility] Stop: 07/15/24 21:44 Last Admin: 06/19/24 08:44 Dose: 250 mg Docusate Sodium (Docusate Sodium 100 Mg Cap) 100 mg PO BID [facility] Stop: 07/18/24 13:04 Last Admin: 06/19/24 08:44 Dose: 100 mg Escitalopram Oxalate (Escitalopram Oxalate 20 Mg Tab) 20 mg PO QAM [facility] Stop: 07/16/24 08:59 Last Admin: 06/19/24 08:45 Dose: 20 mg Hydroxyzine HCl (Hydroxyzine Hcl 25 Mg Tab) 50 mg PO HSZ PRN PRN Reason: Insomnia Stop: 07/15/24 21:52 Hydroxyzine HCl (Hydroxyzine Hcl 25 Mg Tab) 25 mg PO Q4H PRN PRN Reason: Anxiety Stop: 07/15/24 21:52 Hydroxyzine HCl (Hydroxyzine Hcl 25 Mg Tab) 50 mg PO HS [facility] Stop: 07/16/24 21:59 Last Admin: 06/18/24 21:19 Dose: 50 mg Magnesium Hydroxide (Magnesium Hydroxide Susp 30 Ml Udc) 30 ml PO DAILY PRN PRN Reason: Constipation Stop: 07/15/24 21:52 Magnesium Oxide (Magnesium Oxide 400 Mg Tab) 400 mg PO HS [facility] Stop: 07/15/24 21:59 Last Admin: 06/18/24 21:19 Dose: 400 mg Pantoprazole Sodium (Pantoprazole 40 Mg Tab) 40 mg PO QAM [facility] Stop: 07/16/24 08:59 Last Admin: 06/19/24 08:44 Dose: 40 mg Psyllium Hydrophilic Mucilloid (Psyllium Or Guar Gum Fiber 4gm Packet) 4 gm PO QAM [facility] Stop: 07/19/24 08:59 Last Admin: 06/19/24 08:44 Dose: 4 gm Sodium Chloride (Sodium Chloride 0.65% Na Soln 45 Ml ([place])) 1 - 2 sprays NA PRN PRN PRN Reason: Nasal Dryness/Congestion Stop: 07/15/24 21:52 Sumatriptan Succinate (Sumatriptan Succinate 25 Mg Tab) 25 mg PO BID PRN PRN Reason: Migraine Headache Stop: 07/16/24 12:34 Vitamin D (Cholecalciferol 125 Mcg (5,000 Units) Tab) 125 mcg PO QAM [facility] Stop: 07/16/24 12:44 Last Admin: 06/19/24 08:44 Dose: 125 mcg Mental Health & Subst Abuse Tx Psychiatrist Name of Psychiatrist: Darryl Taylor Psychiatrist's Date Of Appointment With Psychiatric Provider: 07/07/24 Time of Appointment with Psychiatrist: 4 PM Psychiatric Appointment Comment: [address], [address], [facility] [address] - In person appointment Therapist Name of Therapist: Kelly Therapist's Date of Therapist Appointment: 06/24/24 - Time of Therapist Appointment: 2:45PM Therapy Appointment Comment: In person Post Discharge Appointments Primary Care Physician Name Of Family Doctor/PCP: Dr. Vangie Blanco (4) Migraines Migraine type: chronic migraine (15 or more days per month) without aura Status migrainosus presence: without status migrainosus
[2024-06-19] MEDS: SUMAtriptan succinate 25 MG TAB PO PRN (12:16)
[2024-06-20 06:51] VITALS: RESP 16; TEMP 98.6; O2SAT 96
--- NOTE | 2024-06-20 09:31 | Psychiatric Progress Note ---
Date of Service June 20, 2024 Impression / Recommendations Impression Kyung Araiza is a 33 y/o woman with a h/o depression, anxiety, migraines, gastroparesis who presents with suicidal ideation with plan to crash MV into tree in the context of relationship, social, and family stressors. She was admitted on 06/15/24 20:54 on a 201 voluntary commitment for suicidal ideation. Diagnostically consistent with MDD and BPD. A: Reports mood improvement, denies SI, had a good visit with her mother. Continues to tolerate her medications well. Still needs support meeting. Overall, I spent a total of 25 minutes with this case including review of chart records, nursing report, review of lab work, direct evaluation of the patient at bedside, counseling the patient, multidisciplinary team meeting, orders, and documentation in the electronic health record. (1) MDD (major depressive disorder), recurrent episode, moderate: (2) Cluster B personality disorder: (3) Gastroparesis: (4) Migraines: Plan 06/20/2024: Continue current medications and tx plan. 06/19/2024: Continue current medications and tx plan. 06/18/2024: Start Colace 100 mg twice daily. MiraLAX 17 g packet once. Start Metamucil supplement daily. 06/17/2024: Continue medications and treatment plan. 06/16/24:The patient was admitted to the [facility] ([facility] mental health unit) on q15 min checks (behavioral with suicide precautions) for safety. The patient will participate in group, recreational, and milieu therapies and will be offered additional individual and family sessions as clinically appropriate. Continue home escitalopram 20 mg daily for depression Continue valproic acid 250 mg twice daily for migraines Start aripiprazole 2.5 mg at bedtime for SSRI augmentation Start hydroxyzine 50 mg at bedtime for insomnia Start sumatriptan 25 mg twice daily as needed for migraines Start vitamin D 5000 units daily Labs: A1c/lipid profile/vitamin D Administer Marquez borderline personality screener and VENU-7 Inventory Assets Strengths: family support, insight Needs: outpatient connection, psychotherapy Suicide Risk Level Suicide Risk Level: Moderate (q15 min suicide checks) (SI prior to admission but now denies and mood improving, feels safe in the hospital) Risk Factors Assessment Male: No : Yes Do You Have Access To A Gun?: No Health Problems: No Mental Health Diagnoses: Yes Substance Use Disorders: No Previous Attempt: No Family History of Suicide: No Previous Psychiatric Hospitalization: No Hopelessness: No Protective Factors Assessment Presybeterian Beliefs: No : Yes Responsible for Young Children: No Employed: Yes ([employer]) Stable Relationships: Yes Supportive Family: Yes Good Rapport with Provider: Yes Absence of Any Risk Factors Above: No Interval History Identifying Information Kyung Araiza is in relationship, , domiciled with friends 33 y/o white female h/o depression, anxiety, migraines, gastroparesis who presents with suicidal ideation with plan to crash MV into tree in the context of relationship, social, and family stressors. She was admitted on 06/15/24 20:54 on a 201 voluntary commitment for suicidal ideation. Chief Complaint "Good, I got a nice workout in this morning". Review of Systems Sleep Information Total Hours of Sleep: 7.45 Sleep Comments: HS Jose and Ricki Meal Information Percent Meal Consumed - Breakfast: 100 Percent Meal Consumed - Lunch: 100 Percent Meal Consumed - Dinner: 100 Subjective Subjective Patient was seen & assessed and interval progress reviewed with treatment team nursing and social work. Had a good visit with her mother yesterday, last night reported her mood as "happy". Today reports stable and good mood. Looking forward to a visit with her fiance. Participating in groups including relaxation strategies. No medication side effects. Physical Exam Psychiatric Orientation: alert and oriented x 3 Apperance: appropriately dressed and appropriately groomed Eye Contact: good eye contact Motor Behavior: no abnormal motor movements Speech: normal rate/rhythm/volume of speech Affect: euthymic affect Mood: no depressed mood and no anxious mood Thought Process: goal directed thought process Thought Content: reality based without delusions Suicidal Thoughts: denies suicidal thoughts Homicidal Thoughts: denies homicidal thoughts Hallucinations: no auditory hallucinations and no visual hallucinations Insight: + fair insight Judgment: + fair judgement Vital Signs (Past 24 Hours) Last Vital Signs Temp 37 C 06/20/24 06:49 Pulse 87 06/20/24 06:49 Resp 16 06/20/24 06:49 BP 126/83 06/20/24 06:51 Pulse Ox 96 06/20/24 06:49 O2 Del Method Room Air 06/20/24 06:49 Results & Data ([facility]) Current Inpatient Medications Current Inpatient Medications: Current Inpatient Medications Acetaminophen (Acetaminophen 325 Mg Tab) 650 mg PO Q4H PRN PRN Reason: Headache or Minor Fever Stop: 07/15/24 21:52 Al Hydrox/Mg Hydrox/Simethicone (Aluminum/Magnesium Susp 30 Ml Udc) 30 ml PO Q4H PRN PRN Reason: GI Upset Stop: 07/15/24 21:52 Aripiprazole (Aripiprazole 1 Mg/Ml Oral Soln 150 Ml Btl) 2.5 mg PO HS [facility] Stop: 07/20/24 21:59 Bismuth Subsalicylate (Bismuth Subsalicylate Liqd 236 Ml) 15 ml PO PRN PRN PRN Reason: Loose Stool Stop: 07/15/24 21:52 Divalproex Sodium (Divalproex Delay Release 250 Mg Tabec) 250 mg PO BID [facility] Stop: 07/15/24 21:44 Last Admin: 06/20/24 08:52 Dose: 250 mg Docusate Sodium (Docusate Sodium 100 Mg Cap) 100 mg PO BID [facility] Stop: 07/18/24 13:04 Last Admin: 06/20/24 08:52 Dose: 100 mg Escitalopram Oxalate (Escitalopram Oxalate 20 Mg Tab) 20 mg PO QAM [facility] Stop: 07/16/24 08:59 Last Admin: 06/20/24 08:52 Dose: 20 mg Hydroxyzine HCl (Hydroxyzine Hcl 25 Mg Tab) 50 mg PO HSZ PRN PRN Reason: Insomnia Stop: 07/15/24 21:52 Hydroxyzine HCl (Hydroxyzine Hcl 25 Mg Tab) 25 mg PO Q4H PRN PRN Reason: Anxiety Stop: 07/15/24 21:52 Hydroxyzine HCl (Hydroxyzine Hcl 25 Mg Tab) 50 mg PO HS [facility] Stop: 07/16/24 21:59 Last Admin: 06/19/24 20:57 Dose: 50 mg Magnesium Hydroxide (Magnesium Hydroxide Susp 30 Ml Udc) 30 ml PO DAILY PRN PRN Reason: Constipation Stop: 07/15/24 21:52 Magnesium Oxide (Magnesium Oxide 400 Mg Tab) 400 mg PO HS [facility] Stop: 07/15/24 21:59 Last Admin: 06/19/24 20:57 Dose: 400 mg Pantoprazole Sodium (Pantoprazole 40 Mg Tab) 40 mg PO QAM [facility] Stop: 07/16/24 08:59 Last Admin: 06/20/24 08:52 Dose: 40 mg Psyllium Hydrophilic Mucilloid (Psyllium Or Guar Gum Fiber 4gm Packet) 4 gm PO QAM [facility] Stop: 07/19/24 08:59 Last Admin: 06/20/24 08:52 Dose: 4 gm Sodium Chloride (Sodium Chloride 0.65% Na Soln 45 Ml ([place])) 1 - 2 sprays NA PRN PRN PRN Reason: Nasal Dryness/Congestion Stop: 07/15/24 21:52 Sumatriptan Succinate (Sumatriptan Succinate 25 Mg Tab) 25 mg PO BID PRN PRN Reason: Migraine Headache Stop: 07/16/24 12:34 Last Admin: 06/19/24 12:16 Dose: 25 mg Vitamin D (Cholecalciferol 125 Mcg (5,000 Units) Tab) 125 mcg PO QAM [facility] Stop: 07/16/24 12:44 Last Admin: 06/20/24 08:52 Dose: 125 mcg Mental Health & Subst Abuse Tx Psychiatrist Name of Psychiatrist: Darryl Taylor Psychiatrist's Date Of Appointment With Psychiatric Provider: 07/07/24 Time of Appointment with Psychiatrist: 4 PM Psychiatric Appointment Comment: [address], [address], [place] [address] - In person appointment Therapist Name of Therapist: Kelly Abrams's Date of Therapist Appointment: 06/24/24 - Time of Therapist Appointment: 2:45PM Therapy Appointment Comment: In person Post Discharge Appointments Primary Care Physician Name Of Family Doctor/PCP: Dr. Vangie Blanco (4) Migraines Migraine type: chronic migraine (15 or more days per month) without aura Status migrainosus presence: without status migrainosus
[2024-06-20] MEDS: ACETAMINOPHEN 325 MG TAB PO PRN (15:51)
[2024-06-20] MEDS: ARIPIprazole 1 MG/ML ORAL SOLN 150 ML BTL PO SCH (20:32)
--- NOTE | 2024-06-21 09:08 | Discharge Summary ---
Date of Service June 21, 2024 History of Present Illness Patient complains of increased suicidal ideation and mood changes. Reports stressors of fianc talking to his ex and him getting a DUI with a potential 90- day group home sentence. Additionally her children is with her father and they report not wanting to talk to her because she is "pushing them away". Reports being on Lexapro for 5 years and initially worked and then was increased to 20 mg by outpatient PCP little over a month ago. Complains of anxious ruminations "worrying about anything". Anxiety involves thoughts of self judgment about if she is fat or others will accept her. Denies having a significant depressive episode since then until now. She complains of 2-month period of depressed mood, unable to enjoy activities, loss of interest, poor concentration, lack of motivation, excessive guilt, increased fatigue, increased racing thoughts, daily crying spells. Previously enjoyed four-wheel writing and spending time with her family however no longer derives pleasure from this. Denies changes in appetite. Reports SI thoughts have been daily for the last week. Past psychiatric medications include Lexapro 20 mg; denies others. Reports past inpatient stay at [place] in 2014 for depression. Father mother and brother have depression and treated; unknown medications. Concern for anger problems in father. No family history of completed suicide. Social history: Denies access to guns. Has 2 children (12 and 10) who are with their father. Past marriage of 8 years and currently . Sexually active and heterosexual. 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 Highest level of education was high school completion. Grew up in [place]. Father was on SSI and mother did not work. Parents . Denies alcohol or drug problem. Does not consume tobacco. Past arrest; no current legal prob lems. Not mu-ism or spiritual. Exercises daily. 06/15/24 21:53 - Psychiatric Liason Note by Nidhi Esparza: "Patient arrived to unit at 2118, 201, suicidal ideation. Pleasant and cooperative. She was provided a tour of unit on arrival. She presented to ED with SI with plan to jump of a bridge, and states "I almost hit a tree today." She denies any past attempts. Last inpatient stay was at [place] in 2014. Her PCP, Dr. Blanco, [facility] prescribes her medications. She does have a therapist, Kelly at [facility]. Next appt. 06/24. She identifies her stressors as her fiance's legal issues, (DUI with possible group home time). She is currently staying with a friend. She is which is amicable, and coparent their 2 children 10 & 12. They currently reside with their father. She is prescribed Depakote for migraines. She does take Lexapro which she reports was increased from 10mg to 20mg a month ago. She denies any D&A issues, and denies smoking. Denies any access to weapons. She did sign [facility] for PCP, and [facility]. Belongings were searched and secured. Placed on Suicide precautions and safety checks. " Physical Exam Vital Signs (Past 24 Hours) Last Vital Signs Temp 37 C 06/20/24 06:49 Pulse 100 H 06/21/24 06:45 Resp 16 06/21/24 06:45 BP 117/75 06/21/24 06:45 Pulse Ox 96 06/21/24 06:45 O2 Del Method Room Air 06/21/24 06:45 Principal Diagnosis Major Depressive Disorder Psychiatric Data See daily stay summary. In short, patient was engaged with the social/therapeutic milieu of the unit, safety was maintained and the patient was cooperative with care. Medication changes included initiation of abilify for depression augmentation and they tolerated this well. Baseline labs of fasting glucose, fasting lipid profile, and weight were preformed (see labwork results below). Recommend repeat weight in one month. Recommend repeat fasting glucose, HbA1c and fasting lipid profile every 12 weeks and then annually. If symptoms arise recommend checking BP, EKG, prolactin level as clinically indicated or relevant. A support session was held and safety plan was completed prior to discharge. They participated in safety planning and in discussions about ways to seek support and recognizing warning signs and utilizing coping skills. Reviewed ways to have their safety plan and contacts easily available should thoughts of SI re-emerge in the future. Reviewed importance of seeking emergency care should SI intensify, worsen or should they feel unsafe in the future which they agree to do. On the day of discharge they stated their mood was "excited" and remained future-oriented including seeing her grandparents, celebrating her birthday and engaging in aftercare appointments for psychiatry and therapy. Day of Discharge Assessment Today the patient voices readiness for discharge. They note improvement in mood and anxiety. They deny thoughts of harm to self or others. Thoughts are organized and they are clinically improved from admission. There is no evidence of psychosis. They improved in the hospital with support and medication adjustments. They agree to take medications as prescribed and keep follow-up appointments. At the time of the discharge they are deemed to be stable and appropriate for outpatient level of care. They are not deemed to be at imminent risk of harm to self or others. They are aware of emergency and crisis services. Knows to call 911 or go to nearest emergency care center if in a crisis which cannot be handled as an outpatient. Suicide risk assessment: Acute risk is low given improvement in mood and denial of SI, lack of access to lethal means, hopefulness. Chronic risk is moderate given some non-modifiable risk factors: psychiatric co-morbid diagnoses, emotional reactivity, cluster B personality disorder but also with protective factors including employed, good social support, sense of responsibility to family and social supports, outpatient care in place, positive coping skills, positive problem solving, willingness to engage with treatment and self-observation. Counseled on ways to reduce acute and chronic risk including engaging with outpatient providers, using safety plan if needed, utilizing supports, taking medication, and using coping skills. Modifiable risk factors of SI and depression were addressed during hospitalization through development of new coping skills, support meeting, safety planning, and medication adjustments. Discharge physical exam: See admission H&P, MSE per above and day of discharge summary. Overall, I spent a total of 35 minutes on this case including meeting with the patient, reviewing the chart, nursing report, multidisciplinary team meeting, discharge orders, anticipatory planning, safety planning, risk assessment and documentation. Transition of Care Transition Of Care Record: was reviewed with the patient Advance Directives Advance Directives Information Provided: Yes Advance Directives: No Mental Health Advance Directive: No Advance Directives on File: No Living Will: No Power of Webmethods Architect: No Advance Directives Reason:: Declines as Mental Health Visit. Suicide Risk Level Suicide Risk Level Comments: Acute risk is low, see further assessment above Risk Factors Assessment Male: No : Yes Do You Have Access To A Gun?: No Health Problems: No Mental Health Diagnoses: Yes Substance Use Disorders: No Previous Attempt: No Family History of Suicide: No Previous Psychiatric Hospitalization: No Hopelessness: No Protective Factors Assessment Pentecostal Beliefs: No : Yes Responsible for Young Children: No Employed: Yes ([employer]) Stable Relationships: Yes Supportive Family: Yes Good Rapport with Provider: Yes Absence of Any Risk Factors Above: No Discharge Data Lab Results 06/15/24 06/15/24 06/15/24 17:38 17:45 19:40 WBC 11.02 H RBC 4.52 Hgb 13.5 Hct 39.8 MCV 88.1 MCH 29.9 MCHC 33.9 RDW Std Deviation 41.1 RDW Coeff of Laura 12.7 Plt Count 290 MPV 11.5 Immature Gran % (Auto) 0.4 Neut % (Auto) 70.5 Lymph % (Auto) 20.3 Gilmer % (Auto) 7.0 Eos % (Auto) 1.3 Baso % (Auto) 0.5 Neut # (Auto) 7.77 H Lymph # (Auto) 2.24 Gilmer # (Auto) 0.77 H Eos # (Auto) 0.14 Baso # (Auto) 0.06 Immature Gran # (Auto) 0.04 Sodium 139 Potassium 3.6 Chloride 107 Carbon Dioxide 23 Anion Gap 9 BUN 12 Creatinine 0.50 L Est Cr Clr Drug Dosing 193.6 Est GFR ( Amer) 148.4 Est GFR (Non-Af Amer) 128.1 BUN/Creatinine Ratio 24.0 H Glucose 88 Estimat Average Glucose Hemoglobin A1c Calcium 9.0 Total Bilirubin 0.5 AST 17 ALT 10 Alkaline Phosphatase 80 Total Protein 7.6 Albumin 4.5 Globulin 3.1 Albumin/Globulin Ratio 1.5 Triglycerides Cholesterol LDL Cholesterol, Calc VLDL Cholesterol, Calc HDL Cholesterol Cholesterol/HDL Ratio 25-OH Vitamin D Total TSH 0.890 Urine Color Dark Yellow Urine Appearance Cloudy A Urine pH 6.0 Ur Specific Portal 1.026 Urine Protein Trace H Urine Glucose (UA) Negative Urine Ketones 2+ H Urine Blood Negative Urine Nitrite Negative Urine Bilirubin 1+ H Urine Urobilinogen Negative Ur Leukocyte Esterase Trace H Urine WBC (Auto) 11-20 H Urine RBC (Auto) 3-5 H U Hyaline Cast (Auto) 0-2 U Epithel Cells (Auto) 11-20 H Urine Bacteria (Auto) 2+ H Urine Mucus Present A POC Ur Test Salicylates < 3.0 L Urine Opiates Screen Neg Ur Methadone, Qual Neg Urine Fentanyl Screen Neg Acetaminophen < 3 L Urine Barbiturates Neg Ur Phencyclidine (PCP) Neg U Amphetamin/Meth Scrn Neg MDMA (Ecstasy) Screen Neg U Benzodiazepines Scrn Neg Ur Cocaine Metabolite Neg U Marijuana (THC) Screen Neg Ethyl Alcohol mg/dL < 10.0 SARS-CoV-2, RNA, NAAT NEGATIVE 06/15/24 06/17/24 Unknown 07:27 WBC RBC Hgb Hct MCV MCH MCHC RDW Std Deviation RDW Coeff of Alura Plt Count MPV Immature Gran % (Auto) Neut % (Auto) Lymph % (Auto) Gilmer % (Auto) Eos % (Auto) Baso % (Auto) Neut # (Auto) Lymph # (Auto) Gilmer # (Auto) Eos # (Auto) Baso # (Auto) Immature Gran # (Auto) Sodium Potassium Chloride Carbon Dioxide Anion Gap BUN Creatinine Est Cr Clr Drug Dosing Est GFR ( Amer) Est GFR (Non-Af Amer) BUN/Creatinine Ratio Glucose Estimat Average Glucose 105 Hemoglobin A1c 5.3 Calcium Total Bilirubin AST ALT Alkaline Phosphatase Total Protein Albumin Globulin Albumin/Globulin Ratio Triglycerides 72 Cholesterol 131 LDL Cholesterol, Calc 71 VLDL Cholesterol, Calc 14 HDL Cholesterol 46 Cholesterol/HDL Ratio 2.8 25-OH Vitamin D Total 16.5 L TSH Urine Color Urine Appearance Urine pH Ur Specific Portal Urine Protein Urine Glucose (UA) Urine Ketones Urine Blood Urine Nitrite Urine Bilirubin Urine Urobilinogen Ur Leukocyte Esterase Urine WBC (Auto) Urine RBC (Auto) U Hyaline Cast (Auto) U Epithel Cells (Auto) Urine Bacteria (Auto) Urine Mucus POC Ur Test NEG Salicylates Urine Opiates Screen Ur Methadone, Qual Urine Fentanyl Screen Acetaminophen Urine Barbiturates Ur Phencyclidine (PCP) U Amphetamin/Meth Scrn MDMA (Ecstasy) Screen U Benzodiazepines Scrn Ur Cocaine Metabolite U Marijuana (THC) Screen Ethyl Alcohol mg/dL SARS-CoV-2, RNA, NAAT Hospital Course (1) MDD (major depressive disorder), recurrent episode, moderate: (2) Cluster B personality disorder: (3) Gastroparesis: (4) Migraines: Plan 06/20/2024: Continue current medications and tx plan. 06/19/2024: Continue current medications and tx plan. 06/18/2024: Start Colace 100 mg twice daily. MiraLAX 17 g packet once. Start Metamucil supplement daily. 06/17/2024: Continue medications and treatment plan. 06/16/24:The patient was admitted to the [facility] ([facility] mental health unit) on q15 min checks (behavioral with suicide precautions) for safety. The patient will participate in group, recreational, and milieu therapies and will be offered additional individual and family sessions as clinically appropriate. Continue home escitalopram 20 mg daily for depression Continue valproic acid 250 mg twice daily for migraines Start aripiprazole 2.5 mg at bedtime for SSRI augmentation Start hydroxyzine 50 mg at bedtime for insomnia Start sumatriptan 25 mg twice daily as needed for migraines Start vitamin D 5000 units daily Labs: A1c/lipid profile/vitamin D Administer Marquez borderline personality screener and VENU-7 Mental Health & Subst Abuse Tx Psychiatrist Name of Psychiatrist: Darryl Taylor Psychiatrist's Date Of Appointment With Psychiatric Provider: 07/07/24 Time of Appointment with Psychiatrist: 4 PM Psychiatric Appointment Comment: [address], [address], [facility] [address] - In person appointment Therapist Name of Therapist: Kelly Therapist's Date of Therapist Appointment: 06/24/24 - Time of Therapist Appointment: 2:45PM Therapy Appointment Comment: In person Post Discharge Appointments Primary Care Physician Name Of Family Doctor/PCP: Dr. Vangie Blanco Discharge Plan Discharge Items Patient Disposition: Home - Self-Care Reason For Visit: SUICIDAL IDEATION Discharge Diagnosis: Major Depressive Disorder Activity: Resume your previous activity Non-emergency contact: Primary Care Provider, Psychiatrist and Therapist Call non-emergency contact if: you have any medication questions and your symptoms worsen Follow-up/Referrals: Vangie Blanco DO [Primary Care Provider] - Diet: Regular Addtl Attending Provider Instructions: Optional mobile apps we discussed: -Suicide safety plan -Virtual Hope Box SPECIAL CARE INSTRUCTIONS: 1. Follow through with your scheduled aftercare appointments. If unable to keep an appointment, please call to reschedule. 2. Take your medication only as prescribed. Medication should not be changed or stopped without the approval of your doctor. In the event of worsening symptoms or concerns about side effects, contact your doctor immediately. 3. Utilize new healthy coping skills, anger management skills, and stress management skills learned during your hospitalization. Journal feelings and process them with a support person. Identify stressors or situations that may result in relapse, deterioration or inappropriate behaviors and develop a plan to deal with those issues. 4. If your coping skills are ineffective and you are in crisis, contact your outpatient providers for direction. If unable to reach your providers, please call the [facility] CRISIS LINE AT , go to the [facility] walk-in center at [address], [address], [place], or go to the closest Emergency Room. 5. Avoid alcohol and un-prescribed drugs. 6. You have been provided with the Mental Health Advance Directives Pamphlet for your review. 7. Your condition is stable for discharge to outpatient level of care, but recovery is an ongoing process. Ifthoughts to harm yourself or others return, follow the safety plan developed during your stay. Planning for a safe return home includes securing weapons. Our treatment team recommends weaponsbe removed from the home until your outpatient provider reassesses your progress. In rare cases where the items themselvescannot be removed, guns and ammunitionshould be secured separatelyand keys stored by a reliable personoutside of the home. If you were admitted on an involuntary commitment, the police or other legal authorities may be involved in this process. AFTERCARE APPOINTMENTS: * Please call your insurance company prior to your scheduled appointment to confirm your aftercare providers are covered. Take your insurance information to your appointments. WHO TO CALL AND WHEN: Medical Emergencies: For questions or emergencies related to your hospital stay, please contact the Inpatient Behavioral Health Unit at [phone]. A barrel marker is on-call 28/04 for the Behavioral Health Unit for emergencies At any time you feel your situation is an emergency, you may also call 911 immediately. National Crisis Hotline: 988 Pending Studies at Discharge: No Stand-Alone Forms: My [facility] Medications and DC Order Prescriptions: New aripiprazole 5 mg tablet 2.5 mg PO HS 30 Days Qty: 15 0RF hydroxyzine HCl 50 mg tablet 50 mg PO HS PRN (Reason: insomnia/anxiety ) 30 Days Qty: 30 0RF docusate sodium 100 mg Capsule 100 mg PO BID PRN (Reason: constipation) 30 Days Qty: 60 0RF cholecalciferol (vitamin D3) 125 mcg (5,000 unit) Tablet 125 mcg PO QAM 30 Days Qty: 30 0RF Metamucil 3.4 gram/5.4 gram powder 1 tbsp PO DAILY 30 Days Qty: 660 0RF Rx Instructions: mix into at least 8 oz of water or juice before administering Continued Nurtec ODT 75 mg tablet,disintegrating 75 mg PO DAILY PRN (Reason: migraine headache) 30 Days Qty: 8 3RF riboflavin (vitamin B2) 400 mg tablet 400 mg PO DAILY 30 Days Qty: 30 2RF pantoprazole 40 mg tablet,delayed release (DR/EC) 40 mg PO 1XD escitalopram oxalate 20 mg tablet 20 mg PO DAILY 30 Days Qty: 30 0RF Changed divalproex 250 mg tablet,delayed release (DR/EC) 250 mg PO BID Qty: 0 0RF magnesium oxide 400 mg (241.3 mg magnesium) tablet 400 mg PO HS 30 Days Qty: 30 3RF Discharge Orders: Discharge Order (Routine); Ordered 06/21/24 Ordered By: Shanice Campbell Admission Data Admit Date/Time: 06/15/24 20:54 Attending Provider: Shanice Campbell Admit Provider: Jose Hernandez Primary Care Provider: Vangie Blanco Other Providers: Jose Hernandez Other Interventions: Discharge Summary Assessment (RN) Last Done: 06/21/24 10:20 PSY Interdisciplinary Discharge Planning Last Done: 06/18/24 12:47 Coding Level of Care Code 43904 D/C day mgmt > 30 min Diagnoses MDD (major depressive disorder), recurrent episode, moderate F33.1 Cluster B personality disorder F60.89 Gastroparesis K31.84 Migraines G43.909 Migraine type: chronic migraine (15 or more days per month) without aura Status migrainosus presence: without status migrainosus
[2024-06-21 10:22] VITALS: BP 96/61; PULSE 83
== END 2024-06-21 11:20 | disposition home or self-care (01) | DRG 885 ==
LOC: ED 17:21 → SUATTDRO 20:54 → 3S 20:54